=== PATIENT | female | born 1945 | race Caucasian/White ===

== ENCOUNTER 2019-01-09 15:59 | Inpatient (IN) ==
--- OUTSIDE RECORDS SUMMARY | 2019-01-09 16:03 | External Medical Summary | Continuity of Care Document ---
:1945 Author Name Lanny Coleman Address Unavailable Unavailable , Care Team Providers Name Role Phone Murrell DO Unavailable [email or web address] Joaquín RICHARDS Unavailable [email or web address] Kathrin TOMAS M.D. Unavailable Unavailable Unavailable Unavailable Unavailable Problems Acute osteomyelitis (730.00) (M86.10) Allergies and Adverse Reactions Ciprofloxacin HCl TABS (Allergy) Penicillins (Allergy) Medications Oxybutynin Chloride 5 MG Oral Tablet; bid Refills: 0 Lisinopril 20 MG Oral Tablet Refills: 0 Paxil CR 37.5 MG Oral Tablet Extended Release 24 Hour Refills: 0 glipiZIDE-metFORMIN HCl - 5-500 MG Oral Tablet; 2 tabs bid Refills: 0 Januvia 100 MG Oral Tablet Refills: 0 Pravastatin Sodium 40 MG Oral Tablet Refills: 0 Triamcinolone Acetonide 0.5 % External Cream Refills: 0 Sulfamethoxazole-Trimethoprim 800-160 MG Oral Tablet; TAKE ONE TABLET BY MOUTH ONCE DAILY DO Kim Murrell Quantity: 30 Refills: 0 Procedures Procedures not documented Immunizations Immunizations not documented Family History Mother No pertinent family history (V49.89) (Z78.9) Status: Active Plan of Treatment Planned Encounters Appointment; Alondra Yanes CRNP Start: 28-Feb-2019 13:30 Request Planned Observations Planned Goals not documented Results No Known Results Results not documented Encounters Appointment; Alondra Yanes CRNP 28-Feb-2019 13:30 Encounter Diagnosis: Problem not documented
[2019-01-09] MEDS ORDERED: SODIUM CHLORIDE 0.9% 1000ML 500 ML IV ONE (16:27)
--- NOTE | 2019-01-09 16:56 | CT Scan Report ---
HEAD CT NONCONTRAST CT DOSE: 537.48 mGy.cm HISTORY: Stroke symptoms. Stroke evaluation TECHNIQUE: Multiaxial CT images of the head were performed without the use of intravenous contrast. A utomated exposure control was utilized for this study. A dose lowering technique was utilized adheri ng to the principles of ALARA. Comparison: None. Findings: The paranasal sinuses and mastoid air cells are clear. The calvarium and skull base are int act. There is no mass, hematoma, midline shift, acute infarct. White matter hypodensity is nonspecifi c but suggestive of microvascular ischemic change. The ventricles and sulci demonstrate mild age-rela ashok involutional changes. Impression: No acute intracranial abnormality. Atrophy and microvascular ischemic changes. Electronically signed by: Chino Bryant M.D. 01/09/2019 4:55 PM
--- NOTE | 2019-01-09 17:09 | XRay Report ---
XR chest 1V portable HISTORY: weakness COMPARISON: None. FINDINGS: Mild elevation the left hemidiaphragm. The heart is top normal in size. No pleural effusion s. No pneumothorax. No focal lung consolidations to suggest pneumonia. No evidence for pulmonary jun a. IMPRESSION: Mild elevation of the left hemidiaphragm. Otherwise, no acute process within the chest. Electronically signed by: Chino Bryant M.D. 01/09/2019 5:08 PM
[2019-01-09 17:19] LABS: Eosinophils # (auto) 0.03 K/uL (0-0.5); Eosinophils % (auto) 0.5 %; Hematocrit (blood only) 45.6 % (37-47); Immature Granulocytes # (auto) 0.01 K/uL (0.00-0.02); Immature Granulocytes % (auto) 0.2 %; Lymphocytes # (auto) 2.82 K/uL (1.2-3.4); Lymphocytes % (auto) 44.3 %; Mean Corpuscular Hgb Conc 35.1 g/dL (32-36); Mean Corpuscular Volume 84.3 fL (80-100); Mean Platelet Volume 9.4 fL (7.4-10.4); Monocytes % (auto) 6.3 %; Neutrophils % (auto) 48.7 %; Platelet Count 186 K/uL (130-400); RDW Coefficient of Variation 13.6 % (11.5-14.5); RDW Standard Deviation 41.9 fL (36.4-46.3); Red Blood Count 5.41 M/uL (4.2-5.4); White Blood Count 6.36 K/uL (4.8-10.8)
[2019-01-09 17:29] LABS: Appearance Urine Clear (Clear); Bilirubin Urine Negative (Negative); Blood Urine Negative (Negative); Color Urine Yellow; Glucose Urine UA 1+ (Negative); Ketones Urine Trace (Negative); Leukocyte Esterase Urine Negative (Negative); Nitrite Urine Negative (Negative); Protein Urine Negative (Negative); Specific Gravity Urine 1.014 (1.000-1.030); Urobilinogen Urine Negative (Negative)
[2019-01-09 17:32] LABS: Albumin Level 3.2 gm/dl (3.4-5.0); BUN Creatinine Ratio 15.8 (10-20); Calcium 9.3 mg/dl (8.5-10.1); Creatinine Clr Calc Pharmacy 51.6 ml/min; Est GFR (African American) 63.8; Est GFR (Non-African American) 55.1; Magnesium 1.8 mg/dl (1.8-2.4); Potassium 3.7 mmol/L (3.5-5.1)
[2019-01-09 17:33] LABS: Globulin 3.2 gm/dl (2.5-4.0); Total Protein 6.4 gm/dl (6.4-8.2); Troponin I 0.021 ng/ml (0-0.045)
[2019-01-09 18:32] LABS: INR 1.1 (0.9-1.1); Partial Thromboplastin Time 27.7 Seconds (21.0-31.0); Prothrombin Time 11.2 Seconds (9.0-12.0)
--- NOTE | 2019-01-09 19:56 | History & Physical Report ---
Date of Service January 09, 2019 Assessment & Plan (1) Stroke-like symptoms: Patient with progressive functional decline with acute worsening over the last week and 2-3 days. History of HTN, poorly controlled DM, medication nonadherance. CT head suggestive of atrophy and microvascular change. Physical exam with weakness of RUE and LUE, gait instability -Admit to PCU -Telemetry monitoring -Neuro checks -Check CTA head and neck -Check MRI brain -Check 2D echocardiogram -Lipids and AIC with AM labs -Continue Pravastatin 40mg po daily -ASA 81mg po daily -Neurology consultation appreciated Present on Admission?: Yes (2) Diabetes: Poorly controlled. Medication nonadherance. Per report, AIC > 11 at last check per family -Lantus 10u BID -ISS -CC diet -Pharmacy glycemic management consult - patient may benefit from retraining and education after acute issues resolve Present on Admission?: Yes (3) Hypertension: Blood pressure well controlled at present -Continue HCTZ and Lisinopril -Continue to monitor Present on Admission?: Yes (4) Hyperlipidemia: Chronic -Lipid panel in AM -Continue Pravastatin 40mg po daily Present on Admission?: Yes (5) Abnormal LFTs: Patient with elevated AP and Tbili, obstructive pattern, no RUQ discomfort, no jaundice -Repeat LFTs in AM -Check RUQUS (6) Depression: Chronic. Stable -Continue Paxil F/E/N - Heplock. Monitor electrolytes and replete as needed, Heart healthy/CC diet as tolerated Ppx - SCDs Code - Full Dispo - PCU History of Present Illness Chief Complaint: functional decline, stroke-like symptoms Primary Care Provider: Daniela Neves DO Patient is a 73yo C female with history of poorly controlled DM, HTN, HLP presenting with stroke-like symptoms. Patient began to have poor memory and co nfusion a few months ago. These symptoms progressively worsened oer the last week with acute worsening over the last 2-3 days. Family reports poor appetite, increased somnolence, decreased alertness and verbal response as well as weakness in the left leg and left arm, inability to walk, frequent falls, difficulty chewing, slurred speech and word finding issues. Patient denies headache or visual loss but has had some blurry vision of late. +nausea occasionally. Otherwise denies chest pain, palpitations, SOB, abdominal pain, vomiting, diarrhea, constipation. Family reports that she is not checking her blood sugars or taking her medications. Last A1C > 11 ER Course: NSS Allergies Allergy/AdvReac Type Severity Reaction Status Date / Time ciprofloxacin [From Cipro] Allergy Unknown Verified 01/09/19 17:48 Penicillins Allergy Unknown Verified 01/09/19 17:48 SURGICAL TAPE Allergy Unknown Uncoded 01/09/19 17:48 Home Medications Home Medications Medication Instructions Recorded Confirmed Type esomeprazole magnesium [Nexium] 40 mg PO DAILY 01/09/19 01/09/19 History furosemide [Lasix] 20 mg PO DAILY PRN 01/09/19 01/09/19 History glipizide-metformin 2 tab PO BID 01/09/19 01/09/19 History hydrochlorothiazide 25 mg PO HS 01/09/19 01/09/19 History insulin detemir U-100 [Levemir 22 - 25 unit SUBCUT DAILY 01/09/19 01/09/19 History FlexTouch U-100 Insuln] lisinopril 20 mg PO DAILY 01/09/19 01/09/19 History oxybutynin chloride 5 mg PO BID 01/09/19 01/09/19 History paroxetine HCl [Paxil CR] 37.5 mg PO DAILY 01/09/19 01/09/19 History pravastatin [Pravachol] 40 mg PO DAILY 01/09/19 01/09/19 History Past Med/Surg History Medical History Diabetes (Chronic) Hypertension (Chronic) Dyslipidemia Surgical History S/P cataract surgery S/P hysterectomy Family History Other Cancer Coronary heart disease Social History Preferred Language: Macedonian Current Living Situation: Alone Feels Safe at Home: Yes Smoking Status: Former smoker Hx Alcohol Use: No Hx Substance Use: No Review of Systems Review of Systems: All systems reviewed & are unremarkable except as noted in HPI & below Physical Exam Physical Exam: General: patient resting comfortably, NAD, non-toxic in appearance, AA&O to self and location, slow to answer questions Skin: warm, dry, intact, no rashes or lesions HEENT: NC/AT, pupils irregular and unreactive bilaterally, EOMI, anicteric sclera, conjunctiva without injection, external ear normal to inspection and nontender, nares patent, moist mucus membranes, missing teeth, no oropharyngeal lesions, neck supple, trachea midline, no LAD, no thyromegaly, no JVD, no carotid bruits Heart: +S1/S2, regular, no m/r/g Lungs: equal air entry bilaterally, no rales/rhonchi/wheezes Abd: +BS, soft, NT/ND, no masses/organomegaly/ascites Ext: warm, 2+ pulses in UE/LE bilaterally, no clubbing/cyanosis or edema Neuro: AA&O x 2, slow verbal response, appropriate words, no facial droop, CN grossly intact, sensation to lilght touch intact in UE/LE bilaterally, diminished strength of RUE and RLE, 4/5, gait unsteady and shuffling Results & Data Vital Signs (Past 12 Hours) Vital Signs Temp Pulse Pulse Resp BP BP Pulse Ox 01/09/19 18:00 77 20 127/69 96 01/09/19 16:02 36.9 C 82 18 126/70 97 Laboratory Results Lab Results 01/09/19 01/09/19 01/09/19 Range/Units 16:53 16:53 16:53 WBC 6.36 (4.8-10.8) K/uL RBC 5.41 H (4.2-5.4) M/uL Hgb 16.0 (12.0-16.0) g/dL Hct 45.6 (37-47) % MCV 84.3 (80-100) fL MCH 29.6 (25-34) pg MCHC 35.1 (32-36) g/dL RDW Std Deviation 41.9 (36.4-46.3) fL RDW Coeff of Catherine 13.6 (11.5-14.5) % Plt Count 186 (130-400) K/uL MPV 9.4 (7.4-10.4) fL Immature Gran % (Auto) 0.2 % Neut % (Auto) 48.7 % Lymph % (Auto) 44.3 % [place]ade % (Auto) 6.3 % Eos % (Auto) 0.5 % Baso % (Auto) 0.0 % Immature Gran # (Auto) 0.01 (0.00-0.02) K/uL Neut # (Auto) 3.10 (1.4-6.5) K/uL Lymph # (Auto) 2.82 (1.2-3.4) K/uL Meade # (Auto) 0.40 (0.11-0.59) K/uL Eos # (Auto) 0.03 (0-0.5) K/uL Baso # (Auto) 0.00 (0-0.2) K/uL PT Cancelled INR Cancelled APTT Cancelled PTT Ratio Cancelled Sodium 135 L (136-145) mmol/L Potassium 3.7 (3.5-5.1) mmol/L Chloride 95 L (98-107) mmol/L Carbon Dioxide 31 (21-32) mmol/L Anion Gap 9.0 (3-11) BUN 16 (7-18) mg/dl Creatinine 1.00 (0.6-1.2) mg/dl Est Cr Clr Drug Dosing 51.6 ml/min Est GFR ( Amer) 63.8 Est GFR (Non-Af Amer) 55.1 BUN/Creatinine Ratio 15.8 (10-20) Glucose 232 H (70-99) mg/dl Calcium 9.3 (8.5-10.1) mg/dl Magnesium 1.8 (1.8-2.4) mg/dl Total Bilirubin 2.0 H (0.2-1) mg/dl AST 27 (15-37) U/L ALT 16 (12-78) U/L Alkaline Phosphatase 231 H (45-117) U/L Troponin I 0.021 (0-0.045) ng/ml Total Protein 6.4 (6.4-8.2) gm/dl Albumin 3.2 L (3.4-5.0) gm/dl Globulin 3.2 (2.5-4.0) gm/dl Albumin/Globulin Ratio 1.0 (0.9-2) Specimen Hemolysis Urine Color Urine Appearance (Clear) Urine pH (4.5-7.5) Ur Specific [place] (1.000-1.030) Urine Protein (Negative) Urine Glucose (UA) (Negative) Urine Ketones (Negative) Urine Blood (Negative) Urine Nitrite (Negative) Urine Bilirubin (Negative) Urine Urobilinogen (Negative) Ur Leukocyte Esterase (Negative) 01/09/19 Range/Units 17:15 WBC (4.8-10.8) K/uL RBC (4.2-5.4) M/uL Hgb (12.0-16.0) g/dL Hct (37-47) % MCV (80-100) fL MCH (25-34) pg MCHC (32-36) g/dL RDW Std Deviation (36.4-46.3) fL RDW Coeff of Catherine (11.5-14.5) % Plt Count (130-400) K/uL MPV (7.4-10.4) fL Immature Gran % (Auto) % Neut % (Auto) % Lymph % (Auto) % [place] % (Auto) % Eos % (Auto) % Baso % (Auto) % Immature Gran # (Auto) (0.00-0.02) K/uL Neut # (Auto) (1.4-6.5) K/uL Lymph # (Auto) (1.2-3.4) K/uL [place]ade # (Auto) (0.11-0.59) K/uL Eos # (Auto) (0-0.5) K/uL Baso # (Auto) (0-0.2) K/uL PT INR APTT PTT Ratio Sodium (136-145) mmol/L Potassium (3.5-5.1) mmol/L Chloride (98-107) mmol/L Carbon Dioxide (21-32) mmol/L Anion Gap (3-11) BUN (7-18) mg/dl Creatinine (0.6-1.2) mg/dl Est Cr Clr Drug Dosing ml/min Est GFR ( Amer) Est GFR (Non-Af Amer) BUN/Creatinine Ratio (10-20) Glucose (70-99) mg/dl Calcium (8.5-10.1) mg/dl Magnesium (1.8-2.4) mg/dl Total Bilirubin (0.2-1) mg/dl AST (15-37) U/L ALT (12-78) U/L Alkaline Phosphatase (45-117) U/L Troponin I (0-0.045) ng/ml Total Protein (6.4-8.2) gm/dl Albumin (3.4-5.0) gm/dl Globulin (2.5-4.0) gm/dl Albumin/Globulin Ratio (0.9-2) Specimen Hemolysis Urine Color Yellow Urine Appearance Clear (Clear) Urine pH 6.0 (4.5-7.5) Ur Specific [place] 1.014 (1.000-1.030) Urine Protein Negative (Negative) Urine Glucose (UA) 1+ H (Negative) Urine Ketones Trace H (Negative) Urine Blood Negative (Negative) Urine Nitrite Negative (Negative) Urine Bilirubin Negative (Negative) Urine Urobilinogen Negative (Negative) Ur Leukocyte Esterase Negative (Negative) Diagnostic Findings XR chest 1V portable HISTORY: weakness COMPARISON: None. FINDINGS: Mild elevation the left hemidiaphragm. The heart is top normal in size. No pleural effusions. No pneumothorax. No focal lung consolidations to suggest pneumonia. No evidence for pulmonary edema. IMPRESSION: Mild elevation of the left hemidiaphragm. Otherwise, no acute process within the chest. Electronically signed by: Chino Bryant M.D. 01/09/2019 5:08 PM Dictated: 01/09/191705 Transcribed: 01/09/[address]17[address] HEAD [address] NONCONTRAST CT DOSE: 537.48 mGy.cm HISTORY: Stroke symptoms. Stroke evaluation TECHNIQUE: Multiaxial CT images of the head were performed without the use of intravenous contrast. Automated exposure control was utilized for this study. A dose lowering technique was utilized adhering to the principles of ALARA. Comparison: None. Findings: The paranasal sinuses and mastoid air cells are clear. The calvarium and skull base are intact. There is no mass, hematoma, midline shift, acute infarct. White matter hypodensity is nonspecific but suggestive of microvascular ischemic change. The ventricles and sulci demonstrate mild age-related involutional changes. Impression: No acute intracranial abnormality. Atrophy and microvascular ischemic changes. Electronically signed by: Chino Bryant M.D. 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
[2019-01-09] MEDS ORDERED: GLUCAGON FOR INJ 1 MG VIAL SQ PRN (21:07)
[2019-01-09] MEDS ORDERED: INSULIN GLARGINE SOLOSTAR 100 UNITS/ML 3 ML PEN SC SCH (21:07)
[2019-01-09] MEDS ORDERED: DEXTROSE 50% 50 ML SYRINGE IV PRN (21:07)
[2019-01-09] MEDS ORDERED: CARBOHYDRATES FOR HYPOGLYCEMIA PO PRN (21:07)
[2019-01-09] MEDS ORDERED: GLUCOSE 10 TABS/TUBE PO PRN (21:07)
[2019-01-09] MEDS ORDERED: GLUCOSE 40% GEL 15 GM TUBE PO PRN (21:07)
[2019-01-09] MEDS ORDERED: ONDANSETRON INJ 2 MG/ML 2 ML VIAL IV PRN (21:07)
[2019-01-09] MEDS ORDERED: ACETAMINOPHEN 325 MG TAB PO PRN (21:07)
[2019-01-09] MEDS ORDERED: PHARMACIST DISCHARGE MED REC CONSULT PRN (21:07)
[2019-01-09] MEDS ORDERED: PHARMACY GLYCEMIC MGMT CONSULT PRN (21:51)
[2019-01-09] MEDS ORDERED: OPTIRAY 320 125ml IV PRN (22:21)
--- NOTE | 2019-01-09 22:46 | CT Scan Report ---
HEAD & NECK CTA HISTORY: stroke like symptoms TECHNIQUE: Multiaxial CT images of the head were performed following the intravenous administration o f contrast to evaluate the major cerebral vessels. Multiaxial CT images of the neck were also perform ed following the intravenous administration of contrast to evaluate the major cervical vessels. Maxim um intensity projection images were also obtained. A dose lowering technique was utilized adhering to the principles of ALARA. COMPARISON: None. FINDINGS: There is no mass, hematoma, midline shift, or acute infarct. Visualized intracranial internal carotid arteries, distal vertebral arteries, and basilar artery are widely patent. There is no significant s tenosis, occlusion, or aneurysm seen within the bilateral MCAs, sculpture instructor, or right NANCY. Focal high-grade stenosis versus occlusion at the left A2 segment best seen on image 356. However, there is immediate reconstitution of perfusion within the remaining left NANCY.. The major dural venous sinuses are patent . The aortic arch and proximal great vessels are widely patent. There is no significant stenosis, occ lusion, or dissection identified within the bilateral common carotid, internal carotid, or vertebral arteries. Tortuous bilateral internal carotid arteries. Slightly hypoplastic right vertebral artery. IMPRESSION: 1. Focal high-grade stenosis versus occlusion at the left A2 segment. However, there is immediate rec onstitution of perfusion within the remaining left distal NANCY. 2. No significant stenosis, occlusion, or dissection identified within the carotid or vertebral arter ies. Electronically signed by: Chino Bryant M.D. 01/09/2019 10:44 PM
[2019-01-09] MEDS: hydroCHLOROthiazide 25 MG TAB PO SCH (23:28)
[2019-01-09] MEDS: OXYBUTYNIN CHLORIDE 5 MG TAB PO SCH (23:28)
[2019-01-09] MEDS: INSULIN ASPART 100 UNITS/ML 3 ML PEN SC SCH (23:36)
--- NOTE | 2019-01-10 00:24 | Emergency Department Note ---
Entered by Codi Rangel acting as a scribe for Alfonso Pearson MD History of Present Illness General Chief complaint: TIA Symptoms Stated complaint: POSSIBLE RECENT STROKE, CONFUSED, WEAK, DR REFERED Time Seen by Provider: 01/09/19 16:17 Source: patient and family (family members) History of Present Illness Onset (ago): month(s) 1 Location: head Pain Consistency: + other (worsening) Maximum Pain Intensity: 0 Quality: + other (stroke symptoms) Associated symptoms: + confusion, + nausea/vomiting (-nausea, +vomiting) and + other (-numbness/weakness in legs, -abdominal pain, -urination problems, +vision loss, +vocalization issues, +weight loss); no chest pain and no headaches The patient is a 73 year old female who presents to the Emergency Room with complaints of worsening stroke symptoms. The family states that the patient has been experiencing confusion for the past month and a loss of weight, loss of appetite, dragging of her leg, less vocalization, slowed speech, swallowing problems within the past week. The patient states that she vomited the other day that was yellow in color. She denies any headache, chest pain, nausea, numbness or weakness in her legs, abdominal pain, or urination problems. The patient states that she experienced a head injury 2 weeks ago and she experienced a headache immediate after. The family states that she almost fell on her own the other day, but her granddaughter caught her. They state that the patient has a history of diabetes mellitus, high cholesterol, and hypertension. The patient denies any thyroid issues. The family state that the patient has not been taking any medication for her hypertension. They note that the patient also has not been taking her insulin regularly. The family states that the patient has no PCP at the moment. Home Medications Home Medications Medication Instructions Recorded Confirmed Type esomeprazole magnesium [Nexium] 40 mg PO DAILY 01/09/19 01/09/19 History furosemide [Lasix] 20 mg PO DAILY PRN 01/09/19 01/09/19 History glipizide-metformin 2 tab PO BID 01/09/19 01/09/19 History hydrochlorothiazide 25 mg PO HS 01/09/19 01/09/19 History insulin detemir U-100 [Levemir 22 - 25 unit SUBCUT DAILY 01/09/19 01/09/19 History FlexTouch U-100 Insuln] lisinopril 20 mg PO DAILY 01/09/19 01/09/19 History oxybutynin chloride 5 mg PO BID 01/09/19 01/09/19 History paroxetine HCl [Paxil CR] 37.5 mg PO DAILY 01/09/19 01/09/19 History pravastatin [Pravachol] 40 mg PO DAILY 01/09/19 01/09/19 History Allergies Allergy/AdvReac Type Severity Reaction Status Date / Time ciprofloxacin [From Cipro] Allergy Unknown Verified 01/09/19 17:48 Penicillins Allergy Unknown Verified 01/09/19 17:48 SURGICAL TAPE Allergy Unknown Uncoded 01/09/19 17:48 Past Med/Surg History Medical History Diabetes (Chronic) Hypertension (Chronic) Dyslipidemia Surgical History S/P cataract surgery S/P hysterectomy Family History Other Cancer Coronary heart disease Social History Preferred Language: Greenlandic Communication Ability: Effective Glass Edger Required: No Beliefs That Will Affect Care: None Current Living Situation: Alone Other Information That Helps Us Care for You: No Feels Safe at Home: Yes Safety Concerns: Feels Safe At This Time Smoking Status: Former smoker Hx Alcohol Use: No Hx Substance Use: No Review of Systems See HPI for pertinent positives & negatives. and A total of 10 systems reviewed and were otherwise negative Physical Exam Vital Signs Vital Signs - 24 hr 01/09/19 16:02 01/09/19 18:00 Temperature 36.9 C Temperature Source Oral Sepsis Recent Fever Within 48 Hours No Sepsis New/Unexplained Change in Mental Status No Sepsis Action Taken by Nursing No Action Required Pulse Rate 82 Pulse Rate [Right Finger] 77 Respiratory Rate 18 20 Respiratory Effort / Characteristics Non-Labored Non-Labored Spontaneous Respiratory Depth Normal Normal Respiratory Pattern Regular Regular Blood Pressure 126/70 Blood Pressure [Right Arm] 127/69 Blood Pressure Mean 88 Blood Pressure Mean [Right Arm] 88 Blood Pressure Position Sitting Blood Pressure Position [Right Arm] Lying Pulse Oximetry 97 96 Oxygen Delivery Method Room Air Room Air General: Non-ill appearing older female in no acute distress. HEENT: Normal cephalic atraumatic. Pupils are equal round and reactive to light. Extraocular movements are intact. Oropharynx is pink with moist mucous membranes. No swelling of the mouth lips or tongue. Neck: Supple with a midline trachea. No meningeal signs or stiffness, no JVD or bruits. No Stridor. Chest: Clear to auscultation bilaterally. No wheezes or rhonchi. No increased work of breathing. Heart: regular rate and rhythm. Abdomen: Soft nontender, nondistended without rebound guarding or rigidity. Extremities: No cyanosis clubbing or edema. No calf tenderness or asymmetry. Previous surgery to middle finger. Spine/Back. Non tender to palpation. No CVA tenderness Skin: Good turgor without rashes. Neurologic exam: Cranial nerves two through 12 are intact. Motor and sensation are intact and symmetrical throughout. Course 1617: The patient was evaluated in room C9, and a complete history and physical examination were performed 1711: I reevaluated the patient and the nursing staff is currently drawing blood and running her urine sample. 1742: I reevaluated the patient and discussed her test results, she is currently resting comfortably. 1751: I reevaluated the patient and discussed her test results, she is currently resting comfortably. I discussed with the patient and her family the possibility of being evaluated by the hospitalist staff. The patient and her family will discuss her options. 1805: I reevaluated the patient and her and her family agreed to be further evaluated by a hospital staff. 1816: I discussed the case with Dr. Alix Paredes [facility] Hospitalist, she will further evaluate the patient. Reevaluation(s) Reevaluation #1: I discussed the case with Dr. Alix Paredes [facility] Hospitalist, she will further evaluate the patient. Time: 18:16 Administered Medications Hydrochlorothiazide (Hctz) 25 mg PO HS GREGORY Stop: 02/08/19 21:06 Last Admin: 01/09/19 23:28 Dose: 25 mg Documented by: [id number] Insulin Aspart (Novolog Flexpen) 0 units SC ACHS GREGORY Stop: 02/08/19 21:06 Last Admin: 01/09/19 23:36 Dose: 4 units Documented by: [id number] Cosigned by: [id number] Insulin Glargine (Lantus Solostar Pen) 10 units SC BID GREGORY Stop: 02/08/19 21:06 Last Admin: 01/09/19 23:37 Dose: 10 units Documented by: [id number] Cosigned by: [id number] Ioversol (Optiray 320 125ml) 115 ml IV ONCE PRN PRN Reason: Interaction Checking Stop: 01/13/19 22:20 Last Admin: 01/09/19 22:21 Dose: 115 ml Documented by: [id number] Oxybutynin Chloride (Ditropan) 5 mg PO BID GREGORY Stop: 02/08/19 21:06 Last Admin: 01/09/19 23:28 Dose: 5 mg Documented by: [id number] Discontinued Medications Sodium Chloride (Nss 1000ml) 500 mls @ 999 mls/hr IV .Q31M ONE Stop: 01/09/19 16:57 Last Infusion: 01/09/19 17:54 Dose: 0 mls/hr Documented by: [id number] Admin: 01/09/19 17:15 Dose: 999 mls/hr Documented by: [id number] Medical Decision Making Differential Diagnosis Differentials include TIA, CVA, intracranial process, electrolyte abnormality, metabolic derangement, diabetic complication, and cardiac infection. Medical Records Attestation: I reviewed the patient's medical records. Home Medications Current Medication List: was personally reviewed by me Laboratory Data Attestation: I reviewed the patient's lab results. Result diagrams: 01/09/19 16:53 01/09/19 16:53 Lab Results 01/09/19 01/09/19 01/09/19 Range/Units 16:53 16:53 16:53 WBC 6.36 (4.8-10.8) K/uL RBC 5.41 H (4.2-5.4) M/uL Hgb 16.0 (12.0-16.0) g/dL Hct 45.6 (37-47) % MCV 84.3 (80-100) fL MCH 29.6 (25-34) pg MCHC 35.1 (32-36) g/dL RDW Std Deviation 41.9 (36.4-46.3) fL RDW Coeff of Catherine 13.6 (11.5-14.5) % Plt Count 186 (130-400) K/uL MPV 9.4 (7.4-10.4) fL Immature Gran % (Auto) 0.2 % Neut % (Auto) 48.7 % Lymph % (Auto) 44.3 % Valencia % (Auto) 6.3 % Eos % (Auto) 0.5 % Baso % (Auto) 0.0 % Immature Gran # (Auto) 0.01 (0.00-0.02) K/uL Neut # (Auto) 3.10 (1.4-6.5) K/uL Lymph # (Auto) 2.82 (1.2-3.4) K/uL Valencia # (Auto) 0.40 (0.11-0.59) K/uL Eos # (Auto) 0.03 (0-0.5) K/uL Baso # (Auto) 0.00 (0-0.2) K/uL PT Cancelled INR Cancelled APTT Cancelled PTT Ratio Cancelled Sodium 135 L (136-145) mmol/L Potassium 3.7 (3.5-5.1) mmol/L Chloride 95 L (98-107) mmol/L Carbon Dioxide 31 (21-32) mmol/L Anion Gap 9.0 (3-11) BUN 16 (7-18) mg/dl Creatinine 1.00 (0.6-1.2) mg/dl Est Cr Clr Drug Dosing 51.6 ml/min Est GFR ( Amer) 63.8 Est GFR (Non-Af Amer) 55.1 BUN/Creatinine Ratio 15.8 (10-20) Glucose 232 H (70-99) mg/dl POC Glucose (70-99) Calcium 9.3 (8.5-10.1) mg/dl Magnesium 1.8 (1.8-2.4) mg/dl Total Bilirubin 2.0 H (0.2-1) mg/dl AST 27 (15-37) U/L ALT 16 (12-78) U/L Alkaline Phosphatase 231 H (45-117) U/L Troponin I 0.021 (0-0.045) ng/ml Total Protein 6.4 (6.4-8.2) gm/dl Albumin 3.2 L (3.4-5.0) gm/dl Globulin 3.2 (2.5-4.0) gm/dl Albumin/Globulin Ratio 1.0 (0.9-2) Specimen Hemolysis Urine Color Urine Appearance (Clear) Urine pH (4.5-7.5) Ur Specific Esopus (1.000-1.030) Urine Protein (Negative) Urine Glucose (UA) (Negative) Urine Ketones (Negative) Urine Blood (Negative) Urine Nitrite (Negative) Urine Bilirubin (Negative) Urine Urobilinogen (Negative) Ur Leukocyte Esterase (Negative) 01/09/19 01/09/19 01/09/19 Range/Units 17:03 17:15 18:09 WBC (4.8-10.8) K/uL RBC (4.2-5.4) M/uL Hgb (12.0-16.0) g/dL Hct (37-47) % MCV (80-100) fL MCH (25-34) pg MCHC (32-36) g/dL RDW Std Deviation (36.4-46.3) fL RDW Coeff of Catherine (11.5-14.5) % Plt Count (130-400) K/uL MPV (7.4-10.4) fL Immature Gran % (Auto) % Neut % (Auto) % Lymph % (Auto) % Valencia % (Auto) % Eos % (Auto) % Baso % (Auto) % Immature Gran # (Auto) (0.00-0.02) K/uL Neut # (Auto) (1.4-6.5) K/uL Lymph # (Auto) (1.2-3.4) K/uL Valencia # (Auto) (0.11-0.59) K/uL Eos # (Auto) (0-0.5) K/uL Baso # (Auto) (0-0.2) K/uL PT 11.2 INR 1.1 APTT 27.7 PTT Ratio 1.0 Sodium (136-145) mmol/L Potassium (3.5-5.1) mmol/L Chloride (98-107) mmol/L Carbon Dioxide (21-32) mmol/L Anion Gap (3-11) BUN (7-18) mg/dl Creatinine (0.6-1.2) mg/dl Est Cr Clr Drug Dosing ml/min Est GFR ( Amer) Est GFR (Non-Af Amer) BUN/Creatinine Ratio (10-20) Glucose (70-99) mg/dl POC Glucose 231 H (70-99) Calcium (8.5-10.1) mg/dl Magnesium (1.8-2.4) mg/dl Total Bilirubin (0.2-1) mg/dl AST (15-37) U/L ALT (12-78) U/L Alkaline Phosphatase (45-117) U/L Troponin I (0-0.045) ng/ml Total Protein (6.4-8.2) gm/dl Albumin (3.4-5.0) gm/dl Globulin (2.5-4.0) gm/dl Albumin/Globulin Ratio (0.9-2) Specimen Hemolysis Urine Color Yellow Urine Appearance Clear (Clear) Urine pH 6.0 (4.5-7.5) Ur Specific Esopus 1.014 (1.000-1.030) Urine Protein Negative (Negative) Urine Glucose (UA) 1+ H (Negative) Urine Ketones Trace H (Negative) Urine Blood Negative (Negative) Urine Nitrite Negative (Negative) Urine Bilirubin Negative (Negative) Urine Urobilinogen Negative (Negative) Ur Leukocyte Esterase Negative (Negative) Imaging Data Radiologist's Impression: Radiology results as stated below per my review and the radiologist's interpretation: HEAD CT NONCONTRAST CT DOSE: 537.48 mGy.cm HISTORY: Stroke symptoms. Stroke evaluation TECHNIQUE: Multiaxial CT images of the head were performed without the use of intravenous contrast. Automated exposure control was utilized for this study. A dose lowering technique was utilized adhering to the principles of ALARA. Comparison: None. Findings: The paranasal sinuses and mastoid air cells are clear. The calvarium and skull base are intact. There is no mass, hematoma, midline shift, acute infarct. White matter hypodensity is nonspecific but suggestive of microvascular ischemic change. The ventricles and sulci demonstrate mild age-related involuti onal changes. Impression: No acute intracranial abnormality. Atrophy and microvascular ischemic changes. Electronically signed by: Chino Bryant M.D. 01/09/2019 4:55 PM XR chest 1V portable HISTORY: weakness COMPARISON: None. FINDINGS: Mild elevation the left hemidiaphragm. The heart is top normal in size. No pleural effusions. No pneumothorax. No focal lung consolidations to suggest pneumonia. No evidence for pulmonary edema. IMPRESSION: Mild elevation of the left hemidiaphragm. Otherwise, no acute process within the chest. Electronically signed by: Chino Bryant M.D. 01/09/2019 5:08 PM ECG Data Attestation: I personally reviewed and interpreted this ECG as follows: Indication: other (poor baseline) Rate (beats per minute): 79 Rhythm: normal sinus Findings: + other (prolonged T wave) and + T-wave inversion (anterior, inferior, and lateral ) Blood Pressure Blood Pressure Findings: Normal blood pressure MDM Narrative This patient comes in as described above. She was placed in room C9. She is brought in by her family after having increasing weakness. She has had intermittent confusion. she has had slurred speech at times, she was dragging her right foot the other day. They are concerned that she may be having strokes. She also has fallen several times. She does live alone. On exam, she has a nonfocal neurologic and has been afebrile. She has no external signs of trauma. IV access established and multiple blood testing was obtained she had extensive work-up. CAT scan of her head was unremarkable. Chest x-ray was unremarkable. EKG does not suggest acute coronary syndrome or significant arrhythmia. She has no acute electrolyte or metabolic abnormalities. Her blood sugar was mildly elevated but no evidence to suggest DKA. She has nothing to suggest UTI. I do think she needs to be admitted/observed for further inpatient treatment and relation. I am concerned that she is falling a lot and may be h aving TIAs and needs to have a further neurologic work-up. I have consulted Dr. Rossi to see her in the ER for these measures. Impression & Plan Weakness, TIA (transient ischemic attack), Diabetes, Frequent falls Discharge Plan Visit Data *Final* Discharge Date/Time: 01/09/19 19:53 Chief Complaint: TIA Symptoms Stated Complaint: POSSIBLE RECENT STROKE, CONFUSED, WEAK, DR REFERED ED Provider: Alfonso Pearson Discharge Problem: Weakness, TIA (transient ischemic attack), Diabetes, Frequent falls Patient Disposition: Admitted As Inpatient Discharge Instructions Interventions: ED Discharge Assessment Last Done: 01/09/19 19:53 The scribe's documentation has been prepared under my direction and personally reviewed by me in its entirety. I confirm that the note above accurately reflects all work, treatment, procedures, and medical decision making performed by me.
[2019-01-10] MEDS ORDERED: INSULIN ASPART 100 UNITS/ML 3 ML PEN SC SCH (02:00)
[2019-01-10 06:01] LABS: Estimated Average Glucose 358 mg/dl; Hemoglobin A1C 14.1 % (4.5-5.6)
[2019-01-10 06:05] LABS: Hematocrit (blood only) 45.1 % (37-47); Hemoglobin 15.6 g/dL (12.0-16.0); Mean Corpuscular Hgb Conc 34.6 g/dL (32-36); Mean Corpuscular Volume 84.9 fL (80-100); Mean Platelet Volume 9.2 fL (7.4-10.4); Platelet Count 181 K/uL (130-400); RDW Coefficient of Variation 13.6 % (11.5-14.5); RDW Standard Deviation 41.8 fL (36.4-46.3); Red Blood Count 5.31 M/uL (4.2-5.4); White Blood Count 6.42 K/uL (4.8-10.8)
--- NOTE | 2019-01-10 06:46 | Magnetic Resonance Report ---
MRI OF THE BRAIN WITHOUT CONTRAST CLINICAL HISTORY: Stroke-like symptoms. COMPARISON STUDY: Head CT and CTA of the head performed earlier today. TECHNIQUE: Utilizing a 1.5 Maeve magnet and dedicated coil, multiplanar, multiecho imaging of the bra in was performed without IV contrast. FINDINGS: Note is made of multiple foci of restricted diffusion within the medial left frontal lobe w hich measure up to 1.2 cm. These reflect acute infarcts. There is no mass effect or hemorrhage. There is an old infarct within the posterior left periventricular frontal lobe. Mild atrophy is noted. The basilar cisterns are patent. There are no extra-axial collections. Flow-voids for the major intracra nial vessels are present. Calvarial signal is maintained. White matter T2 hyperintense foci reflect s mall vessel disease. 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 No mass effect or hemorrhage. Electronically signed by: Zachery Waite M.D. 01/10/2019 6:45 AM
[2019-01-10 06:51] LABS: BUN Creatinine Ratio 13.6 (10-20); Bilirubin Direct 0.3 mg/dl (0-0.2); Bilirubin,Total 1.7 mg/dl (0.2-1); Calcium 8.8 mg/dl (8.5-10.1); Creatinine Clr Calc Pharmacy 53.2 ml/min; Est GFR (African American) 66.2; Est GFR (Non-African American) 57.1; Potassium 2.9 mmol/L (3.5-5.1); Total Protein 5.8 gm/dl (6.4-8.2)
[2019-01-10 06:57] LABS: Estimated Average Glucose 358 mg/dl; Hemoglobin A1C 14.1 % (4.5-5.6)
[2019-01-10 07:04] LABS: Basophils # (auto) 0.01 K/uL (0-0.2); Basophils % (auto) 0.2 %; Eosinophils # (auto) 0.09 K/uL (0-0.5); Eosinophils % (auto) 1.4 %; Immature Granulocytes # (auto) 0.01 K/uL (0.00-0.02); Immature Granulocytes % (auto) 0.2 %; Lymphocytes # (auto) 3.71 K/uL (1.2-3.4); Lymphocytes % (auto) 57.8 %; Monocytes % (auto) 6.2 %; Neutrophils % (auto) 34.2 %
--- NOTE | 2019-01-10 08:31 | Ultrasound Report ---
ULTRASOUND RIGHT UPPER QUADRANT ABDOMEN CLINICAL HISTORY: Abnormal liver function studies. COMPARISON STUDY: No priors. TECHNIQUE: Real-time, grayscale, and color flow sonography of the right upper quadrant of the abdomen was performed. Images are reviewed in the transverse and longitudinal planes. FINDINGS: Liver: The liver is normal in size and echotexture. There is no intrahepatic biliary ductal dilatatio n. The main portal vein is patent. Gallbladder: The gallbladder is distended measure up to 12 cm, and the gallbladder is filled with sha dowing gallstones and sludge. The gallbladder wall is mildly thickened measuring up to 5 mm. There is no pericholecystic fluid. A sonographic Saucedo's sign is reportedly absent. The common bile duct dari sures up to 0.6 cm in diameter. Pancreas: Visualized portions of the pancreatic head and body are normal in appearance. The splenic v ein is patent. Right kidney: Survey images of the right kidney demonstrate cortical atrophy. There is no hydronephro sis. A subcentimeter cyst is noted in the interpolar region. Ascites: None. IMPRESSION: 1. The gallbladder is distended, thick-walled, and filled with shadowing gallstones and sludge. A son ographic Saucedo's sign is reportedly absent, and findings are equivocal for acute versus chronic chol ecystitis which is not excluded. Clinical correlation will be required. Consider nuclear hepatobiliar y scan for further assessment and to assess for cystic duct obstruction. 2. There is no intra or extrahepatic biliary ductal dilatation. Electronically signed by: Tyshwan Little M.D. 01/10/2019 8:29 AM
[2019-01-10] MEDS ORDERED: INSULIN GLARGINE SOLOSTAR 100 UNITS/ML 3 ML PEN SC ONE ×2 (09:00→12:00)
[2019-01-10] MEDS: PRAVASTATIN SOD 40 MG TAB PO SCH (09:27)
[2019-01-10] MEDS: PARoxetine HCl CONTROLLED REL 12.5 MG TABCR PO SCH (09:27)
[2019-01-10] MEDS: PANTOprazole 40 MG TAB PO SCH (09:27)
[2019-01-10] MEDS: LISINOPRIL 20 MG TAB PO SCH (09:27)
[2019-01-10] MEDS: OXYBUTYNIN CHLORIDE 5 MG TAB PO SCH ×2 (09:27→20:58)
[2019-01-10] MEDS: ASPIRIN 81 MG ECTAB PO SCH ×2 (09:27→12:59)
[2019-01-10] MEDS: INSULIN ASPART 100 UNITS/ML 3 ML PEN SC SCH ×4 (09:32→20:57)
--- NOTE | 2019-01-10 10:11 | Neurology Consultation ---
Date of Consultation January 10, 2019 Assessment & Plan (1) Acute left NANCY ischemic stroke: Acute ischemic stroke within the left anterior cerebral artery distribution producing mild right lower extremity weakness and perhaps a subtle alteration in speech spontaneity, but without sherry aphasia. Poorly controlled insulin-dependent diabetes mellitus is a significant stroke risk factor for this patient in addition to her history of hyperlipidemia and hypertension. Agree with starting aspirin 81 mg/day. Continue with statin. Patient will need to continue to work with her physicians for improved control of her diabetes mellitus. Consultations with PT/OT/speech therapy. Follow-up with results of echocardiogram. History of Present Illness Reason for Consultation: Stroke Requesting Physician: Penelope Rossi DO Attending Physician: Penelope Rossi DO History of Present Illness The patient is a 73-year-old female with a chief complaint of weakness and heaviness affecting the right leg which is been present for the past few days, exact onset not entirely clear, however. She also has been observed to be much less talkative than usual with some slowed speech and some associated difficulty with swallowing. The symptoms have been persistent and occur in the context of several other systemic symptoms including nausea, vomiting, and weight loss. Past medical history notable for poorly controlled insulin-dependent diabetes mellitus and noncompliance with treatment. The patient is a poor historian. Past medical history also notable for hypertension, hyperlipidemia, and depression. She has been diagnosed with multiple small acute infarcts within th e left frontal lobe, within the left anterior cerebral artery distribution. Results of her imaging are described below. She was not taking antiplatelet therapy as an outpatient. An abdominal ultrasound has revealed a distended gallbladder. The findings are potentially chronic. A GI/surgical work-up is ongoing. Allergies Allergy/AdvReac Type Severity Reaction Status Date / Time ciprofloxacin [From Cipro] Allergy Unknown Verified 01/09/19 17:48 Penicillins Allergy Unknown Verified 01/09/19 17:48 SURGICAL TAPE Allergy Unknown Uncoded 01/09/19 17:48 Home Medications Home Medications Medication Instructions Recorded Confirmed Type esomeprazole magnesium [Nexium] 40 mg PO DAILY 01/09/19 01/09/19 History furosemide [Lasix] 20 mg PO DAILY PRN 01/09/19 01/09/19 History glipizide-metformin 2 tab PO BID 01/09/19 01/09/19 History hydrochlorothiazide 25 mg PO HS 01/09/19 01/09/19 History insulin detemir U-100 [Levemir 22 - 25 unit SUBCUT DAILY 01/09/19 01/09/19 History FlexTouch U-100 Insuln] lisinopril 20 mg PO DAILY 01/09/19 01/09/19 History oxybutynin chloride 5 mg PO BID 01/09/19 01/09/19 History paroxetine HCl [Paxil CR] 37.5 mg PO DAILY 01/09/19 01/09/19 History pravastatin [Pravachol] 40 mg PO DAILY 01/09/19 01/09/19 History Patient History Medical History Diabetes (Chronic) Hypertension (Chronic) Dyslipidemia Surgical History S/P cataract surgery S/P hysterectomy Family History Other Cancer Coronary heart disease Social History Preferred Language: British Communication Ability: Effective Compressor Technician Required: No Beliefs That Will Affect Care: None Current Living Situation: Alone Other Information That Helps Us Care for You: No Feels Safe at Home: Yes Safety Concerns: Feels Safe At This Time Smoking Status: Former smoker Hx Alcohol Use: No Hx Substance Use: No Review of Systems Constitutional: no fever and no chills Eyes: no blind spots and no diplopia Ear, Nose, Mouth, Throat: no hearing loss Respiratory: no cough and no dyspnea Cardiovascular: no chest pain and no palpitations Gastrointestinal: as per Subjective / HPI, + nausea and + vomiting Genitourinary: no dysuria Musculoskeletal: no myalgia Integumentary: no rash and no lesions Neurologic: as per Subjective / HPI Psychiatric: no depression and no anxiety Hematologic / Lymphatic: no easy bleeding and no easy bruising Physical Exam Physical Exam: The patient is a well-developed, well-nourished elderly female. She is lying comfortably in bed in no acute distress. She is alert and fully oriented. Recent and remote memory intact. Attention and concentration normal. Patient is able to name objects and repeat phrases. She provides a limited degree of spontaneous speech, however. Patient exhibits an age-appropriate fund of knowledge and normal comprehension of vocabulary. Visual romero full to confrontation. Visual acuity normal. Pupils equal round react to light and accommodation. Eye movements normal. Facial sensation intact. There is no facial droop or weakness. Hearing intact. Palate elevates to midline. Shoulder shrug intact. Tongue protrudes to midline. There is a length dependent deficit to all sensory modalities in all 4 limbs. Deep tendon reflexes are diffusely diminished. The right plantar response is equivocal, left plantar response downgoing. There is no dysdiadochokinesia or dysmetria with [id number] or [id number] bilaterally. Movement initiation for the right lower extremity is slightly prolonged compared to the left. Ophthalmoscopic examination reveals normal-appearing optic disks and posterior segments. No papilledema or hemorrhages. Carotid pulses normal bilaterally, no bruits to auscultation. Gait and station not tested due to safety concerns. Patient exhibits normal muscle strength and tone for all 4 limbs proximally and distally. There is no atrophy. No abnormal movements observed. Results & Data Vital Signs (Past 12 Hours) Vital Signs Temp Pulse Pulse Resp BP BP Pulse Ox 01/10/19 07:49 36.5 C 67 16 113/75 93 01/10/19 07:16 72 01/10/19 04:00 36.4 C L 67 20 117/70 95 01/10/19 00:00 94 H 01/09/19 23:25 36.8 C 77 18 125/86 94 01/09/19 21:45 36.9 C 89 18 127/76 94 Laboratory Results Recently completed labs reviewed. WBC 6.42, hemoglobin 15.6, hematocrit 45.1, platelet count 181, sodium 139, potassium 2.9, BUN 13, creatinine 0.97, glucose 129, hemoglobin A1c 14.1, triglycerides 168, cholesterol 127, LDL 52, VLDL 34, HDL [address] of the head completed yesterday was negative for hemorrhage or acute process. There is atrophy and chronic microvascular ischemic change. Images and report reviewed. A CT angiogram of the head and neck revealed a focal high-grade stenosis versus occlusion at the left A2 segment with immediate reconstitution of perfusion within the remaining left distal NANCY. Otherwise, no significant stenosis, occlusion, or dissection identified within the carotid or vertebral arteries. A brain MRI reveals multiple small acute infarcts within the left frontal lobe within the left anterior cerebral artery distribution. No mass-effect or hemorrhage. Images and report reviewed. Abdominal ultrasound reveals a distended gallbladder filled with gallstones and sludge. Findings potentially chronic.
--- NOTE | 2019-01-10 10:40 | Pharmacy Report ---
Glycemic Control Consultation - Date of Service January 10, 2019 - Scope Scope: Glycemic Pharmacist consulted for glycemic control and to write orders per [facility] inpatient glycemic control protocol - Objective Weight: 93.6 kg Accuchecks BSG (last 24hrs): 01/09/19 01/09/19 01/09/19 16:53 17:03 20:21 Glucose 232 H POC Glucose 231 H 190 H 01/09/19 01/10/19 01/10/19 23:33 01:52 05:29 Glucose 129 H POC Glucose 226 H 140 H 01/10/19 07:28 Glucose POC Glucose 146 H Laboratory Data (last 24hrs): 01/09/19 01/10/19 16:53 05:29 Potassium 3.7 2.9 L D Carbon Dioxide 31 34 H Anion Gap 9.0 7.0 Creatinine 1.00 0.97 Est Cr Clr Drug Dosing 51.6 53.2 HbA1c: 14.1 % (4.5-5.6) H 01/10/19 05:29 - Recent Pertinent Medications Outpatient Anti-diabetic Regimen: * Non-adherence to the following medications noted per medication reconciliation * Levemir 22-25 units SC daily * Glipizide/metformin 2 tab po BID * A1c = 14.1 % on 01/10/19 The patient is currently receiving: * Basal insulin: Lantus 10 units x1 01/09 PM * Correctional Insulin: Novolog Correction per scale ACHS Goal Range: Low 100 mg/dL - High 140 mg/dL Correction Factor: 25 mg/dL/unit * Prandial insulin: Per carb ratio of 1 unit per 8 grams CHO consumed * Oral Agents: On hold Risk Factors for Insulin Resistance: * Diet: NPO - Assessment & Plan Assessment & Plan: ASSESSMENT: * 73 yo F admitted with CVA on 01/09. Now also with concern for cholecystitis per US - NPO status for now, possible surgical intervention. * Poorly controlled T2DM as outpatient per significantly elevated HbA1c of 14.1% - non-adherence noted. Patient will likely benefit from further education while inpatient r/e impact of poorly controlled T2DM/non-adherence outpatient it relates to significant stroke risk factor * BSG's trended down significantly from 232 mg/dL yesterday to 146 mg/dL today after only 10 units of Lantus and 4 units of Novolog. Patient was NPO this AM therefore Lantus held, but is now eating lunch (cholecystitis likely chronic / no acute intervention required). BSG increased slightly from breakfast to lunch despite correctional insulin administered at breakfast. Will start Lantus as slightly higher dose now, then add a scale qPM based on weight-based estimates * Continue with weight-based moderate stress estimate Novolog PLAN FOR INPATIENT GLYCEMIC CONTROL: * Hold outpatient oral diabetes medications * Basal insulin: Lantus 15 units SQ x1 now, then qPM based on BSG * 0 units for BSG less than 140 mg/dL * 9 units for BSG 140-180 mg/dL * 16 units for BSG greater than 180 mg/dL * Bolus insulin * NovoLog per scale ACHS or Q6hrs while NPO * Goal Range: Low 100 mg/dL - High 140 mg/dL * Correction Factor: 25 mg/dL/unit * Nutritional / Prandial insulin per carb ratio of 1 unit per 8 grams CHO consumed * Please note that the plan above was derived based on current level of insulin resistance and hospital stress. These recommendations are appropriate for inpatient admission only. Plan of care upon discharge will need to be reassessed to avoid potential outpatient hypo/hyperglycemia. Thank you.
--- NOTE | 2019-01-10 11:17 | Family Medicine Progress Note ---
Date of Service January 10, 2019 Assessment & Plan (1) Acute left NANCY ischemic stroke: Eleanor is 73-year-old female with a past medical history of poorly controlled type 2 diabetes mellitus (A1c 14.1% on admit), hypertension, hyperlipidemia who presented with 2 to 3 days of poverty of speech, somnolence, and word finding difficulty. She has been admitted for stroke like symptom evaluation. Acute left NANCY ischemic stroke She presented with poverty of speech, mild dysarthria, and increased fatigue and somnolence. CTH did not show any acute findings, follow-up MRIB showed multiple small acute infarcts within the left frontal lobe within the left anterior cerebral artery distribution. No mass effect or hemorrhage. Given her slow onset of symptoms over 2 to 3 days she was not a candidate for thrombolytic therapy She does not have any history of fibrillation, DVT, or septal defects. Cardiac echo ordered on admission for further evaluation. Her stroke is focal to the left NANCY and is in the setting of poorly controlled diabetes with an A1c of 14.1%, hypertension and a history of hyperlipidemia. Improved management of her diabetes as below will be critical to her house in the future Neurology consulted, recommended starting aspirin 81 mg daily and continuing pravastatin. Appreciate recommendations. Right upper quadrant abdominal pain, hyperbilirubinemia, concern for cholecystitis She also had reports of nausea/vomiting with elevated T bili with a predominantly direct component concerning for cholecystitis USRUQ: Gallbladder distended to 12 cm, gallbladder is filled with shadowing gallstones and sludge. Wall is mildly thickened measuring up to 5 mm, common bile duct measures up to 0.6 cm in diameter, no cardoza's signs She has no leukocytosis On physical exam she has minimal right upper quadrant tenderness Suspect chronic cholelithiasis without acute cholecystitis. Given that she is afebrile, doing clinically well, and her changes on ultrasound likely reflect a chronic process in context of a very high surgical risk with new stroke and uncontrolled diabetes will follow clinically with medical management for now. If she develops a fever or leukocytosis have a low threshold to start empiric antibiotics and consult surgery for further evaluation. Low-fat, diabetic diet. CBC, CMP, bilirubin daily Type 2 diabetes mellitus, uncontrolled, admission A1c 14.1% Previously on insulin detemir 22-25 units daily plus glipizidemetformin twice daily to admission Noncompliant with medications Pharmacy insulin consult placed Will require extensive diabetes education and identification of optimal insulin regimen based on her in hospital needs. Continue to evaluate requirements over the next 24 hours. Hypertension Continue PUTTY MAKER hydrochlorothiazide 25 mg nightly Continue PUTTY MAKER lisinopril 20 mg daily Not currently on a beta-raya Hyperlipidemia Depression Chronic, stable, continue PUTTY MAKER Paxil Diet: Low-fat, diabetic diet DVT prophylaxis: SCDs. Add heparin subcu CODE STATUS: Full code Disposition: Ongoing (2) Abnormal LFTs: (3) Diabetes: Supervising Physician Co-Signing Physician Notes I personally examined the patient and verified all romero points of history and exam, discussed case, and agree with decision making with Dr Tomas. No meaningful HPI review of systems obtained from patient. She is eating and feeling okay at the time of eating, with no complaints of abdominal pain or nausea.Her family notes that her mental status is actually been this bad since about July or August.They may be endorse a little bit of noticeable forgetfulness prior to that, but seemed to not really of noticed much, although it sounds like there are other family members to watch her more closely at home. They did note that she was not taking care of her diabetes at all. Vitals noted, in general she is sitting up in bed no distress. She is not very talkative, she shows no facial droop. Breathing is unlabored no accessory muscle use good effort. Skin shows no rashes no pallor or icterus. CVAanterior cerebral artery distribution, likely intra-arterial thrombosis related predominantly to massively uncontrolled diabetes. Aspirin, secondary risk reduction.Statin. Markedly uncontrolled type 2 [id number] of greater than 14, this is a significant contributor if not the main cause for her vascular disease leading to her stroke. We will work on better glycemic control here, my concern would be that her chronically altered mental status is likely precluding her from being aware of taking care of herself rather than "regular noncompliance"Continu e current care and follow sugars closely. Cholecystitisshe has a little bit of symptoms that may suggest on and off biliary symptoms. Her ultrasound is noted, she does not have a white count, does not have a fever, bilirubin is only mildly elevated. I suspect she has chronic cholecystitis rather than acute. More than likely the something that needs to be dealt with, but it will likely be better for her if we are only able to recover her from the stroke and control her sugars better first. Certainly should she spike a fever or have any other worsening biliary symptoms, then we would definitely need to act sooner. Otherwise we will work on low-fat diet observation serial exams, and then surgical evaluation expedited as she recovers from the stroke. Altered mental statusthe family brought her in for altered mental status that they were attributing to the stroke, but the stroke seems to be far more acute than an altered mental status pattern is been going on for about the last 6 m [facility]. I would like to be on to talk with family that seems to know her chronic situation better, my concern being that she may have had slowly progressive dementia, and what we are seeing now is progressing to where she is no longer able to hide/compensate for it. Will check TSH and B12 to look for more reversible situations, and will ask neurology for input in this regard as well. At this point though the unfortunate working diagnosis would be that while her acute changes related to the stroke or chronic changes are more than likely related to an overlying picture of dementia. Certainly need to follow her mental status further investigate further and discuss with family further however. Tiburcio Webster is a poor historian. She reports she is hungry this morning. She has a little bit of right upper quadrant pain, but feels okay at rest. She seems bedside with her two daughters. They report that she is normally "a chatterbox "but that lately she has not been very talkative that her speech seems a little bit slurred. She denies pain. She feels tired, is not sure if she is focally weak. She has not had any nausea, or vomiting today. She reports she is hungry and would like something to eat and drink. Review of Systems Review of Systems: Pt is a poor historian Constitutional: Denies fever. Endorses weigh loss. Eyes: Endorses blurry vision ENT: Denies ear pain, sore throat, sinus pain Cardiovascular: Denies chest pain, chest pressure, palpitations, extremity swelling Respiratory: Denies shortness of breath, cough, sputum production, difficulty breathing Gastrointestinal: Endorses mild RUQ pain, N/V on admission but none today. -D/C Genitourinary: Denies pain with urination, urinary urgency, urinary frequency Musculoskeletal: Denies weakness, muscle aches/pain, joint aches/pain Integumentary:Denies new rash, lesions, bruising Neurological: Denies headache. Endorses weakness on admit, she is not sure how weak she is today. Physical Exam Physical Exam: General: A&Ox3. NAD. Cooperative. HEENT: Atraumatic, normocephalic. Pulm: CTAB A&P. -wheezes, -rales, -rhonchi. Symmetrical chest rise. No increase work of breathing. No respiratory distress. Cardiac: RRR, -mrg. Radial pulses intact and symmetrical. Abdominal: Mild tenderness to RUQ without murphys, rebound, or guarding. Nondistended, soft. BS present. Extremity: No distal extremity swelling, warmth, or asymmetry. Neurologic: A&Ox3. Poverty of speech with mild dysarthia. She answers questions appropriately and can follow a two step command. EoM intact without nystagmus. no visual field cuts. PERLAA Facial sensation intact in all distributions No facial asymmetry. Facial strength intact and symmetrical in all distributions. Tongue protrudes midlines. Sensation intact to soft touch, sharp touch, and temperature in the distal extremities bilaterally without deficit. Minimal spontaneous extremity movement at rest. Elbow flexion/extension, wrist flexion/extension, finger flexion/extension, intraosseal strength, hip flexion, knee flexion/extension, ankle dorsiflexion/plantarflexion symmetrical with intact strength against resistance. Slight R Leg delay in initiation on exam by neurology observed at time at visit. Bicepts, Patellar DTRs diminished symmetrically. Results & Data Vital Signs (Past 12 Hours) Vital Signs Temp Pulse Pulse Resp BP BP Pulse Ox 01/10/19 07:49 36.5 C 67 16 113/75 93 01/10/19 07:16 72 01/10/19 04:00 36.4 C L 67 20 117/70 95 01/10/19 00:00 94 H 01/09/19 23:25 36.8 C 77 18 125/86 94 Resident Activity Tracking Resident Involvement: Resident Care Provided Care Provided: Adult Hospital Medicine (1) Diabetes Diabetes mellitus complication status: with unspecified complications Diabetes mellitus intermediate card tender insulin use: unspecified long-term insulin use status Diabetes mellitus type: type 2 Qualified Code(s): E11.8 - Type 2 diabetes mellitus with unspecified complications
[2019-01-10] MEDS ORDERED: MICONAZOLE NITRATE POWDER 43 GM EXT PRN (15:14)
[2019-01-10] MEDS: HEPARIN SOD 5,000 UNIT/0.5 ML VIAL SQ SCH (20:57)
[2019-01-10] MEDS: INSULIN GLARGINE SOLOSTAR 100 UNITS/ML 3 ML PEN SC SCH (20:57)
[2019-01-10] MEDS: hydroCHLOROthiazide 25 MG TAB PO SCH (20:58)
[2019-01-11 05:55] LABS: Hematocrit (blood only) 46.5 % (37-47); Hemoglobin 16.2 g/dL (12.0-16.0); Mean Corpuscular Hgb Conc 34.8 g/dL (32-36); Mean Platelet Volume 9.6 fL (7.4-10.4); Platelet Count 176 K/uL (130-400); RDW Coefficient of Variation 13.7 % (11.5-14.5); Red Blood Count 5.41 M/uL (4.2-5.4); White Blood Count 6.42 K/uL (4.8-10.8)
[2019-01-11 06:23] LABS: Albumin Level 2.8 gm/dl (3.4-5.0); BUN Creatinine Ratio 13.5 (10-20); Bilirubin Direct 0.3 mg/dl (0-0.2); Calcium 8.7 mg/dl (8.5-10.1); Creatinine Clr Calc Pharmacy 51.3 ml/min; Est GFR (African American) 63.1; Est GFR (Non-African American) 54.4; Potassium 2.9 mmol/L (3.5-5.1)
[2019-01-11 06:34] LABS: Albumin Globulin Ratio 0.9 (0.9-2); Bilirubin,Total 1.4 mg/dl (0.2-1); Total Protein 5.8 gm/dl (6.4-8.2)
[2019-01-11 06:41] LABS: Basophils # (auto) 0.01 K/uL (0-0.2); Basophils % (auto) 0.2 %; Eosinophils # (auto) 0.08 K/uL (0-0.5); Eosinophils % (auto) 1.2 %; Lymphocytes # (auto) 3.65 K/uL (1.2-3.4); Lymphocytes % (auto) 56.9 %; Monocytes # (auto) 0.29 K/uL (0.11-0.59); Monocytes % (auto) 4.5 %; Neutrophils # (auto) 2.39 K/uL (1.4-6.5); Neutrophils % (auto) 37.2 %; RBC Morphology Unremarkable
[2019-01-11] MEDS ORDERED: MAGNESIUM OXIDE 400 MG TAB PO ONE (07:45)
[2019-01-11] MEDS: PANTOprazole 40 MG TAB PO SCH (07:46)
[2019-01-11] MEDS: ASPIRIN 81 MG ECTAB PO SCH (07:46)
[2019-01-11] MEDS: OXYBUTYNIN CHLORIDE 5 MG TAB PO SCH ×2 (07:46→20:57)
[2019-01-11] MEDS: PARoxetine HCl CONTROLLED REL 12.5 MG TABCR PO SCH (07:46)
[2019-01-11] MEDS: LISINOPRIL 20 MG TAB PO SCH (07:46)
[2019-01-11] MEDS: POTASSIUM CHLORIDE / WTR 10 MEQ/100 ML PLCT IV SCH ×4 (07:46→10:36)
[2019-01-11] MEDS: PRAVASTATIN SOD 40 MG TAB PO SCH (07:47)
[2019-01-11] MEDS: INSULIN ASPART 100 UNITS/ML 3 ML PEN SC SCH ×4 (08:06→20:55)
[2019-01-11] MEDS: HEPARIN SOD 5,000 UNIT/0.5 ML VIAL SQ SCH ×2 (08:07→20:58)
[2019-01-11] MEDS ORDERED: INSULIN GLARGINE SOLOSTAR 100 UNITS/ML 3 ML PEN SC ONE (09:00)
--- NOTE | 2019-01-11 09:28 | Family Medicine Progress Note ---
Date of Service January 11, 2019 Assessment & Plan (1) Acute left NANCY ischemic stroke: Eleanor is 73-year-old female with a past medical history of poorly controlled type 2 diabetes mellitus (A1c 14.1% on admit), hypertension, hyperlipidemia who presented with 2 to 3 days of poverty of speech, somnolence, and word finding difficulty. She was been admitted for stroke like symptom evaluation. Acute left NANCY ischemic stroke She presented with poverty of speech, mild dysarthria, and increased fatigue and somnolence. CTH did not show any acute findings, follow-up MRIB showed multiple small acute infarcts within the left frontal lobe within the left anterior cerebral artery distribution. No mass effect or hemorrhage. Given her slow onset of symptoms over 2 to 3 days she was not a candidate for thrombolytic therapy She does not have any history of fibrillation, DVT, or septal defects. Cardiac echo ordered on admission for further evaluation. Her stroke is focal to the left NANCY and is in the setting of poorly controlled diabetes with an A1c of 14.1%, hypertension and a history of hyperlipidemia. Improved management of her diabetes as below will be critical to her house in the future Neurology consulted, recommended starting aspirin 81 mg daily - Converting from pravastatin 40mg to atorvastatin 20mg. While ideally she would have an atorvastatin 40-80mg dose from a stroke prevention standpoint her lipids are already low and in context of a recent stroke, age, and dementia have concerns about her cerebral bleeding risk. The atorvastatin 20mg represents an mild increase in lipid lowering potency compared to her pravastatin dose, and has some data to support a classification as moderate potency dose from a stroke prevention standpoint. Right upper quadrant abdominal pain, hyperbilirubinemia, concern for cholecystitis Tbili downtrending, RUQ pain improved today. No pain with meals/breakfast. USRUQ: Gallbladder distended to 12 cm, gallbladder is filled with shadowing gallstones and sludge. Wall is mildly thickened measuring up to 5 mm, common bile duct measures up to 0.6 cm in diameter, no cardoza's signs She has no leukocytosis Suspect chronic cholelithiasis without acute cholecystitis. Given that she is afebrile, doing clinically well, and her changes on ultrasound likely reflect a chronic process in context of a very high surgical risk with new stroke and uncontrolled diabetes will follow clinically with medical management for now. If she develops a fever or leukocytosis have a low threshold to start empiric antibiotics and consult surgery for further evaluation. Low-fat, diabetic diet. CBC, CMP, bilirubin daily - +Docusate for constipation Type 2 diabetes mellitus, uncontrolled, admission A1c 14.1% Previously on insulin detemir 22-25 units daily plus glipizidemetformin twice daily to admission Her ability to self care and manage medications is limited by mental status. Her family has reached out to office of aging for nurse assistance during the day and to help with medications, and her daughter will be staying with her in the evenings until she goes to sleep on discharge. She was previously managing her medications by herself.Do not feel based on her mental status that she is safe to be home alone even overnight. Pharmacy insulin consult placed - Required 17u aspart/24hr + 10&15 units of glargine with good glycemic control while admitted In context of her relatively low insulin resistance and insulin requirements while in the hospital diet suspect her increased A1c is in great deal dietary lifestyle compounded by not taking medications at home due to limitations of her cognitive status. On discussion it is likely that she was not using her insulin at home. Have concerns as well that given her dementia and difficulty with the regimen she is an extremely high risk for hypoglycemic episodes and insulin overdose. If she transfers to a subacute rehab or SNF she may be able to do well with oral therapy alone based on her low insulin resistance and good glycemic control observed in the hospital. 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 hep 5,000u subq Q12H CODE STATUS: Full code Disposition: Pending PT/OT eval today. Will likely require rehab. As noted above her daughter plans to stay with her in the evenings and get nursing assistance through office of aging for medications and daytime care; however, ongoing discussion whether near but not complete 24 hour assistance is appropriate. (2) Hyperbilirubinemia: Supervising Physician Co-Signing Physician Notes I personally examined the patient and verified all romero points of history and exam, discussed case, and agree with decision making with Dr Tomas. seems to be feeling better. did have lightheadedness with standing. seems more willing to go to rehab. Vitals noted, in general she is sitting up in bed no distress. She is not very talkative, she shows no facial droop. Breathing is unlabored no accessory muscle use good effort. Skin shows no rashes no pallor or icterus. CVAanterior cerebral artery distribution, likely intra-arterial thrombosis related predominantly to massively uncontrolled diabetes. Aspirin, secondary risk reduction. Statin. would benefit from rehab. Markedly uncontrolled type 2 [id number] of greater than 14, this is a significant contributor if not the main cause for her vascular disease leading to her stroke. easy to control sugars here. suspect total noncompliance + likely poor eating. may do OK w oral regimen w compliance and less carbs. continue current management here. Cholecystitismore than likely chronic cholecystitis. no acute sx. has had a little nausea off and on previously. should be followed Altered mental statusthe family brought her in for altered mental status that they were attributing to the stroke, but the stroke seems to be far more acute than an altered mental status pattern is been going on for about the last 6 months. B12 is quite low - replace and follow. may be elements of both low B12 and chronic dementia, ?hopefully replacing B12 will help w mental status dispo - for rehab once available. Subjective Eleanor sitting up in bed eating breakfast at time of visit. She is pleasant, but minimally conversive. Denies pain, shortness of breath, nausea, vomiting. She has not had a bowel movement in several days. She is tolerating breakfast well without right upper quadrant pain. Feels she is able to use her right arm and leg, does not notice any weakness or numbness today. Review of Systems Review of Systems: Pt is a poor historian Constitutional: Denies fever. Endorses weigh loss. Eyes: Endorses blurry vision ENT: Denies ear pain, sore throat, sinus pain Cardiovascular: Denies chest pain, chest pressure, palpitations, extremity swelling Respiratory: Denies shortness of breath, cough, sputum production, difficulty breathing Gastrointestinal: Denies abdominal pain today. Denies N/V/D. Endorses constipaiton. Genitourinary: Denies pain with urination, urinary urgency, urinary frequency Musculoskeletal: Denies weakness, muscle aches/pain, joint aches/pain Integumentary:Denies new rash, lesions, bruising Neurological: Denies headache. Endorses weakness on admit, denies weakness today. Physical Exam Physical Exam: General: A&O to name and place, not date. NAD. Cooperative. HEENT: Atraumatic, normocephalic. Pulm: CTAB A&P. -wheezes, -rales, -rhonchi. Symmetrical chest rise. No increase work of breathing. No respiratory distress. Cardiac: RRR, -mrg. Radial pulses intact and symmetrical. Abdominal: NT without murphys, rebound, or guarding. Nondistended, soft. BS present. Extremity: No distal extremity swelling, warmth, or asymmetry. Neurologic: A&Ox3. Poverty of speech with mild dysarthia. She answers questions appropriately. PERLAA No facial asymmetry. Eating breakfast using both arms equally. Elbow flexion/extension, wrist flexion/extension, finger flexion/extension, ankle dorsiflexion/plantarflexion symmetrical with intact strength against resistance. Results & Data Vital Signs (Past 12 Hours) Vital Signs Temp Pulse Resp BP Pulse Ox 01/11/19 07:22 36.6 C 63 19 112/68 95 01/11/19 03:50 36.3 C L 82 17 120/60 95 01/10/19 23:30 36.5 C 64 22 109/55 L 93 Resident Activity Tracking Resident Involvement: Resident Care Provided Care Provided: Adult Hospital Medicine
--- NOTE | 2019-01-11 11:16 | Pharmacy Report ---
Pharmacy Glycemic Short Note 2 - Date of Service January 11, 2019 - Glycemic Short BSG Results (Last 24 hours): 01/10/19 01/10/19 01/10/19 11:25 16:31 20:34 Glucose POC Glucose 150 H 133 H 132 H 01/11/19 01/11/19 05:16 07:50 Glucose 155 H POC Glucose 162 H Outpatient Anti-diabetic Regimen: * Non-adherence to the following medications noted per medication reconciliation * Levemir 22-25 units SC daily * Glipizide/metformin 2 tab po BID * A1c = 14.1 % on 01/10/19 The patient is currently receiving: * Basal insulin: Lantus 10 units x1 01/09 PM and 15 units x1 01/10 afternoon * Correctional Insulin: Novolog Correction per scale ACHS Goal Range: Low 100 mg/dL - High 140 mg/dL Correction Factor: 25 mg/dL/unit * Prandial insulin: Per carb ratio of 1 unit per 8 grams CHO consumed * Oral Agents: On hold Risk Factors for Insulin Resistance: * Diet: T2DM ASSESSMENT: * 73 yo F admitted with CVA on 01/09. Concern for cholecystitis per US - likely chronic with no surgical intervention required * Poorly controlled T2DM as outpatient per significantly elevated HbA1c of 14.1% - non-adherence noted. Patient will likely benefit from further education while inpatient r/e impact of poorly controlled T2DM/non-adherence outpatient it relates to significant stroke risk factor * BSG's ranged 129-150 mg/dL yesterday. However, increase to 162 mg/dL noted today with AM fasting BSG. Will increase Lantus. PLAN FOR INPATIENT GLYCEMIC CONTROL: * Hold outpatient oral diabetes medications * Basal insulin: Lantus 20 units SQ x1 now, then qPM based on BSG * 0 units for BSG less than 140 mg/dL * 5 units for BSG 140-180 mg/dL * 10 units for BSG greater than 180 mg/dL * Bolus insulin * NovoLog per scale ACHS or Q6hrs while NPO * Goal Range: Low 100 mg/dL - High 140 mg/dL * Correction Factor: 25 mg/dL/unit * Nutritional / Prandial insulin per carb ratio of 1 unit per 8 grams CHO consumed
[2019-01-11] MEDS: CYANOCOBALAMIN 1000 MCG/ML VIAL IM SCH (14:16)
[2019-01-11] MEDS: hydroCHLOROthiazide 25 MG TAB PO SCH (20:54)
[2019-01-11] MEDS: INSULIN GLARGINE SOLOSTAR 100 UNITS/ML 3 ML PEN SC SCH (20:54)
[2019-01-11] MEDS: DOCUSATE SODIUM 100 MG CAP PO SCH (20:58)
[2019-01-11] MEDS ORDERED: Nursing to Pharmacy Communication ONE (22:46)
[2019-01-12 08:05] LABS: Albumin Level 2.6 gm/dl (3.4-5.0); Bilirubin Direct 0.2 mg/dl (0-0.2); Calcium 8.6 mg/dl (8.5-10.1); Est GFR (African American) 78.8; Potassium 3.3 mmol/L (3.5-5.1)
[2019-01-12 08:08] LABS: Albumin Globulin Ratio 0.9 (0.9-2); Bilirubin,Total 1.1 mg/dl (0.2-1); Globulin 2.9 gm/dl (2.5-4.0); Total Protein 5.5 gm/dl (6.4-8.2)
[2019-01-12 08:10] LABS: Basophils # (auto) 0.01 K/uL (0-0.2); Basophils % (auto) 0.2 %; Eosinophils # (auto) 0.14 K/uL (0-0.5); Eosinophils % (auto) 2.5 %; Hemoglobin 15.4 g/dL (12.0-16.0); Immature Granulocytes # (auto) 0.02 K/uL (0.00-0.02); Immature Granulocytes % (auto) 0.4 %; Lymphocytes # (auto) 2.09 K/uL (1.2-3.4); Lymphocytes % (auto) 36.9 %; Mean Corpuscular Hgb Conc 34.2 g/dL (32-36); Mean Corpuscular Volume 84.9 fL (80-100); Mean Platelet Volume 10.1 fL (7.4-10.4); Monocytes # (auto) 0.25 K/uL (0.11-0.59); Monocytes % (auto) 4.4 %; Neutrophils # (auto) 3.16 K/uL (1.4-6.5); Neutrophils % (auto) 55.6 %; Platelet Count 154 K/uL (130-400); RDW Coefficient of Variation 13.8 % (11.5-14.5); RDW Standard Deviation 42.8 fL (36.4-46.3); White Blood Count 5.67 K/uL (4.8-10.8)
[2019-01-12] MEDS: OXYBUTYNIN CHLORIDE 5 MG TAB PO SCH ×2 (08:15→21:01)
[2019-01-12] MEDS: DOCUSATE SODIUM 100 MG CAP PO SCH ×2 (08:15→21:01)
[2019-01-12] MEDS: PANTOprazole 40 MG TAB PO SCH (08:16)
[2019-01-12] MEDS: PARoxetine HCl CONTROLLED REL 12.5 MG TABCR PO SCH (08:16)
[2019-01-12] MEDS: HEPARIN SOD 5,000 UNIT/0.5 ML VIAL SQ SCH ×2 (08:16→21:06)
[2019-01-12] MEDS: CYANOCOBALAMIN 1000 MCG/ML VIAL IM SCH (08:16)
[2019-01-12] MEDS: ATORVASTATIN 20 MG TAB PO SCH (08:16)
[2019-01-12] MEDS: ASPIRIN 81 MG ECTAB PO SCH (08:16)
[2019-01-12] MEDS: DOCUSATE SODIUM/SENNA 50/8.6MG TAB PO SCH (08:16)
[2019-01-12] MEDS: INSULIN ASPART 100 UNITS/ML 3 ML PEN SC SCH (08:16)
[2019-01-12] MEDS ORDERED: INSULIN GLARGINE SOLOSTAR 100 UNITS/ML 3 ML PEN SC SCH ×2 (09:00→21:00)
[2019-01-12] MEDS: POTASSIUM CHLORIDE 10 MEQ TABCR PO SCH ×2 (10:26→21:00)
[2019-01-12] MEDS: MAGNESIUM OXIDE 400 MG TAB PO SCH (10:26)
[2019-01-12] MEDS ORDERED: GLIPIZIDE METFORMIN PO SCH (10:30)
--- NOTE | 2019-01-12 10:45 | Pharmacy Report ---
Pharmacy Glycemic Sign Off Nt - Date of Service January 12, 2019 - Assessment & Plan ASSESSMENT: * Pharmacy was consulted by Dr Doshi on 01/09/19 for glycemic control and to write orders per [facility] inpatient glycemic control protocol. * Dr Tomas would like to take over on glycemic care. * Pharmacy is signing off of glycemic consult and will no longer be making adjustments to inpatient regimen. Please feel free to re-consult if needed. Thank you. DISCHARGE RECOMMENDATIONS: * A1c 14.1 % on 01/10/19 * Recommend patient trying XR formulation of metformin to help with nauseousness from metformin and discontinuing glipizide since patient is having hypoglycemia as outpatient. * Recommend starting Lantus 20 units SQ daily. * Recommending SMBG 4x/wk, especially when not feeling well.
--- NOTE | 2019-01-12 14:44 | Family Medicine Progress Note ---
Date of Service January 12, 2019 Assessment & Plan (1) Acute left NANCY ischemic stroke: Eleanor is 73-year-old female with a past medical history of poorly controlled type 2 diabetes mellitus (A1c 14.1% on admit), hypertension, hyperlipidemia who presented with 2 to 3 days of poverty of speech, somnolence, and word finding difficulty. She was been admitted for stroke like symptom evaluation. Acute left NANCY ischemic stroke She presented with poverty of speech, mild dysarthria, and increased fatigue and somnolence. CTH did not show any acute findings, follow-up MRIB showed multiple small acute infarcts within the left frontal lobe within the left anterior cerebral artery distribution. No mass effect or hemorrhage. Given her slow onset of symptoms over 2 to 3 days she was not a candidate for thrombolytic therapy She does not have any history of fibrillation, DVT, or septal defects. JORDAN showed normal LVS with hyperdnamic systolic function EF>70%, no wall motion abnormalities, severe concentric LVF. No increased RV pressure. Her stroke is focal to the left NANCY and is in the setting of poorly controlled diabetes with an A1c of 14.1%, hypertension and a history of hyperlipidemia. Improved management of her diabetes as below will be critical to her health in the future Neurology consulted, recommended starting aspirin 81 mg daily - Converted from pravastatin 40mg to atorvastatin 20mg. While ideally she would have an atorvastatin 40-80mg dose from a stroke prevention standpoint her lipids are already low and in context of a recent stroke, age, and dementia have concerns about her cerebral bleeding risk. The atorvastatin 20mg represents an mild increase in lipid lowering potency compared to her pravastatin dose, and has some data to support a classification as moderate potency dose from a stroke prevention standpoint. Right upper quadrant abdominal pain, hyperbilirubinemia, concern for cholecystitis Tbili continues to downtrend, RUQ improved. No pain with meals/breakfast. USRUQ: Gallbladder distended to 12 cm, gallbladder is filled with shadowing gallstones and sludge. Wall is mildly thickened measuring up to 5 mm, common bile duct measures up to 0.6 cm in diameter, no cardoza's signs She has no leukocytosis Suspect chronic cholelithiasis without acute cholecystitis. Given that she is afebrile, doing clinically well, and her changes on ultrasound likely reflect a chronic process in context of a very high surgical risk with new stroke and uncontrolled diabetes will follow clinically with medical management for now. If she develops a fever or leukocytosis have a low threshold to start empiric antibiotics and consult surgery for further evaluation. Low-fat, diabetic diet. CBC, CMP, bilirubin daily - +Docusate for constipation Type 2 diabetes mellitus, uncontrolled, admission A1c 14.1% Previously on insulin detemir 22-25 units daily plus glipizidemetformin twice daily to admission Her ability to self care and manage medications is limited by mental status. Her family has reached out to office of aging for nurse assistance during the day and to help with medications, and her daughter will be staying with her in the evenings until she goes to sleep on discharge. She was previously managing her medications by herself.Do not feel based on her mental status that she is safe to be home alone even overnight. Pharmacy insulin consult placed - Required 18u aspart/24hr + 20 units of glargine with good glycemic control while admitted In context of her relatively low insulin resistance and insulin requirements while in the hospital diet suspect her increased A1c is in great deal dietary lifestyle compounded by not taking medications at home due to limitations of her cognitive status. On discussion it is likely that she was not using her insulin at home and was eating mostly simple carbs and snack cakes. Have concerns as well that given her dementia and difficulty with the regimen she is an extremely high risk for hypoglycemic episodes and insulin overdose. Given her excellent glycemic control and low insulin resistance in hospital will trial how she does on oral therapy without insulin with a controlled diet as this would be ideal for her as an outpt if compliance could be maintained. LLE Pain - She had some transient LLE pain this morning. While her calf is not swollen, red, or tender have a low threshold for investigation given her stroke presentation and high risk. 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 hep 5,000u subq Q12H CODE STATUS: Full code (2) Diabetes: (3) Stroke-like symptoms: (4) Weakness: Supervising Physician Co-Signing Physician Notes I personally examined the patient and verified all romero points of history and exam, discussed case, and agree with decision making with Dr Tomas. More talkative. Ongoing left calf tenderness. Family present, extensive discussions and updated in the best my ability. They note that metformin gave her GI symptoms prior. Vitals noted, in general she is sitting up in bed no distress. She is not very talkative, she shows no facial droop. Breathing is unlabored no accessory muscle use good effort. Skin shows no rashes no pallor or icterus. Left calf tenderness however no erythema edema or cords CVAanterior cerebral artery distribution, likely intra-arterial thrombosis related predominantly to massively uncontrolled diabetes. Aspirin, secondary risk reduction. Statin. Is willing to go to rehab, awaiting approval. Discussed again that better diabetes control is the biggest issue for secondary risk reduction. Markedly uncontrolled type 2 [id number] of greater than 14, this is a significant contributor if not the main cause for her vascular disease leading to her stroke. Dr. Tomas unearthed that her medication compliance at home was near nothing, and that her diet at home was almost entirely simple/starchy/sugary carbs. This makes it quite realistic that she could do well on an oral regimen with significant diet changes, which the family seems to be willing to help her make. Cholecystitismore than likely chronic cholecystitis. no acute sx. close follow-up, outpatient follow-up, but no need for intervention at this time Altered mental statusthe family brought her in for altered mental status that they were attributing to the stroke, but the stroke seems to be far more acute than an altered mental status pattern is been going on for about the last 6 months. B12 is quite low - replace and follow. may be elements of both low B12 and chronic dementia, ?hopefully replacing B12 will help w mental status. Discussed this with family in depth today. dispo - for rehab once available. Tiburcio Webster is seen at bedside in the company of her family today. She is sitting up and eating breakfast without difficulty. She has had some aching in her left lower leg which resolved earlier this morning. Otherwise she feels unchanged from yesterday. She denies shortness of breath, confusion, increased weakness. Review of Systems Review of Systems: Pt is a poor historian Constitutional: Denies fever. Endorses weigh loss. Eyes: Endorses blurry vision ENT: Denies ear pain, sore throat, sinus pain Cardiovascular: Denies chest pain, chest pressure, palpitations, extremity swelling Respiratory: Denies shortness of breath, cough, sputum production, difficulty breathing Gastrointestinal: Denies abdominal pain today. Denies N/V/D. Endorses constipaiton. Genitourinary: Denies pain with urination, urinary urgency, urinary frequency Musculoskeletal: Denies weakness, joint aches/pain. Endorses L calf pain which has resolved. Integumentary:Denies new rash, lesions, bruising Neurological: Denies headache. Physical Exam Physical Exam: General: A&O to name and place, not date. NAD. Cooperative. HEENT: Atraumatic, normocephalic. Pulm: CTAB A&P. -wheezes, -rales, -rhonchi. Symmetrical chest rise. No increase work of breathing. No respiratory distress. Cardiac: RRR, -mrg. Radial pulses intact and symmetrical. Abdominal: NT without murphys, rebound, or guarding. Nondistended, soft. BS present. Extremity: No distal extremity swelling, warmth, or asymmetry. Neurologic: A&Ox3. Poverty of speech with mild dysarthia. She answers questions appropriately.PERLAA No facial asymmetry. Eating breakfast sitting up using both arms equally. Elbow flexion/extension, wrist flexion/extension, finger flexion/extension, ankle dorsiflexion/plantarflexion symmetrical with intact strength against resistance. Results & Data Vital Signs (Past 12 Hours) Vital Signs Temp Pulse Pulse Resp BP Pulse Ox 01/12/19 09:00 71 01/12/19 07:06 36.4 C L 65 20 118/72 90 01/12/19 03:46 36.6 C 64 20 131/64 94 Resident Activity Tracking Resident Involvement: Resident Care Provided Care Provided: Adult Hospital Medicine (1) Diabetes Diabetes mellitus complication status: with unspecified complications Diabetes mellitus detention insulin use: unspecified salvage determiner insulin use status Diabetes mellitus type: type 2 Qualified Code(s): E11.8 - Type 2 diabet es mellitus with unspecified complications
--- NOTE | 2019-01-12 16:24 | Ultrasound Report ---
US venous doppler LE LT CLINICAL HISTORY: Left leg pain COMPARISON STUDY: No previous studies for comparison. FINDINGS: Real-time and color flow Doppler imaging were performed. Flow was seen within the femoral, popliteal and calf veins with no intraluminal thrombus demonstrated. The saphenous vein is patent. IMPRESSION: No evidence of left lower extremity DVT. Electronically signed by: Ciro Kumar M.D. 01/12/2019 4:23 PM
[2019-01-12] MEDS ORDERED: METFORMIN HCL 500 MG TAB PO SCH (17:00)
[2019-01-12] MEDS: METFORMIN HCL 500 MG TAB PO SCH ×2 (17:18→17:28)
[2019-01-12] MEDS: glipiZIDE 5 MG TAB PO SCH (17:19)
--- NOTE | 2019-01-12 17:45 | Family Medicine Progress Note ---
Date of Service January 12, 2019 Subjective Please see separate documentation from the same date for actual clinical information. Today the EMR was changed to allow for in-EMR coding entry, and unfortunately residency documentation was on the older notes. This note was generated simply to allow entry of the proper codes, but the separate note/same date contains the actual clinical information. This should be a one-time issue, and I apologize for any confusion. Results & Data Vital Signs (Past 12 Hours) Vital Signs Temp Pulse Pulse Resp BP Pulse Ox 01/12/19 15:31 82 01/12/19 15:09 36.8 C 69 21 94/53 L 91 01/12/19 09:00 71 01/12/19 07:06 36.4 C L 65 20 118/72 90
[2019-01-12] MEDS: hydroCHLOROthiazide 25 MG TAB PO SCH (20:52)
[2019-01-13 07:00] LABS: Basophils # (auto) 0.01 K/uL (0-0.2); Basophils % (auto) 0.2 %; Hematocrit (blood only) 43.3 % (37-47); Hemoglobin 14.6 g/dL (12.0-16.0); Immature Granulocytes # (auto) 0.01 K/uL (0.00-0.02); Immature Granulocytes % (auto) 0.2 %; Lymphocytes # (auto) 2.16 K/uL (1.2-3.4); Lymphocytes % (auto) 43.8 %; Mean Corpuscular Hgb Conc 33.7 g/dL (32-36); Mean Corpuscular Volume 86.1 fL (80-100); Mean Platelet Volume 9.3 fL (7.4-10.4); Monocytes # (auto) 0.28 K/uL (0.11-0.59); Monocytes % (auto) 5.7 %; Neutrophils # (auto) 2.37 K/uL (1.4-6.5); Neutrophils % (auto) 48.1 %; Platelet Count 162 K/uL (130-400); RDW Coefficient of Variation 13.9 % (11.5-14.5); RDW Standard Deviation 43.5 fL (36.4-46.3); Red Blood Count 5.03 M/uL (4.2-5.4); White Blood Count 4.93 K/uL (4.8-10.8)
[2019-01-13 07:38] LABS: Albumin Level 2.6 gm/dl (3.4-5.0); BUN Creatinine Ratio 18.2 (10-20); Bilirubin Direct 0.2 mg/dl (0-0.2); Calcium 8.3 mg/dl (8.5-10.1); Creatinine Clr Calc Pharmacy 54.9 ml/min; Est GFR (African American) 75.5; Est GFR (Non-African American) 65.2; Potassium 3.3 mmol/L (3.5-5.1)
[2019-01-13 07:41] LABS: Albumin Globulin Ratio 0.9 (0.9-2); Bilirubin,Total 0.8 mg/dl (0.2-1); Total Protein 5.6 gm/dl (6.4-8.2)
[2019-01-13] MEDS: OXYBUTYNIN CHLORIDE 5 MG TAB PO SCH ×2 (08:54→21:30)
[2019-01-13] MEDS: ATORVASTATIN 20 MG TAB PO SCH (08:54)
[2019-01-13] MEDS: POTASSIUM CHLORIDE 10 MEQ TABCR PO SCH ×2 (08:54→21:29)
[2019-01-13] MEDS: DOCUSATE SODIUM 100 MG CAP PO SCH ×2 (08:54→21:30)
[2019-01-13] MEDS: ASPIRIN 81 MG ECTAB PO SCH (08:54)
[2019-01-13] MEDS: MAGNESIUM OXIDE 400 MG TAB PO SCH (08:54)
[2019-01-13] MEDS: glipiZIDE 5 MG TAB PO SCH ×2 (08:54→17:05)
[2019-01-13] MEDS: CYANOCOBALAMIN 1000 MCG/ML VIAL IM SCH (08:55)
[2019-01-13] MEDS: HEPARIN SOD 5,000 UNIT/0.5 ML VIAL SQ SCH ×2 (08:55→21:41)
[2019-01-13] MEDS: PANTOprazole 40 MG TAB PO SCH (08:55)
[2019-01-13] MEDS: LISINOPRIL 20 MG TAB PO SCH (08:55)
[2019-01-13] MEDS: DOCUSATE SODIUM/SENNA 50/8.6MG TAB PO SCH (08:55)
[2019-01-13] MEDS: PARoxetine HCl CONTROLLED REL 12.5 MG TABCR PO SCH (08:55)
--- NOTE | 2019-01-13 11:37 | Family Medicine Progress Note ---
Date of Service January 13, 2019 Assessment & Plan (1) Acute left NANCY ischemic stroke: Eleanor is 73-year-old female with a past medical history of poorly controlled type 2 diabetes mellitus (A1c 14.1% on admit), hypertension, hyperlipidemia who presented with 2 to 3 days of poverty of speech, somnolence, and word finding difficulty. She was been admitted for stroke like symptom evaluation. Acute left NANCY ischemic stroke She presented with poverty of speech, mild dysarthria, and increased fatigue and somnolence. CTH did not show any acute findings, follow-up MRIB showed multiple small acute infarcts within the left frontal lobe within the left anterior cerebral artery distribution. No mass effect or hemorrhage. Given her slow onset of symptoms over 2 to 3 days she was not a candidate for thrombolytic therapy She does not have any history of fibrillation, DVT, or septal defects. JORDAN showed normal LVS with hyperdnamic systolic function EF>70%, no wall motion abnormalities, severe concentric LVF. No increased RV pressure. Her stroke is focal to the left NANCY and is in the setting of poorly controlled diabetes with an A1c of 14.1%, hypertension and a history of hyperlipidemia. Improved management of her diabetes as below will be critical to her health in the future Neurology consulted, recommended starting aspirin 81 mg daily - Converted from pravastatin 40mg to atorvastatin 20mg. While ideally she would have an atorvastatin 40-80mg dose from a stroke prevention standpoint her lipids are already low and in context of a recent stroke, age, and dementia have concerns about her cerebral bleeding risk. The atorvastatin 20mg represents an mild increase in lipid lowering potency compared to her pravastatin dose, and has some data to support a classification as moderate potency dose from a stroke prevention standpoint. JACQUARD LOOM CARD CHANGER consult placed for concern for swallowing, may have some intrinsic muscle weakness related to her stroke Right upper quadrant abdominal pain, hyperbilirubinemia, concern for cholecystitis RUQ improved. No pain with meals/breakfast. USRUQ: Gallbladder distended to 12 cm, gallbladder is filled with shadowing gallstones and sludge. Wall is mildly thickened measuring up to 5 mm, common bile duct measures up to 0.6 cm in diameter, no cardoza's signs She has no leukocytosis Chronic cholelithiasis without acute cholecystitis. Given that she is afebrile, doing clinically well, and her changes on ultrasound likely reflect a chronic process in context of a very high surgical risk with new stroke and uncontrolled diabetes will follow clinically with medical management for now. If she develops a fever or leukocytosis have a low threshold to start empiric antibiotics and consult surgery for further evaluation. Low-fat, diabetic diet. AST/ALT/alk phos down trended, will discontinue CBC at this time, reassess if change in clinical condition. - +Docusate for constipation Type 2 diabetes mellitus, uncontrolled, admission A1c 14.1% Previously on insulin detemir 22-25 units daily plus glipizidemetformin twice daily to admission Her ability to self care and manage medications is limited by mental status. Her family has reached out to office of aging for nurse assistance during the day and to help with medications, and her daughter will be staying with her in the evenings until she goes to sleep on discharge. She was previously managing her medications by herself.Do not feel based on her mental status that she is safe to be home alone even overnight. Pharmacy insulin consult placed - Required 18u aspart/24hr + 20 units of glargine with good glycemic control while admitted In context of her relatively low insulin resistance and insulin requirements while in the hospital diet suspect her increased A1c is in great deal dietary lifestyle compounded by not taking medications at home due to limitations of her cognitive status. On discussion it is likely that she was not using her insulin at home and was eating mostly simple carbs and snack cakes. Have concerns as well that given her dementia and difficulty with the regimen she is an extremely high risk for hypoglycemic episodes and insulin overdose. Given her excellent gl ycemic control and low insulin resistance in hospital we trialed controlled diet with Januvia monotherapy (she does not tolerate metformin due to diarrhea). She had good glycemic control on monotherapy in the low 100s, and her morning fasting glucose was 99. This reinforces that she could be a monotherapy controlled diabetic, but lifestyle and dietary modifications are critical. LLE Pain - She had some transient LLE pain yesterday morning. - LLE venous doppler shows no DVT, pain improved today - Follow clinically DVT prophylaxis: Heparin 5000 subcu every 12 hours Disposition: Pending acceptance to rehab (2) Frequent falls: (3) Abnormal LFTs: Supervising Physician Co-Signing Physician Notes I personally examined the patient and verified all romero points of history and exam, discussed case, and agree with decision making with Dr Tomas. Main complaint today is that her throat hargrove from having taken pills. It seems that the potassium pills were what bothers her the most. Vitals noted, in general no distress. HEENT normocephalic atraumatic mucous members moist. Slightly more verbal than previous days but not quite as good as yesterday. No new focal neuro deficits. Breathing unlabored no accessory muscle use good effort. Skin shows no rashes no pallor or icterus. CVAanterior cerebral artery distribution, likely intra-arterial thrombosis related predominantly to massively uncontrolled diabetes. Aspirin, secondary risk reduction. Statin. Stable for rehab pending approval. Certainly her biggest risk factor for this was her uncontrolled diabetes. Markedly uncontrolled type 2 [id number] of greater than 14, this is a significant contributor if not the main cause for her vascular disease leading to her stroke. Seems to been almost entirely lifestyle and noncompliance related (likely made worse by her mental status)improved dramatically on hospi ginna diet, doing well on simply oral regimen alone. Once she is out of the hospital and more formulary choices are available, I would strongly consider a non-metformin insulin refrigerator repairman, given her intolerance to metformin, but her long-term risk of hypoglycemia once she is no longer in a supervised environment. Cholecystitismore than likely chronic cholecystitis. no acute sx. close follow-up, outpatient follow-up, but no need for intervention at this time. Altered mental statusthe family brought her in for altered mental status that they were attributing to the stroke, but the stroke seems to be far more acute than an altered mental status pattern is been going on for about the last 6 months. B12 is quite low - replace and follow. may be elements of both low B12 and chronic dementia, ?hopefully replacing B12 will help w mental status. Continue to aggressively replace B12. dispo - for rehab once available. Subjective Mother reports she feels okay this morning. She has had a little bit of aching in her legs, but overall feels it is not as bad as it was yesterday. She is not short of breath, has no chest pain, no chest pressure, and no difficulty breathing. She continues to be able to use both extremities relatively equally. She notes she was having a little bit of difficulty swallowing this morning, JACQUARD LOOM CARD CHANGER consult was discussed. Review of Systems Review of Systems: Pt is a poor historian Constitutional: Denies fever. Eyes: Endorses blurry vision ENT: Denies ear pain, sore throat, sinus pain Cardiovascular: Denies chest pain, chest pressure, palpitations, extremity swelling Respiratory: Denies shortness of breath, cough, sputum production, difficulty breathing Gastrointestinal: Denies abdominal pain today. Genitourinary: Denies pain with urination, urinary urgency, urinary frequency Musculoskeletal: Denies weakness, joint aches/pain. Denies calf pain. Integumentary:Denies new rash, lesions, bruising Neurological: Denies headache. Physical Exam Physical Exam: General: A&O to name and place, not date. NAD. Cooperative. HEENT: Atraumatic, normocephalic. Pulm: CTAB A&P. -wheezes, -rales, -rhonchi. Symmetrical chest rise. No increase work of breathing. No respiratory distress. Cardiac: RRR, -mrg. Radial pulses intact and symmetrical. Abdominal: NT Nondistended, soft. BS present. Extremity: No distal extremity swelling, warmth, or asymmetry. Neurologic: A&Ox3. Poverty of speech with mild dysarthia. She answers questions appropriately.PERLAA No facial asymmetry. Eating breakfast sitting up using both arms equally. Elbow flexion/extension, wrist flexion/extension, finger flexion/extension, ankle dorsiflexion/plantarflexion symmetrical with intact strength against resistance. Results & Data Vital Signs (Past 12 Hours) Vital Signs Temp Pulse Pulse Resp BP BP Pulse Ox 01/13/19 10:00 65 01/13/19 08:00 36.4 C L 64 18 124/75 96 01/13/19 05:04 36.3 C L 81 19 115/94 95 01/13/19 01:33 60 01/12/19 23:53 36.8 C 69 20 118/66 91 Resident Activity Tracking Resident Involvement: Resident Care Provided Care Provided: Adult [facility]
[2019-01-13] MEDS: hydroCHLOROthiazide 25 MG TAB PO SCH (21:29)
[2019-01-14 06:07] LABS: Hematocrit (blood only) 41.3 % (37-47); Hemoglobin 13.9 g/dL (12.0-16.0); Mean Corpuscular Hgb Conc 33.7 g/dL (32-36); Mean Corpuscular Volume 86.6 fL (80-100); Mean Platelet Volume 9.6 fL (7.4-10.4); Platelet Count 162 K/uL (130-400); RDW Coefficient of Variation 13.9 % (11.5-14.5); RDW Standard Deviation 43.7 fL (36.4-46.3); Red Blood Count 4.77 M/uL (4.2-5.4); White Blood Count 5.38 K/uL (4.8-10.8)
[2019-01-14 07:33] LABS: Basophils # (auto) 0.01 K/uL (0-0.2); Basophils % (auto) 0.2 %; Eosinophils # (auto) 0.08 K/uL (0-0.5); Eosinophils % (auto) 1.5 %; Immature Granulocytes # (auto) 0.01 K/uL (0.00-0.02); Immature Granulocytes % (auto) 0.2 %; Lymphocytes # (auto) 2.95 K/uL (1.2-3.4); Lymphocytes % (auto) 54.8 %; Monocytes # (auto) 0.28 K/uL (0.11-0.59); Monocytes % (auto) 5.2 %; Neutrophils # (auto) 2.05 K/uL (1.4-6.5); Neutrophils % (auto) 38.1 %
[2019-01-14] MEDS ORDERED: POTASSIUM CHLORIDE 10 MEQ TABCR PO STA (07:36)
[2019-01-14] MEDS: ASPIRIN 81 MG ECTAB PO SCH (08:44)
[2019-01-14] MEDS: MAGNESIUM OXIDE 400 MG TAB PO SCH (08:44)
[2019-01-14] MEDS: glipiZIDE 5 MG TAB PO SCH ×2 (08:44→17:17)
[2019-01-14] MEDS: OXYBUTYNIN CHLORIDE 5 MG TAB PO SCH (08:44)
[2019-01-14] MEDS: CYANOCOBALAMIN 1000 MCG/ML VIAL IM SCH (08:44)
[2019-01-14] MEDS: POTASSIUM CHLORIDE 10 MEQ TABCR PO SCH (08:44)
[2019-01-14] MEDS: PANTOprazole 40 MG TAB PO SCH (08:44)
[2019-01-14] MEDS: PARoxetine HCl CONTROLLED REL 12.5 MG TABCR PO SCH (08:44)
[2019-01-14] MEDS: ATORVASTATIN 20 MG TAB PO SCH (08:44)
[2019-01-14] MEDS: LISINOPRIL 20 MG TAB PO SCH (08:44)
[2019-01-14] MEDS: DOCUSATE SODIUM 100 MG CAP PO SCH (08:44)
[2019-01-14] MEDS: DOCUSATE SODIUM/SENNA 50/8.6MG TAB PO SCH (08:44)
[2019-01-14] MEDS: HEPARIN SOD 5,000 UNIT/0.5 ML VIAL SQ SCH (08:45)
[2019-01-14] MEDS ORDERED: POTASSIUM CHLORIDE 20 MEQ/15 ML UDC PO SCH (09:30)
--- NOTE | 2019-01-14 13:32 | Discharge Summary ---
Date of Service January 14, 2019 Admission HPI Per Admitting Provider Patient is a 73yo C female with history of poorly controlled DM, HTN, HLP presenting with stroke-like symptoms. Patient began to have poor memory and confusion a few months ago. These symptoms progressively worsened oer the last week with acute worsening over the last 2-3 days. Family reports poor appetite, increased somnolence, decreased alertness and verbal response as well as weakness in the left leg and left arm, inability to walk, frequent falls, difficulty chewing, slurred speech and word finding issues. Patient denies headache or visual loss but has had some blurry vision of late. +nausea occasionally. Otherwise denies chest pain, palpitations, SOB, abdominal pain, vomiting, diarrhea, constipation. Family reports that she is not checking her blood sugars or taking her medications. Last A1C > 11 ER Course: NSS Principal Diagnosis nancy stroke Discharge Exam Constitutional WD/WN, vitals as above Eyes PERRL, conjunctivae normal, anicteric sclerae ENMT external ear and nose normal, oropharynx normal Respiratory normal respiratory effort, lungs clear to auscultation Cardiovascular RRR, no murmur, no edema Gastrointestinal (Abdomen) normal bowel sounds, soft, nontender, no hepatosplenomegaly Skin no rashes, warm and dry Neurologic A&Ox3. Poverty of speech with mild dysarthia. She answers questions appropriately.PERLAA No facial asymmetry. Discharge Data Allergies Allergy/AdvReac Type Severity Reaction Status Date / Time ciprofloxacin [From Cipro] Allergy Unknown Verified 01/09/19 17:48 Penicillins Allergy Unknown Verified 01/09/19 17:48 SURGICAL TAPE Allergy Unknown Uncoded 01/09/19 17:48 Consultations 01/09/19 18:05 ED Decision to Admit Stat 01/09/19 21:07 Consult Case Management - Discharge Planning Routine Consult Neurology Routine Ordered Studies 01/09/19 16:27 CT head/brain wo con Stat 01/09/19 21:07 CT angio head w con Routine CT angio neck with con Routine MR brain wo con Routine 01/10/19 07:39 US liver Routine 01/12/19 11:36 US venous doppler LE LT Routine Hospital Course (1) Acute left NANCY ischemic stroke: Eleanor is 73-year-old female with a past medical history of poorly controlled type 2 diabetes mellitus (A1c 14.1% on admit), hypertension, hyperlipidemia who presented with 2 to 3 days of poverty of speech, somnolence, and word finding difficulty. She was admitted for stroke like symptom evaluation. The following is the medical management during her stay here: Acute left NANCY ischemic stroke Pt presented with poverty of speech, mild dysarthria, and increased fatigue and somnolence. CTHead did not show any acute findings, follow-up MRIB showed multiple small acute infarcts within the left frontal lobe within the left anterior cerebral artery distribution. No mass effect or hemorrhage. Given her slow onset of symptoms over 2 to 3 days she was not a candidate for thrombolytic therapy. Pt did not have any history of fibrillation, DVT, or septal defects. JORDAN showed normal LVS with hyperdynamic systolic function EF>70%, no wall motion abnormalities, severe concentric LVF. No increased RV pressure. Her stroke was focal to the left NANCY and is in the setting of poorly controlled diabetes with an A1c of 14.1%, hypertension and a history of hyperlipidemia. Improved management of her diabetes as below will be critical to her health in the future. During her stay here, Neurology was consulted and recommended starting aspirin 81 mg daily. Additionally, we converted from pravastatin 40mg to atorvastatin 20mg. While ideally she would have an atorvastatin 40-80mg dose from a stroke prevention standpoint her lipids are already low and in context of a recent stroke, age, and dementia have concerns about her cerebral bleeding risk. The atorvastatin 20mg represents a mild increase in lipid lowering potency compared to her pravastatin dose, and has some data to support a classification as moderate potency dose from a stroke prevention standpoint. We placed an CARROTER consult for concern for swallowing 2/2 maybe having some intrinsic muscle weakness related to her stroke. Her swallow eval went fine and CARROTER made recs for soft cut extra moist food, meds in a carrier, and continued CARROTER services f/u on d/c. Type 2 diabetes mellitus, uncontrolled, admission A1c 14.1% Pt was previously on insulin detemir 22-25 units daily plus glipizidemetformin twice daily. Pt's ability to self care and manage medications was limited by mental status. She was previously managing her medications by herself, which was not safe. Eleanor required 18u aspart/24hr + 20 units of glargine with good glyc emic control while admitted. In context of her relatively low insulin resistance and insulin requirements while in the hospital we suspected her increased A1c was in great deal dietary lifestyle compounded by not taking medications at home due to limitations of her cognitive status. On discussion it is likely that she was not using her insulin at home and was eating mostly simple carbs and snack cakes. Have concerns as well that given her dementia and difficulty with the regimen she is an extremely high risk for hypoglycemic episodes and insulin overdose. Given her excellent glycemic control and low insulin resistance in hospital we trialed controlled diet with Januvia monotherapy (she does not tolerate metformin due to diarrhea). She had good glycemic control on monotherapy in the low 100s. This reinforces that she could be a monotherapy controlled diabetic, but lifestyle and dietary modifications are critical. Monotherapy can be a consideration in the future. On d/c, pt is going home on metformin ER 1000 mg daily and will cont home Levemir as before. Right upper quadrant abdominal pain, hyperbilirubinemia, concern for cholecystitis PT had some complaints of this on presentation. USRUQ: Gallbladder distended to 12 cm, gallbladder is filled with shadowing gallstones and sludge. Wall is mildly thickened measuring up to 5 mm, common bile duct measures up to 0.6 cm in diameter, no cardoza's signs. Later in stay, pt's RUQ was improved and she had no pain with meals/breakfast. She had no leukocytosis. Given that she was afebrile, was doing clinically well, her changes on ultrasound likely reflect a chronic cholelithiasis without acute cholecystitis. In context of a very high surgical risk with new stroke and uncontrolled diabetes we followed clinically with medical management. Recommend continuing a low-fat, diabetic diet. Her AST/ALT were normal downtrending and normal at time of d/c. DVT prophylaxis was given with Heparin 5000 subcu q12h. Pt has been accepted to [facility] on d/c. Pt had no other acute concerns or complaints at time of d/c. Total Time Total Time Spent Total Time Spent (In Minutes): 35 min Discharge Plan Discharge Items Patient Disposition: Transfer Group Home Fac Reason For Visit: STROKE-LIKE SYMPTOMS Discharge Diagnosis: Acute L NANCY Ischemic Stroke Discharge Goals: Improve disease control Activity: Per 'Additional Instructions' section Non-emergency contact: Primary Care Provider Call non-emergency contact if: you have any medication questions and your symptoms worsen Follow-up/Referrals: Daniela Neves, [Primary Care Provider] - Diet: Carb Consistent or DM2 Addtl Provider Instructions: You were admitted and found to have a stroke in a part of your brain that was seen on MRI. Please follow the below instructions on discharge: -You will continue aspirin 81 mg daily along with Atorvastatin 20 mg daily. -You will continue home Levemir for diabetes control. You will also start Metformin ER daily as well. This extended release version is better tolerated. -Please see your PCP within one week of discharge from [facility] -Continue eating soft cut extra moist diet. This was speech therapy's recommendation Prescriptions: New metformin 1,000 mg tablet extended release 24hr 1,000 mg PO DAILY Qty: 30 RF: 0 atorvastatin 20 mg tablet 20 mg PO DAILY Qty: 30 RF: 0 aspirin [Aspir-81] 81 mg tablet,delayed release (DR/EC) 81 mg PO DAILY Qty: 30 RF: 0 Continued lisinopril 20 mg Tablet 20 mg PO DAILY RF: 0 esomeprazole magnesium [Nexium] 40 mg Capsule,Delayed Release(Dr/Ec) 40 mg PO DAILY RF: 0 hydrochlorothiazide 25 mg tablet 25 mg PO HS RF: 0 furosemide [Lasix] 20 mg Tablet 20 mg PO DAILY PRN (Reason: SWELLING) RF: 0 oxybutynin chloride 5 mg tablet 5 mg PO BID RF: 0 paroxetine HCl [Paxil CR] 37.5 mg tablet extended release 24 hr 37.5 mg PO DAILY RF: 0 Levemir FlexTouch U-100 Insuln 100 unit/mL (3 mL) insulin pen 22 - 25 unit subcut DAILY RF: 0 Discontinued pravastatin [Pravachol] 40 mg tablet 40 mg PO DAILY RF: 0 glipizide-metformin 5-500 mg Tablet 2 tab PO BID RF: 0 Stand-Alone Forms: [facility] Discharge Orders: Discharge Order (Routine); Ordered 01/14/19 Ordered By: Benji Montana Skilled Items Patient informed of condition?: Yes DNR: No Discharge Level of Care: Acute rehab Communicable Disease: No Discharge Prognosis: Stable Admission Data Admit Date/Time: 01/09/19 19:32 Attending Provider: Shantelle Welch Admit Provider: Penelope Rossi Primary Care Provider: Daniela Neves Other Providers: Penelope Rossi ; Alfonso Langford ; Vern Muniz III ; Anne Cast ; Radha Mercado ; Jc Castillo Service: Telemetry Medical Other Interventions: Discharge Summary Assessment (RN) Last Done: 01/14/19 17:18 DC Date/Time DO NOT enter until pt leaves facility: 01/14/19 18:15 Supervising Physician Co-Signing Physician Notes Resident Physician Supervision Note: I independently interviewed and examined the patient and verified the romero history and physical, reviewed labs and image studies, discussed the case with the resident Dr. Montana and agree with the findings and care plan. Time spent in discharge 35 min Resident Activity Tracking Resident Involvement: Resident Care Provided Care Provided: Adult Hospital Medicine
[2019-01-14] MEDS ORDERED: STROKE PATIENT DISCHARGE STA (14:40)
== END 2019-01-14 18:15 | DRG 65 ==
LOC: ED 15:59 → SUATTDRO 19:32 → 2N 19:32

== ENCOUNTER 2019-10-01 21:27 | Inpatient (IN) ==
[2019-10-02] MEDS ORDERED: DEXTROSE 50% 50 ML SYRINGE IV PRN (01:29)
[2019-10-02] MEDS ORDERED: GLUCAGON FOR INJ 1 MG VIAL SQ PRN (01:29)
[2019-10-02] MEDS ORDERED: CARBOHYDRATES FOR HYPOGLYCEMIA PO PRN (01:29)
[2019-10-02] MEDS ORDERED: ONDANSETRON INJ 2 MG/ML 2 ML VIAL IV PRN ×2 (01:29→15:45)
[2019-10-02] MEDS ORDERED: GLUCOSE 40% GEL 15 GM TUBE PO PRN (01:29)
[2019-10-02] MEDS ORDERED: GLUCOSE 10 TABS/TUBE PO PRN (01:29)
[2019-10-02] MEDS ORDERED: NALOXONE HCL 0.4 MG/1 ML VIAL/CARP IV PRN ×2 (01:35→18:30)
[2019-10-02] MEDS ORDERED: bisacodyL 10 MG SUPP PR PRN (01:35)
[2019-10-02] MEDS ORDERED: MAGNESIUM HYDROXIDE SUSP 30 ML UDC PO PRN (01:35)
[2019-10-02] MEDS ORDERED: Nursing to Pharmacy Communication ONE (01:50)
--- NOTE | 2019-10-02 01:51 | History & Physical Report ---
Date of Service October 02, 2019 Assessment & Plan (1) Closed subcapital fracture of left femur: Closed subcapital fracture of left femur- Status post mechanical fall. Geriatric hip fracture protocol N.p.o. status IV fluids Acetaminophen 650 mg p.o. every 6 hours PRN mild pain or temperature. Oxycodone 5 mg p.o. every 4 hours PRN moderate pain. Dilaudid 0.2 mg IV every 3 hours as needed severe pain Ordered routine laboratories: CBC with differential, chemistry profile, EKG and chest x-ray. Consult Dr. Bergman from orthopedic surgery. Present on Admission?: Yes (2) Urinary incontinence: Mcclure catheter has been placed Present on Admission?: Yes (3) Acute left NANCY ischemic stroke: No new findings Present on Admission?: Yes (4) Depression: Paroxetine extended release 37.5 mg daily Present on Admission?: Yes (5) Hyperlipidemia: Atorvastatin 20 mg p.o. daily Present on Admission?: Yes (6) Hypertension: Hold aspirin, lisinopril and furosemide. Present on Admission?: Yes (7) Diabetes: Hold Levemir 25 units subcu at bedtime tonight, as due to late admission, it is well past her usual time administration. Placed on Accu-Cheks before meals and at bedtime with NovoLog coverage per scale. Present on Admission?: Yes (8) Chronic venous insufficiency: Hold furosemide for now. Present on Admission?: Yes History of Present Illness Chief Complaint: The patient initially presented to the [facility] emergency department after sustaining severe left hip pain after a fall backwards as she was reaching for a handle. Primary Care Provider: Daniela Neves DO The patient is a 74-year-old female with a past medical history including chronic venous insufficiency, urinary incontinence, B12 deficiency, hyperbilirubinemia, acute left NANCY ischemic stroke, depression, hyperlipidemia, hypertension and diabetes. She reports that she was reaching for a handle, lost control and could not find things stabilize her cell phone, and fell backwards and landed on her left hip, developing immediate pain. Work-up at the emergency department at [facility] included x-rays which showed a left subcapital femoral fracture, and she was transferred to [facility] for further treatment. Allergies Allergy/AdvReac Type Severity Reaction Status Date / Time ciprofloxacin [From Cipro] Allergy Unknown Verified 06/24/19 16:33 Penicillins Allergy Unknown Verified 06/24/19 16:33 SURGICAL TAPE Allergy Unknown Uncoded 06/24/19 16:33 Home Medications Home Medications Medication Instructions Recorded Confirmed Type nystatin 100,000 unit/gram topical 1 appln TOP BID #60 gm 03/19/19 10/02/19 Rx powder furosemide 20 mg tablet See Rx Instructions .ROUTE 05/22/19 10/02/19 Rx .COMPLEX #30 tablet atorvastatin 20 mg tablet 20 mg PO DAILY #90 tab 07/23/19 10/02/19 Rx metformin 500 mg tablet 500 mg PO BID #180 tab 07/23/19 10/02/19 Rx aspirin 81 mg tablet,delayed 81 mg PO DAILY #90 tab 07/24/19 10/02/19 Rx release fexofenadine 180 mg tablet 180 mg PO DAILY #90 tab 07/24/19 10/02/19 Rx lisinopril 20 mg tablet 20 mg PO DAILY #90 tab 07/24/19 10/02/19 Rx oxybutynin chloride 5 mg tablet 5 mg PO BID #180 tab 07/24/19 10/02/19 Rx paroxetine HCl 37.5 mg 37.5 mg PO DAILY #90 tab 07/24/19 10/02/19 Rx tablet,extended release 24 hr insulin detemir U-100 [Levemir 25 units SUBCUT HS 10/02/19 10/02/19 History FlexTouch U-100 Insuln] mecobalamin (vitamin B12) 1,000 mcg PO DAILY 10/02/19 10/02/19 History Past Med/Surg History Social History Preferred Language: Bulgarian Communication Ability: Effective Visual Impairment: Partially Limited Hearing Ability: Normal Pond Supervisor Required: No Beliefs That Will Affect Care: Faith Faith Beliefs: Buddhism marital status: / Current Living Situation: Alone current occupational status: retired Feels Safe at Home: Yes Safety Concerns: Feels Safe At This Time Smoking Status: Never smoker Second Hand Exposure: Yes ; Hx Alcohol Use: No Hx Substance Use: No Dental Care, Regularly: No Physical Activity Frequency: Does not Exercise Seatbelt Use: always Review of Systems Review of Systems: The patient denies chest pain, palpitations, shortness of breath, dyspnea on exertion, cough, sore throat, fevers, chills, sweats, nausea, vomiting, diarrhea , constipation, abdominal pain, pelvic pain, blood in urine or stool, dysuria, urinary frequency or urgency, loss of consciousness, rash, abnormal bruising or bleeding, focal weakness, numbness or tingling in arms or legs, generalized arthralgias or myalgias, back or neck pain, or night sweats. The review of systems is otherwise negative other than for that already noted above, and at least 10 systems have been reviewed. Physical Exam Physical Exam: The patient is awake, alert and oriented 3, well developed and well nourished, normocephalic and atraumatic, lying in bed and in no acute distress. HEENT--PERRL, EOMI, mucous membranes and oropharynx dry. Neck--supple. No JVD. No bruits. Thyroid normal, trachea midline, no adenopathy. Heart--normal S1 and S2. No murmurs, rubs or gallops. Lungs--clear bilaterally, no respiratory distress, no accessory muscle use. Abdomen--normal bowel sounds and soft. Nontender. Nondistended. Obese. Extremities--no cyanosis or clubbing. No edema. Dermatologic--normal skin turgor, normal color, no abnormal lymph nodes, no rash. Neurologic--cranial nerves II through XII grossly intact. Rheumatologic--range of motion of left hip limited due to pain Psychiatric--normal affect. Results & Data Vital Signs (Past 12 Hours) Vital Signs Temp Pulse Resp BP Pulse Ox 10/01/19 23:55 97.9 F 77 18 161/84 H 97 Laboratory Results Laboratory Results POC Glucose 248 mg/dl (70-99) H 10/02/19 00:43 Blood Type O Negative 10/02/19 01:47 Antibody Screen NEGATIVE 10/02/19 01:47 Code Status & VTE Plan Code Status Full code VTE Prophylaxis Plan VTE Prophylaxis will be ordered: Yes PG Care Time/CCT Total # of Minutes Spent Total Time Spent with Patient: Total time spent is greater than 50% in coordination of care (as documented) at patient's floor/unit and/or counseling patient: Coding Level of Care Code 79039 Initial Inpt Care Lvl 3 Diagnoses Closed subcapital fracture of left femur S72.012A Urinary incontinence R32 Acute left NANCY ischemic stroke I63.522 Depression F32.9 Hyperlipidemia E78.5 Hyperlipidemia type: unspecified Hypertension I10 Hypertension type: essential hypertension Diabetes E11.8 Diabetes mellitus type: type 2 Diabetes mellitus usp insulin use: unspecified usp insulin use status Diabetes mellitus complication status: with unspecified complications Chronic venous insufficiency I87.2 (1) Hyperlipidemia Hyperlipidemia type: unspecified Qualified Code(s): E78.5 - Hyperlipidemia, unspecified (2) Hypertension Hypertension type: essential hypertension Qualified Code(s): I10 - Essential (primary) hypertension (3) Diabetes Diabetes mellitus type: type 2 Diabetes mellitus terminologist insulin use: unspecified terminologist insulin use status Diabetes mellitus complication status: with unspecified complications Qualified Code(s): E11.8 - Type 2 diabetes mellitus with unspecified complications
[2019-10-02] MEDS: NSS + 20MEQ KCL 20 MEQ/1,000 ML BAG IV SCH ×3 (02:12→19:56)
[2019-10-02] MEDS: HYDROmorphone INJ 0.5 MG/0.5 ML SYR IV PRN ×4 (02:12→14:25)
[2019-10-02] MEDS: INSULIN ASPART 100 UNITS/ML 3 ML PEN SC SCH ×7 (02:32→23:56)
[2019-10-02 06:42] LABS: Estimated Average Glucose 226 mg/dl; Hemoglobin A1C 9.5 % (4.5-5.6)
--- NOTE | 2019-10-02 07:34 | XRay Report ---
XR chest 1V portable HISTORY: pre-op COMPARISON: Chest 01/09/2019. FINDINGS: Rotated study. No pneumothorax. No pleural effusions. The heart is mildly enlarged. There i s mild central pulmonary vascular congestion without overt edema. No new focal lung consolidations to suggest pneumonia. Right hilar prominence may be due to the rotated study. IMPRESSION: 1. Rotated study. This may account for the right hilar prominence. 2. Mild cardiomegaly with mild central pulmonary vascular congestion. ACT 112: Negative or not required by law. Electronically signed by: Chino Bryant M.D. 10/02/2019 7:33 AM
[2019-10-02 07:49] LABS: Basophils # (auto) 0.02 K/uL (0-0.2); Basophils % (auto) 0.3 %; Eosinophils # (auto) 0.32 K/uL (0-0.5); Eosinophils % (auto) 4.7 %; Hematocrit (blood only) 37.4 % (37-47); Hemoglobin 12.4 g/dL (12.0-16.0); Immature Granulocytes # (auto) 0.01 K/uL (0.00-0.02); Immature Granulocytes % (auto) 0.1 %; Lymphocytes # (auto) 2.09 K/uL (1.2-3.4); Lymphocytes % (auto) 30.6 %; Mean Corpuscular Hemoglobin 27.3 pg (25-34); Mean Corpuscular Hgb Conc 33.2 g/dL (32-36); Mean Corpuscular Volume 82.2 fL (80-100); Mean Platelet Volume 8.9 fL (7.4-10.4); Monocytes # (auto) 0.36 K/uL (0.11-0.59); Monocytes % (auto) 5.3 %; Neutrophils # (auto) 4.04 K/uL (1.4-6.5); Platelet Count 171 K/uL (130-400); RDW Coefficient of Variation 14.4 % (11.5-14.5); RDW Standard Deviation 42.8 fL (36.4-46.3); Red Blood Count 4.55 M/uL (4.2-5.4); White Blood Count 6.84 K/uL (4.8-10.8)
[2019-10-02 08:17] LABS: BUN Creatinine Ratio 25.8 (10-20); Calcium 8.9 mg/dl (8.5-10.1); Creatinine Clr Calc Pharmacy 55.4 ml/min; Est GFR (Non-African American) 64.7; Phosphorus 3.6 mg/dl (2.5-4.9); Potassium 3.9 mmol/L (3.5-5.1)
[2019-10-02 08:57] LABS: Partial Thromboplastin Ratio 1.1; Partial Thromboplastin Time 29.6 Seconds (21.0-31.0); Prothrombin Time 10.6 Seconds (9.0-12.0)
--- NOTE | 2019-10-02 09:07 | Hospitalist Progress Note ---
Date of Service October 02, 2019 Assessment & Plan (1) Closed subcapital fracture of left femur: Closed subcapital fracture of left femur- Status post mechanical fall. Geriatric hip fracture protocol N.p.o. status IV fluids Acetaminophen 650 mg p.o. every 6 hours PRN mild pain or temperature. Oxycodone 5 mg p.o. every 4 hours PRN moderate pain. Dilaudid 0.2 mg IV every 3 hours as needed severe pain Consulted Dr. Bergman from orthopedic surgery. Patient does not have a cardiac history or heart failure. She has reasonable exercise tolerance and can get up two flights of stairs. Never has chest pain. No pulmonary history although she was a heavy smoker in the past but quit thirty years ago. She is an uncontrolled diabetic and has a history of CVA putting her RCRI at 10.1%. Her electrolytes are wnl. Her cxr showed mild cardiomegaly with mild central pulmonary vascular congestion. Will hold off on giving diuretics for now but will need to watch fluid balance perioperatively. EKG showed SR with occasional PVCs. Last Echo was in December showing EF 70% with normal left ventricular size, now WMA and moderate to severe left ventricular hypertrophy. Patient does have moderate/high risk to proceed with surgery however given that usually she is ambulatory and able to get around her house on her own the benefits of surgery likely outweigh the risks of not performing it. Risks and benefits of surgery vs not doing surgery discussed with patient and her daughter and they verbalized understanding and will proceed with surgery. Will send for stat dopplers to rule out DVT given her complaints of calf pain and swelling. Per her daughter is fairly sedentary at home (2) Urinary incontinence: Mcclure catheter has been placed (3) Acute left NANCY ischemic stroke: No new findings (4) Depression: Continue home Paroxetine extended release 37.5 mg daily (5) Hyperlipidemia: Atorvastatin 20 mg p.o. daily (6) Hypertension: Hold aspirin, lisinopril and furosemide. (7) Diabetes: BSGs ac & hs, ss, lantus A1c 9.5 Pharmacy glycemic consult (8) Chronic venous insufficiency: Hold furosemide for now. Admission and Anticipated Discharge Date Admission Date: October 02, 2019 Subjective Ms. Yoo is having some pain at her left hip and calf as well as edema. She is not sob or coughing, no chest pain. Her daughters are beside. ROS Constitutional: no chills, aches, sweats or fever Respiratory: no sob,cough, sputum, or wheezing Cardiac: no chest pain, palpitations, edema, orthopnea or lightheadedness GI: no abdominal pain, nausea, vomiting, diarrhea or constipation : no dysuria or hesitancy Extremities: no joint pain or weakness Skin: no rash All other systems reviewed and negative Physical Exam Physical Exam: General: no distress Eyes: normal inspection, PERLL Respiratory: chest non tender, clear to auscultation, normal breath sounds, no respiratory distress, no accessory muscle use Cardiac: regular rate and rhythm, no rub or gallop, no murmur, bilat lower extremity edema GI/: active bowel sounds, no abd pain or tenderness, soft, non distended Extremities: normal range of motion, normal strength, non tender Neuro/Psych: alert and oriented x 3, normal mood and affect Skin: normal color, dry Results & Data ([facility]) Vital Signs (Past 12 Hours) Vital Signs Temp Pulse Pulse Resp BP Pulse Ox 10/02/19 07:25 36.6 C 71 16 125/70 97 10/01/19 23:55 36.6 C 77 18 161/84 H 97 PG Care Time/CCT Total # of Minutes Spent Total Time Spent with Patient: Total time spent is greater than 50% in coordination of care (as documented) at patient's floor/unit and/or counseling patient: Coding Level of Care Code None Diagnoses Closed subcapital fracture of left femur S72.012A Urinary incontinence R32 Acute left NANCY ischemic stroke I63.522 Depression F32.9 Hyperlipidemia E78.5 Hyperlipidemia type: unspecified Hypertension I10 Hypertension type: essential hypertension Diabetes E11.8 Diabetes mellitus complication status: with unspecified complications Diabetes mellitus prison insulin use: unspecified prison insulin use status Diabetes mellitus type: type 2 Chronic venous insufficiency I87.2 (1) Diabetes Diabetes mellitus complication status: with unspecified complications Diabetes mellitus intermediate designer insulin use: unspecified intermediate designer insulin use status Diabetes mellitus type: type 2 Qualified Code(s): E11.8 - Type 2 diabetes mellitus with unspecified complications (2) Hyperlipidemia Hyperlipidemia type: unspecified Qualified Code(s): E78.5 - Hyperlipidemia, unspecified (3) Hypertension Hypertension type: essential hypertension Qualified Code(s): I10 - Essential (primary) hypertension
[2019-10-02] MEDS ORDERED: PHARMACY GLYCEMIC MGMT CONSULT PRN (09:21)
[2019-10-02] MEDS ORDERED: INSULIN DETEMIR FLEXPEN/FLEX TOUCH 100 UNITS/ML 3ML SC ONE ×2 (09:30→21:00)
--- NOTE | 2019-10-02 09:49 | Pharmacy Report ---
Glycemic Control Consultation - Date of Service October 02, 2019 - Scope Scope: Glycemic Pharmacist consulted for glycemic control and to write orders per [facility] inpatient glycemic control protocol - Objective Weight: 91.36 kg Accuchecks BSG (last 24hrs): 10/02/19 10/02/19 10/02/19 00:43 06:07 07:15 Glucose 181 H POC Glucose 248 H 197 H Laboratory Data (last 24hrs): 10/02/19 07:15 Potassium 3.9 Carbon Dioxide 28 Anion Gap 6.0 Creatinine 0.87 Est Cr Clr Drug Dosing 55.4 HbA1c: Hemoglobin A1c 9.5 % (4.5-5.6) H 10/02/19 01:47 - Recent Pertinent Medications Outpatient Anti-diabetic Regimen: * Levemir 25 units SC HS * Metformin * A1c = 9.5 % on 10/02/19 The patient is currently receiving: * Basal insulin: Held 2/18 PM per H&P * Correctional Insulin: Novolog Correction per scale ACHS Goal Range: Low 100 mg/dL - High 150 mg/dL Correction Factor: 25 mg/dL/unit * Prandial insulin: Per carb ratio of 1 unit per 10 grams CHO consumed * Oral Agents: On hold Risk Factors for Insulin Resistance: * Recent Surgery: plan for ORIF of femur fracture, pending medical clearance * Diet: NPO - Assessment & Plan Assessment & Plan: ASSESSMENT: * 74 yo F admitted with femur fracture s/p fall with plan for ORIF pending medical clearance. Patient is currently NPO * Hyperglycemia noted, likely 2nd held home Levemir last night. Will resume, but at ~1/2 home dose for NPO status * Will increase Novolog checks from q6h to q4h PLAN FOR INPATIENT GLYCEMIC CONTROL: * Holding outpatient oral diabetes medications * Basal insulin: Levemir 12 units SQ x1 now then additional tonight based on BSG as follows: * 0 units for BSG less than 140 mg/dL * 4 units for BSG 140-180 mg/dL * 8 units for BSG greater than 180 mg/dL * Bolus insulin * NovoLog per scale q4h * Goal Range: Low 100 mg/dL - High 150 mg/dL * Correction Factor: 25 mg/dL/unit * Nutritional / Prandial insulin per carb ratio of 1 unit per 9 grams CHO consumed * Please note that the plan above was derived based on current level of insulin resistance and hospital stress. These recommendations are appropriate for inpatient admission only. Plan of care upon discharge will need to be reassessed to avoid potential outpatient hypo/hyperglycemia. Thank you.
--- NOTE | 2019-10-02 12:11 | Orthopedic Consultation ---
Date of Consultation October 02, 2019 Assessment & Plan (1) Closed subcapital fracture of left femur: X-rays of been reviewed by [place] orth[facility]ics physicians. Plan for full-length femur film per request of Dr. Ribeiro. Plan for ORIF with 7.3 cannulated screws pending medical clearance. Supervising Physician Co-Signing Physician Notes I have personally seen and examined the patient and agree with above assessment and plan. LLE NVSI +EHL/FHL/TA/GS SILT grossly, +2 DP pulse, compartments soft NT, skin cdi A/P - I have indicated the patient for percutaneous left hip pinning with cannulated screws for valgus impacted left subcapital femoral neck fracture. Patient was medically stabilized on 10/02/2019. The risks, benefits, complications and alternatives to the procedure were explained to the patient and family who are present at bedside for the entirety of the encounter which include however not limited to infections, blood clots, acute blood loss, injury to surrounding nerves, bone, vessels, soft tissue, arthrofibrosis, chronic pain, malunion, nonunion, failure of the implants, displacement of the fracture, need for additional surgery, loss of limb and loss of life. The alternatives include no surgery which could result in worsening clinical prognosis and symptoms. The patient and family wish to proceed with surgical intervention and informed consent was obtained. History of Present Illness Reason for Consultation: Left subcapital hip fracture Attending Physician: Delon Irving MD History of Present Illness Patient is a 74-year white female who lives alone who states that she was ambulating normally in her home. She went to let her dog outside. Usually, her gait door is locked, however when she put her hand on the gait for balance and to open it, the gate swung open suddenly and she lost her balance. She ended up falling onto her left side and had immediate pain in her left hip and groin. She was unable to ambulate and was brought to the emergency room. She denies any loss of consciousness. Denies hitting her head. Denies any shortness of breath, chest pain, lightheadedness prior to or after the fall. X-rays showed that she had a left subcapital hip fracture and she was admitted by the [facility] physician group hospitalist service for further care. We have been asked to take care of her hip fracture. Allergies Allergy/AdvReac Type Severity Reaction Status Date / Time ciprofloxacin [From Cipro] Allergy Unknown Verified 06/24/19 16:33 Penicillins Allergy Unknown Verified 06/24/19 16:33 SURGICAL TAPE Allergy Unknown Uncoded 06/24/19 16:33 Home Medications Home Medications Medication Instructions Recorded Confirmed Type nystatin 100,000 unit/gram topical 1 appln TOP BID #60 gm 03/19/19 10/02/19 Rx powder furosemide 20 mg tablet See Rx Instructions .ROUTE 05/22/19 10/02/19 Rx .COMPLEX #30 tablet atorvastatin 20 mg tablet 20 mg PO DAILY #90 tab 07/23/19 10/02/19 Rx metformin 500 mg tablet 500 mg PO BID #180 tab 07/23/19 10/02/19 Rx aspirin 81 mg tablet,delayed 81 mg PO DAILY #90 tab 07/24/19 10/02/19 Rx release fexofenadine 180 mg tablet 180 mg PO DAILY #90 tab 07/24/19 10/02/19 Rx lisinopril 20 mg tablet 20 mg PO DAILY #90 tab 07/24/19 10/02/19 Rx oxybutynin chloride 5 mg tablet 5 mg PO BID #180 tab 07/24/19 10/02/19 Rx paroxetine HCl 37.5 mg 37.5 mg PO DAILY #90 tab 07/24/19 10/02/19 Rx tablet,extended release 24 hr insulin detemir U-100 [Levemir 25 units SUBCUT HS 10/02/19 10/02/19 History FlexTouch U-100 Insuln] mecobalamin (vitamin B12) 1,000 mcg PO DAILY 10/02/19 10/02/19 History Patient History Medical History Acute left NANCY ischemic stroke December 2018 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 Diabetes (Chronic) Dyslipidemia History of gastroesophageal reflux (GERD) History of pneumonia Hypertension (Chronic) Surgical History S/P cataract surgery S/P hysterectomy S/P tonsillectomy Family History Mother Mouth cancer Ovarian cancer Throat cancer Father Myocardial infarction Other Cancer Coronary heart disease Denies family history of Colon cancer Prostate cancer Breast cancer Social History Preferred Language: Citizen Of [place] Communication Ability: Effective Visual Impairment: Partially Limited Hearing Ability: Normal Respiratory Care Instructor Required: No Beliefs That Will Affect Care: Uatsdin Uatsdin Beliefs: Jewish marital status: / Current Living Situation: Alone current occupational status: retired Feels Safe at Home: Yes Safety Concerns: Feels Safe At This Time Smoking Status: Never smoker Second Hand Exposure: Yes ; Hx Alcohol Use: No Hx Substance Use: No Dental Care, Regularly: No Physical Activity Frequency: Does not Exercise Seatbelt Use: always Review of Systems Review of Systems: As per admitting history and physical. Denies any recent flu or cold-like symptoms, fevers, chills, unexplained weight loss, night sweats. Denies increased cough or sputum production, shortness of breath at rest, chest pain, chest pressure, irregular heartbeat. Denies abdominal pain, nausea, vomiting, diarrhea, melena. Denies urinary symptoms of hematuria, pyuria, dysuria Constitutional: as per Subjective / HPI Physical Exam 2 Physical Exam: Patient is a 74-year-old female who appears older than her stated age. She is awake and alert and answering questions appropriately. She states that she is comfortable at rest but has pain when she tries to move her left lower extremity. She is in no acute distress ,pleasant and cooperative. Focusing the exam on her left lower extremity, leg lengths appears somewhat equal but slightly shorter on the left than the right. He has minimal to no discomfort with internal and external rotation. With passive flexion, I can flex the hip to approximately 50 degrees before she starts having pain in the left hip and groin. This pain is increased whenever I take her back into passive extension. Abduction has mild to moderate pain at approximately 20 to 30 degrees. Adduction has mild to moderate discomfort as well at about 10 to 15 degrees. Her left knee is nontender on palpation and range of motion is within normal limits. Left ankle is nontender and has good range of motion as well. Right lower extremity is unaffected and is nontender at the hip knee and ankle and range of motion is within normal limits. Distal pulses are equal bilaterally of the upper and lower extremities. Upper extremities she is nontender at the shoulders right elbow and wrist. She has some mild left elbow pain from the fall which she had suffered an abrasion. Range of motion is within normal limits. She denies any neck thoracic or low back pain currently. She states that she did have some low back pain earlier in the night she may have been due to position of sleeping. Nothing currently. She has no gross motor or sensory loss seen at this time. Constitutional: WD/WN, vitals as above Results & Data ([facility]) Vital Signs (Past 12 Hours) Vital Signs Temp Pulse Resp BP Pulse Ox 10/02/19 07:25 36.6 C 71 16 125/70 97
--- NOTE | 2019-10-02 12:23 | Anesthesiology Consultation ---
Date of Service October 02, 2019 Assessment & Plan (1) Encounter for pre-operative examination: Chart Review Chart Review: Acceptable Risk for Surgery (patient has elevated risk but needs surgery) and Patient NOT seen in Pre Admission Testing Consults Requested none medicine is following History Height/Weight Height: 5 ft Weight: 91.36 kg Allergies Allergy/AdvReac Type Severity Reaction Status Date / Time ciprofloxacin [From Cipro] Allergy Unknown Verified 06/24/19 16:33 Penicillins Allergy Unknown Verified 06/24/19 16:33 SURGICAL TAPE Allergy Unknown Uncoded 06/24/19 16:33 Medications Home Medications Medication Instructions Recorded Confirmed Last Taken nystatin 100,000 unit/gram topical 1 appln TOP BID #60 gm 03/19/19 10/02/19 Unknown powder furosemide 20 mg tablet See Rx Instructions .ROUTE 05/22/19 10/02/19 Unknown .COMPLEX #30 tablet atorvastatin 20 mg tablet 20 mg PO DAILY #90 tab 07/23/19 10/02/19 Unknown metformin 500 mg tablet 500 mg PO BID #180 tab 07/23/19 10/02/19 Unknown aspirin 81 mg tablet,delayed 81 mg PO DAILY #90 tab 07/24/19 10/02/19 Unknown release fexofenadine 180 mg tablet 180 mg PO DAILY #90 tab 07/24/19 10/02/19 Unknown lisinopril 20 mg tablet 20 mg PO DAILY #90 tab 07/24/19 10/02/19 Unknown oxybutynin chloride 5 mg tablet 5 mg PO BID #180 tab 07/24/19 10/02/19 Unknown paroxetine HCl 37.5 mg 37.5 mg PO DAILY #90 tab 07/24/19 10/02/19 Unknown tablet,extended release 24 hr insulin detemir U-100 [Levemir 25 units SUBCUT HS 10/02/19 10/02/19 Unknown FlexTouch U-100 Insuln] mecobalamin (vitamin B12) 1,000 mcg PO DAILY 10/02/19 10/02/19 Unknown Active Medications Generic Name Dose Route Start Last Admin Trade Name Freq PRN Reason Stop Dose Admin Hydromorphone HCl 0.2 mg 10/02/19 01:27 10/02/19 10:56 Dilaudid IV 10/16/19 01:26 0.2 mg Q3H PRN Administration Severe Pain Potassium Chloride/Sodium Chloride 20 meq in 1,000 mls @ 80 mls/hr 10/02/19 0 1:30 10/02/19 02:12 Normal Saline W/20 Meq Kcl IV 11/01/19 01:29 80 mls/hr .[id number] GREGORY Administration NPO Date Last Intake of Fluids: 10/01/19 Time Last Intake of Fluids: 22:00 Date Last Intake of Solids: 10/01/19 Time Last Intake of Solids: 22:00 Past Medical History Medical History (Updated 10/02/19 @ 12:27 by Chino Morel MD) Acute left NANCY ischemic stroke December 2018 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 Diabetes (Chronic) Dyslipidemia History of gastroesophageal reflux (GERD) History of pneumonia Hypertension (Chronic) Past Family History Family History Mother Mouth cancer Ovarian cancer Throat cancer Father Myocardial infarction Other Cancer Coronary heart disease Denies family history of Colon cancer Prostate cancer Breast cancer Past Surgical History Surgical History S/P cataract surgery S/P hysterectomy S/P tonsillectomy Social History Smoking Status: Never smoker Hx Alcohol Use: No Hx Substance Use: No Physical Exam Vital Signs Last Vital Signs Temp 36.6 C 10/02/19 07:25 Pulse 71 10/02/19 07:25 Resp 16 10/02/19 07:25 BP 125/70 10/02/19 07:25 Pulse Ox 97 10/02/19 07:25 Testing Laboratory Results 10/02/19 07:15 10/02/19 07:15 PT 10.6 Seconds (9.0-12.0) 10/02/19 08:14 INR 1.0 (0.9-1.1) 10/02/19 08:14 APTT 29.6 Seconds (21.0-31.0) 10/02/19 08:14 Hemoglobin A1c 9.5 % (4.5-5.6) H 10/02/19 01:47 Blood Type O Negative 10/02/19 01:47 Antibody Screen NEGATIVE 10/02/19 01:47 10/02/19 10/02/19 10/02/19 12:08 06:07 00:43 POC Glucose 173 H 197 H 248 H Electrocardiogram Date: 10/02/19 SR with PVCs rate 74 Chest X-Ray Date: 10/02/19 [facility], [place] [phone] XRay Report Patient: A[facility] Date: 10/01/19 MR#: [id number]: [address] [place] [address] Acct ID:[id number]: Date: [address] [place] [address] Zip: [place] [address] Age: 74Location: 3N Sex: F Room/Bed: [facility] Att Phy: Delon Irving, MDDiagnosis: LEFT SUBCAPITAL FEMORAL FRACTURE Nakia Phy: Daniela Neves, DOService Date: 10/02/19 Fam Phy:Interpreting Phy: Chino Bryant MD Admit Phy: Gamaliel Doshi M.D. Ordering Phy: Gamaliel Doshi M.D. cc: ~ XR chest 1V portable HISTORY: pre-op COMPARISON: Chest 01/09/2019. FINDINGS: Rotated study. No pneumothorax. No pleural effusions. The heart is mildly enlarged. There is mild central pulmonary vascular congestion without overt edema. No new focal lung consolidations to suggest pneumonia. Right hilar prominence may be due to the rotated study. IMPRESSION: 1. Rotated study. This may account for the right hilar prominence. 2. Mild cardiomegaly with mild central pulmonary vascular congestion. ACT 112: Negative or not required by law. Electronically signed by: Chino Bryant M.D. 10/02/2019 7:33 AM Dictated: 10/02/19 0732 Echocardiogram Date: 01/10/19 EF: 70 Other Findings: + LVH (moderate to severe)
--- NOTE | 2019-10-02 14:16 | XRay Report ---
XR femur LT 2V routine CLINICAL HISTORY: for pre op plan, L hip fx COMPARISON: None. DISCUSSION: Subcapital fracture left hip. Slight impaction. Images were obtained for preoperative stacey luation purposes. . IMPRESSION: Preoperative left femur for measurements prior to operative intervention. ACT 112: Negative or not required by law. The above report was generated using voice recognition software. It may contain grammatical, syntax or spelling errors. Electronically signed by: Abhay Abbott M.D. 10/02/2019 2:15 PM
[2019-10-02] MEDS ORDERED: MIDAZOLAM HCL 1 MG/ML 2ML VIAL ONE (14:52)
[2019-10-02] MEDS ORDERED: KETOROLAC 30 MG/ML VIAL IV PRN (15:45)
[2019-10-02] MEDS ORDERED: ATROPINE SULFATE 0.1 MG/ML 10ML SYR IV PRN (15:45)
[2019-10-02] MEDS ORDERED: LABETALOL HCL IV 5 MG/ML 20ML IV PRN (15:45)
[2019-10-02] MEDS ORDERED: HYDROmorphone INJ 1 MG/ML SYRINGE IV PRN (15:45)
[2019-10-02] MEDS ORDERED: PROPOFOL IV EMULSION 10 MG/ML 20 ML VIAL IV ONE (15:50)
[2019-10-02] MEDS ORDERED: LIDOCAINE HCL 2% 2 ML VIAL/AMP(20MG/ML) INFIL ONE (15:50)
[2019-10-02] MEDS ORDERED: ROCURONIUM BROMIDE 10 MG/ML 5 ML VIAL ONE (15:50)
[2019-10-02] MEDS ORDERED: fentaNYL citrate 100 MCG/2 ML VIAL ONE ×2 (15:50→16:19)
[2019-10-02] MEDS ORDERED: CLINDAMYCIN 900 MG in DEXTROSE 5% 50 ML IV SCH (16:00)
--- NOTE | 2019-10-02 16:00 | History & Physical Bridge Note ---
Date of Service October 02, 2019 History & Physical Bridge Note I have examined the patient, reviewed the History & Physical and in the interval since the performance of the History & Physical I have noted the following changes of clinical significance: no changes noted
[2019-10-02] MEDS ORDERED: BUPIVACAINE/EPINEPHRINE 0.5% MPF 1:200,000 10 ML VIAL ONE (16:14)
[2019-10-02] MEDS ORDERED: ONDANSETRON INJ 2 MG/ML 2 ML VIAL ONE (16:18)
[2019-10-02] MEDS ORDERED: PHENYLEPHRINE 100MCG/ML 5ML SYR ONE (16:30)
[2019-10-02] MEDS ORDERED: DEXAMETHASONE SOD INJ 4 MG/ML VIAL ONE (17:02)
[2019-10-02] MEDS ORDERED: GLYCOPYRROLATE 0.2 MG/ML VIAL ONE (17:03)
[2019-10-02] MEDS ORDERED: NEOSTIGMINE METHYLSULFATE 5 MG/5 ML SYR ONE (17:03)
--- NOTE | 2019-10-02 17:28 | Fluoroscopy Report ---
INTRAOPERATIVE RADIOGRAPHS CLINICAL HISTORY: Open reduction and internal fixation of the left hip. Fluoroscopy time: 99 seconds. FINDINGS: 2 spot fluoroscopic views of the left hip are correlated with radiographs dated 10/02/2019. 3 intertrochanteric cortical lag screws are in place transfixing a subcapital fracture. Near-anatomic alignment is maintained. The orthopedic hardware appears intact. IMPRESSION: Intraoperative images from open reduction and internal fixation of a left proximal femur as above. Electronically signed by: Tyshawn Little M.D. 10/02/2019 5:27 PM
--- NOTE | 2019-10-02 17:29 | Post Operative Brief Note ---
Immediate Post Op Note v1 Date of Surgery October 02, 2019 Pre & Post Diagnosis Operation Date: 10/02/19 11:30 Pre-Op Diagnosis: LEFT SUBCAPITAL FEMORAL FRACTURE Post-Op Diagnosis: LEFT SUBCAPITAL FEMORAL FRACTURE I identified the patient and participated in the time-out.: Yes Procedure Operation Date: 10/02/19 11:30 Actual Procedures p Left hip percutaneous pinning with cannulated screws(Left) - Austen Ribeiro DO Surgeon Austen Ribeiro DO Mortgage Branch Manager none Estimated Blood Loss 85 Findings Consistent with Post-Op Diagnosis Fluids 800 cc LR Specimens none Anesthesia Type General Complications none Disposition Disposition: Recovery Room Overlapping Procedure I was present for: the critical portions of procedure. I was immediately available: during the entire case. Back up surgeon: was not required during procedure.
--- NOTE | 2019-10-02 17:31 | Operative Report ---
Post Operative Report Pre & Post Diagnosis Operation Date: 10/02/19 11:30 Pre-Op Diagnosis: LEFT SUBCAPITAL FEMORAL FRACTURE Post-Op Diagnosis: LEFT SUBCAPITAL FEMORAL FRACTURE I identified the patient and participated in the time-out.: Yes Procedure Operation Date: 10/02/19 11:30 Actual Procedures p Left hip percutaneous pinning with cannulated screws(Left) - Austen Ribeiro DO Surgeon Austen Ribeiro, Network Control Supervisor none Estimated Blood Loss 85 Findings Consistent with Post-Op Diagnosis Fluids 800 cc LR Specimens none Drains none Anesthesia Type General Complications none Disposition Disposition: Recovery Room Indications The patient is a 74-year white female who lives alone who states that she was ambulating normally in her home. She went to let her dog outside. Usually, her gait door is locked, however when she put her hand on the gait for balance and to open it, the gate swung open suddenly and she lost her balance. She ended up falling onto her left side and had immediate pain in her left hip and groin. She was unable to ambulate and was brought to the emergency room. She denies any loss of consciousness. Denies hitting her head. Denies any shortness of breath, chest pain, lightheadedness prior to or after the fall. X-rays showed that she had a left valgus impacted subcapital hip fracture and she was admitted by the [facility] physician group hospitalist service for further care. We have been asked to take care of her hip fracture. I have indicated the patient for percutaneous left hip pinning with cannulated screws for valgus impacted left subcapital femoral neck fracture. Patient was medically stabilized on 10/02/2019. The risks, benefits, complications and alternatives to the procedure were explained to the patient and family who are present at bedside for the entirety of the encounter which include however not limited to infections, blood clots, acute blood loss, injury to surrounding nerves, bone, vessels, soft tissue, arthrofibrosis, chronic pain, malunion, nonunion, failure of the implants, displacement of the fracture, need for additional surgery, loss of limb and loss of life. The alternatives include no surgery which could result in worsening clinical prognosis and symptoms. The patient and family wish to proceed with surgical intervention and informed consent was obtained. Description of Procedure The patient was identified, brought to the operating room, and placed in supine position on the table. After induction of general anesthesia, the patient was positioned on a fracture table. Imaging was obtained utilizing C-arm fluoroscopy of the left hip to assess hip position and version. No reduction w as needed. The left hip was then sterilely prepped and draped in the usual fashion for the surgery. A timeout was performed with site nury confirmation and preoperative antibiotics given. Once again under C-arm fluoroscopy a guide pin was inserted percutaneously and positioned in the inferior neck and femoral head while assessed in both the AP and lateral planes. When satisfactory position was confirmed a small direct lateral incision of the right hip around the guide pin was made. Dissection was carried down to the femur through the IT band and the vastus lateralis was elevated off the bone. Adequate hemostasis was achieved with electrocautery. Next under direct visualization with C-arm fluoroscopy we then used the pin guide to place two additional pins in the anterior superior and posterior superior positions. Position was confirmed both with C-arm fluroscopy in the AP and lateral postion. Each guide pin was measured for appropriate screw length and overdrilled using the cannulated drill bit while utilizing C-arm fluoroscopy to confirm no pin migration had occurred. Three 7.3 16 thread cannulated screws measure 80, 80 and 80 mm were then placed under C-arm fluoroscopy into the femoral head with excellent fixation. The guide pins were removed at this time and final images were obtained utilizing C- arm fluoroscopy. Once this was done and the fixation was solid, the wound was irrigated with copious amounts of sterile saline solution. We then closed in layers using 1 Vicryl, 2-0 Vicryl, and remington for the skin. Sterile xeroform, 4x4, ABD and foam tape dressing was applied. The patient was extubated in the OR , tolerated the procedure well and was taken to the PACU in stable condition. I attest to the content of the Intraoperative Record and any orders documented therein. Any exceptions are noted below.
--- NOTE | 2019-10-02 17:48 | Orthopedic Progress Note ---
Date of Service October 02, 2019 Assessment & Plan (1) Closed subcapital fracture of left femur: s/p percutaneous pinning left hip with cannulated screws -clinda x 24 -DVT ppx: SCDs, TEDs, Lovenox daily -Toe touch non weight bearing LLE -PT/OT when medically stable -PO XR demonstrates well aligned well fixed cannulated screws, anatomic alignment of fractures -am labs Admission and Anticipated Discharge Date Admission Date: October 02, 2019 Subjective Post Operative Progress Note Patient seen in PACU, comfortable, still slowly waking up for anesthesia, no acute issues. Review of Systems Review of Systems: All systems reviewed & are unremarkable except as noted in HPI & below Constitutional: as per Subjective / HPI Physical Exam Physical Exam: LLE NVSI +EHL/FHL SILT grossly, +2 DP pulse, compartments soft NT, dressing cdi. Constitutional: WD/WN, vitals as above Results & Data ([facility]) Vital Signs (Past 12 Hours) Vital Signs Temp Pulse Pulse Pulse Resp BP Pulse Ox 10/02/19 15:41 36.7 C 85 15 188/77 H 95 10/02/19 15:28 36.9 C 10/02/19 15:23 16 L 84 128/79 96 10/02/19 07:25 36.6 C 71 16 125/70 97
--- NOTE | 2019-10-02 18:37 | Anesthesiology Progress Note ---
Date of Service October 02, 2019 Anesthesia Post Procedure Vital Signs Vital Signs: Temp Pulse Pulse Pulse Resp BP Pulse Ox 10/02/19 18:10 36.6 C 81 19 112/58 L 95 10/02/19 18:00 36.6 C 79 17 110/50 L 93 10/02/19 17:50 85 18 111/51 L 94 10/02/19 17:40 89 19 114/65 96 10/02/19 17:34 36.5 C 89 18 159/80 H 97 10/02/19 15:41 36.7 C 85 15 188/77 H 95 10/02/19 15:28 36.9 C 10/02/19 15:23 16 L 84 128/79 96 10/02/19 07:25 36.6 C 71 16 125/70 97 10/01/19 23:55 36.6 C 77 18 161/84 H 97 Pain Intensity Left Hip: Pain Intensity: 5 Transfer of Care Handoff Completed per policy Notes Mental Status: alert / awake / arousable Patient Amnestic to Procedure: Yes Nausea / Vomiting: adequately controlled Pain: adequately controlled Airway Patency, RR, SpO2: stable & adequate BP & HR: stable & adequate Hydration State: stable & adequate Anesthetic Complications: no major complications apparent
--- NOTE | 2019-10-02 19:13 | XRay Report ---
LEFT HIP 2 VIEWS CLINICAL HISTORY: Postoperative examination. FINDINGS: AP and crosstable lateral views of the left hip are correlated with femoral radiographs mayelin ed 10/02/2019. The skeletal structures are osteopenic. 3 cortical lag screws transfix an impacted subc apital fracture of the left femur. Near-anatomic alignment is maintained. No new fracture is seen. Mi ld to moderate degenerative narrowing is seen at the left hip joint. The visualized left hemipelvis a ppears intact. Subcutaneous gas, soft tissue swelling, and skin clips are expected postoperative find ings. IMPRESSION: Expected postoperative findings status post open reduction and internal fixation of the l eft hip as above. Electronically signed by: Tsyhawn Little M.D. 10/02/2019 7:11 PM
[2019-10-02] MEDS: DOCUSATE SODIUM/SENNA 50/8.6MG TAB PO SCH (21:07)
[2019-10-02] MEDS: OXYBUTYNIN CHLORIDE 5 MG TAB PO SCH (21:07)
--- NOTE | 2019-10-02 21:58 | Ultrasound Report ---
ULTRASOUND BILATERAL LOWER EXTREMITY VENOUS CLINICAL HISTORY: Leg pain and swelling. COMPARISON STUDY: Left lower extremity venous ultrasound dated 01/12/2019. TECHNIQUE: Real-time, grayscale, and color Doppler sonography of the deep veins of the right and left lower extremity was performed from the inguinal crease to the calf. Compression and augmentation wer e utilized. The examination is degraded by lack of patient cooperation. FINDINGS: There is no sonographic evidence of deep venous thrombosis identified in the right or left lower extremity. The common femoral, superficial femoral, and popliteal veins are patent and normally compressible bilaterally. The greater saphenous vein and the profunda femoris vein at the junction w ith the common femoral vein are clear in both legs. The visualized calf veins are patent bilaterally. IMPRESSION: There is no sonographic evidence of deep venous thrombosis identified in the right or lef t lower extremity. ACT 112: Negative or not required by law. Electronically signed by: Tyshawn Little M.D. 10/02/2019 9:57 PM
[2019-10-02] MEDS: CLINDAMYCIN 900 MG in DEXTROSE 5% 50 ML IV SCH (23:51)
[2019-10-03] MEDS: INSULIN ASPART 100 UNITS/ML 3 ML PEN SC SCH ×5 (04:22→20:58)
[2019-10-03] MEDS ORDERED: CLINDAMYCIN PHOS 900 MG/6 ML VIAL IV SCH (06:00)
[2019-10-03 06:03] LABS: Eosinophils # (auto) 0.03 K/uL (0-0.5); Eosinophils % (auto) 0.4 %; Hematocrit (blood only) 35.2 % (37-47); Hemoglobin 11.4 g/dL (12.0-16.0); Immature Granulocytes # (auto) 0.01 K/uL (0.00-0.02); Immature Granulocytes % (auto) 0.1 %; Lymphocytes # (auto) 0.84 K/uL (1.2-3.4); Lymphocytes % (auto) 10.8 %; Mean Corpuscular Hgb Conc 32.4 g/dL (32-36); Mean Corpuscular Volume 83.4 fL (80-100); Mean Platelet Volume 9.3 fL (7.4-10.4); Monocytes # (auto) 0.37 K/uL (0.11-0.59); Monocytes % (auto) 4.7 %; Neutrophils # (auto) 6.56 K/uL (1.4-6.5); Platelet Count 162 K/uL (130-400); RDW Coefficient of Variation 14.4 % (11.5-14.5); RDW Standard Deviation 44.2 fL (36.4-46.3); Red Blood Count 4.22 M/uL (4.2-5.4); White Blood Count 7.81 K/uL (4.8-10.8)
--- NOTE | 2019-10-03 06:04 | Electrocardiogram Report ---
Test Reason : Blood Pressure : / mmHG Vent. Rate : 074 BPM Atrial Rate : 074 BPM P-R Int : 172 ms QRS Dur : 084 ms QT Int : 412 ms P-R-T Axes : 054 054 080 degrees QTc Int : 457 ms Sinus rhythm with occasional Premature ventricular complexes Otherwise normal ECG When compared with ECG of 09-JAN-2019 16:49, Premature ventricular complexes are now Present Premature supraventricular complexes are no longer Present T wave inversion no longer evident in Inferior leads T wave inversion no longer evident in Anterior leads QT has shortened Confirmed by Ravindra Ortiz ([id number]) on 10/03/2019 6:04:01 AM Referred By: Gamaliel Doshi Confirmed By:Ravindra Ortiz
[2019-10-03 06:15] LABS: Partial Thromboplastin Ratio 1.1; Partial Thromboplastin Time 30.3 Seconds (21.0-31.0); Prothrombin Time 10.5 Seconds (9.0-12.0)
[2019-10-03 06:37] LABS: Albumin Level 2.7 gm/dl (3.4-5.0); BUN Creatinine Ratio 21.6 (10-20); Calcium 8.3 mg/dl (8.5-10.1); Creatinine Clr Calc Pharmacy 58.8 ml/min; Est GFR (African American) 80.6; Est GFR (Non-African American) 69.5; Potassium 4.2 mmol/L (3.5-5.1)
[2019-10-03 06:46] LABS: Phosphorus 4.2 mg/dl (2.5-4.9)
[2019-10-03] MEDS: ATORVASTATIN 20 MG TAB PO SCH (07:55)
[2019-10-03] MEDS: PARoxetine HCl CONTROLLED REL 12.5 MG TABCR PO SCH (07:55)
[2019-10-03] MEDS: OXYBUTYNIN CHLORIDE 5 MG TAB PO SCH ×2 (07:55→21:12)
[2019-10-03] MEDS: ENOXAPARIN INJ 40 MG/0.4 ML SYR SQ SCH (07:56)
[2019-10-03] MEDS: lisinopriL 20 MG TAB PO SCH (07:56)
[2019-10-03] MEDS: CLINDAMYCIN 900 MG in DEXTROSE 5% 50 ML IV SCH ×3 (08:19→23:58)
[2019-10-03] MEDS ORDERED: FUROSEMIDE 20 MG TAB PO PRN (09:00)
[2019-10-03] MEDS ORDERED: INSULIN DETEMIR FLEXPEN/FLEX TOUCH 100 UNITS/ML 3ML SC ONE (09:00)
--- NOTE | 2019-10-03 10:24 | Anesthesiology Progress Note ---
Date of Service October 03, 2019 Anesthesia Post Procedure Vital Signs Vital Signs: Temp Pulse Pulse Pulse Resp BP Pulse Ox 10/03/19 07:37 36.8 C 87 18 178/95 H 100 10/03/19 04:07 36.6 C 75 17 148/78 H 95 10/02/19 23:45 36.9 C 86 16 149/77 H 97 10/02/19 19:35 36.5 C 86 16 128/62 95 10/02/19 19:00 36.3 C L 81 16 124/70 94 10/02/19 18:47 36.7 C 82 16 113/67 98 10/02/19 18:10 36.6 C 81 19 112/58 L 95 10/02/19 18:00 36.6 C 79 17 110/50 L 93 10/02/19 17:50 85 18 111/51 L 94 10/02/19 17:40 89 19 114/65 96 10/02/19 17:34 36.5 C 89 18 159/80 H 97 10/02/19 15:41 36.7 C 85 15 188/77 H 95 10/02/19 15:28 36.9 C 10/02/19 15:23 16 L 84 128/79 96 Pain Intensity Left Hip: Pain Intensity: 5 Notes Mental Status: alert / awake / arousable and participated in evaluation Patient Amnestic to Procedure: Yes Nausea / Vomiting: adequately controlled Pain: adequately controlled Airway Patency, RR, SpO2: stable & adequate BP & HR: stable & adequate Hydration State: stable & adequate Anesthetic Complications: no major complications apparent and Pt Satisfied with anesthetic care
[2019-10-03] MEDS: OXYCODONE HCL IR 5 MG TAB (IMMEDIATE RELEASE) PO PRN ×3 (11:13→21:11)
--- NOTE | 2019-10-03 11:23 | Hospitalist Progress Note ---
Date of Service October 03, 2019 Assessment & Plan (1) Closed subcapital fracture of left femur: Closed subcapital fracture of left femur secondary to mechanical fall S/p Left hip percutaneous pinning with cannulated screws Pain well controlled, continue prn meds Hgb with minimal decrease Consulted Dr. Bergman from orthopedic surgery. (2) Urinary incontinence: Will dc moy, can use purewick if incontinence is an issue (3) Acute left NANCY ischemic stroke: No new findings (4) Depression: Continue home Paroxetine extended release 37.5 mg daily (5) Hyperlipidemia: Atorvastatin 20 mg p.o. daily (6) Hypertension: Resume aspirin, continue lisinopril and furosemide. (7) Diabetes: BSGs ac & hs, ss, lantus A1c 9.5 Pharmacy glycemic consult Diabetic education (8) Chronic venous insufficiency: Hold furosemide for now. Venous doppler neg for DVT Admission and Anticipated Discharge Date Admission Date: October 02, 2019 Feb 20 or 21 Subjective Ms. Lang feels very well today. She was eating breakfast at the time of my assessment and tolerating well. Her pain is relieved ROS Constitutional: no chills, aches, sweats or fever Respiratory: no sob,cough, sputum, or wheezing Cardiac: no chest pain, palpitations, edema, orthopnea or lightheadedness GI: no abdominal pain, nausea, vomiting, diarrhea or constipation : no dysuria or hesitancy Extremities: no joint pain or weakness Skin: no rash All other systems reviewed and negative Physical Exam Physical Exam: General: no distress Eyes: normal inspection, PERLL Respiratory: chest non tender, clear to auscultation, normal breath sounds, no respiratory distress, no accessory muscle use Cardiac: regular rate and rhythm, no rub or gallop, no murmur, bilat lower extremity edema GI/: active bowel sounds, no abd pain or tenderness, soft, non distended Extremities: normal range of motion, normal strength, non tender Neuro/Psych: alert and oriented x 3, normal mood and affect Skin: normal color, dry Results & Data ([facility]) Vital Signs (Past 12 Hours) Vital Signs Temp Pulse Resp BP Pulse Ox 10/03/19 07:37 36.8 C 87 18 178/95 H 100 10/03/19 04:07 36.6 C 75 17 148/78 H 95 10/02/19 23:45 36.9 C 86 16 149/77 H 97 PG Care Time/CCT Total # of Minutes Spent Total Time Spent with Patient: Total time spent is greater than 50% in coordination of care (as documented) at patient's floor/unit and/or counseling patient: Coding Level of Care Code 13469 Subseq Hosp Care Lvl 3 Diagnoses Closed subcapital fracture of left femur S72.012A Urinary incontinence R32 Acute left NANCY ischemic stroke I63.522 Depression F32.9 Hyperlipidemia E78.5 Hyperlipidemia type: unspecified Hypertension I10 Hypertension type: essential hypertension Diabetes E11.8 Diabetes mellitus type: type 2 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: unspecified intermodal owner operator truck driver insulin use status Diabetes mellitus complication status: with unspecified complications Chronic venous insufficiency I87.2 (1) Hyperlipidemia Hyperlipidemia type: unspecified Qualified Code(s): E78.5 - Hyperlipidemia, unspecified (2) Hypertension Hypertension type: essential hypertension Qualified Code(s): I10 - Essential (primary) hypertension (3) Diabetes Diabetes mellitus type: type 2 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
--- NOTE | 2019-10-03 13:04 | Orthopedic Progress Note ---
Date of Service October 03, 2019 Assessment & Plan (1) Closed subcapital fracture of left femur: s/p percutaneous pinning left hip with cannulated screws POD#1 -clinda x 24 -DVT ppx: SCDs, TEDs, Lovenox daily -Toe touch non weight bearing LLE -PT/OT when medically stable -PO XR demonstrates well aligned well fixed cannulated screws, anatomic alignment of fractures -am labs - as above, hgb 11.4 Admission and Anticipated Discharge Date Admission Date: October 02, 2019 Subjective Post Operative Progress Note Patient seen sitting up in bed, comfortable, denies complaints, pain well controlled, no acute issues. Denies F/C/N/V/SOB/CP Review of Systems Review of Systems: All systems reviewed & are unremarkable except as noted in HPI & below Constitutional: as per Subjective / HPI Physical Exam Physical Exam: LLE NVSI +EHL/FHL/TA/GS SILT grossly, +2 DP pulse, compartments soft NT, dressing cdi. Constitutional: WD/WN, vitals as above Results & Data ([facility]) Vital Signs (Past 12 Hours) Vital Signs Temp Pulse Resp BP Pulse Ox 10/03/19 11:39 36.7 C 87 18 130/75 95 10/03/19 11:35 92 10/03/19 07:37 36.8 C 87 18 178/95 H 100 10/03/19 04:07 36.6 C 75 17 148/78 H 95 Laboratory Results 10/03/19 10/03/19 10/03/19 Range/Units 12:34 07:47 05:29 WBC (4.8-10.8) K/uL RBC (4.2-5.4) M/uL Hgb (12.0-16.0) g/dL Hct (37-47) % MCV (80-100) fL MCH (25-34) pg MCHC (32-36) g/dL RDW Std Deviation (36.4-46.3) fL RDW Coeff of Catherine (11.5-14.5) % Plt Count (130-400) K/uL MPV (7.4-10.4) fL Immature Gran % (Auto) % Neut % (Auto) % Lymph % (Auto) % [place] % (Auto) % Eos % (Auto) % Baso % (Auto) % Immature Gran # (Auto) (0.00-0.02) K/uL Neut # (Auto) (1.4-6.5) K/uL Lymph # (Auto) (1.2-3.4) K/uL [place] # (Auto) (0.11-0.59) K/uL Eos # (Auto) (0-0.5) K/uL Baso # (Auto) (0-0.2) K/uL PT (9.0-12.0) Seconds INR (0.9-1.1) APTT (21.0-31.0) Seconds PTT Ratio Sodium 137 (136-145) mmol/L Potassium 4.2 (3.5-5.1) mmol/L Chloride 107 (98-107) mmol/L Carbon Dioxide 26 (21-32) mmol/L Anion Gap 4.0 (3-11) BUN 18 (7-18) mg/dl Creatinine 0.82 (0.6-1.2) mg/dl Est Cr Clr Drug Dosing 58.8 ml/min Est GFR ( Amer) 80.6 Est GFR (Non-Af Amer) 69.5 BUN/Creatinine Ratio 21.6 H (10-20) Glucose 230 H (70-99) mg/dl POC Glucose 198 H 181 H (70-99) mg/dl Calcium 8.3 L (8.5-10.1) mg/dl Phosphorus 4.2 (2.5-4.9) mg/dl Albumin 2.7 L (3.4-5.0) gm/dl 10/03/19 10/03/19 10/03/19 Range/Units 05:29 05:29 04:15 WBC 7.81 (4.8-10.8) K/uL RBC 4.22 (4.2-5.4) M/uL Hgb 11.4 L (12.0-16.0) g/dL Hct 35.2 L (37-47) % MCV 83.4 (80-100) fL MCH 27.0 (25-34) pg MCHC 32.4 (32-36) g/dL RDW Std Deviation 44.2 (36.4-46.3) fL RDW Coeff of Catherine 14.4 (11.5-14.5) % Plt Count 162 (130-400) K/uL MPV 9.3 (7.4-10.4) fL Immature Gran % (Auto) 0.1 % Neut % (Auto) 84.0 % Lymph % (Auto) 10.8 % [place] % (Auto) 4.7 % Eos % (Auto) 0.4 % Baso % (Auto) 0.0 % Immature Gran # (Auto) 0.01 (0.00-0.02) K/uL Neut # (Auto) 6.56 H (1.4-6.5) K/uL Lymph # (Auto) 0.84 L (1.2-3.4) K/uL [place] # (Auto) 0.37 (0.11-0.59) K/uL Eos # (Auto) 0.03 (0-0.5) K/uL Baso # (Auto) 0.00 (0-0.2) K/uL PT 10.5 (9.0-12.0) Seconds INR 1.0 (0.9-1.1) APTT 30.3 (21.0-31.0) Seconds PTT Ratio 1.1 Sodium (136-145) mmol/L Potassium (3.5-5.1) mmol/L Chloride (98-107) mmol/L Carbon Dioxide (21-32) mmol/L Anion Gap (3-11) BUN (7-18) mg/dl Creatinine (0.6-1.2) mg/dl Est Cr Clr Drug Dosing ml/min Est GFR ( Amer) Est GFR (Non-Af Amer) BUN/Creatinine Ratio (10-20) Glucose (70-99) mg/dl POC Glucose 231 H (70-99) mg/dl Calcium (8.5-10.1) mg/dl Phosphorus (2.5-4.9) mg/dl Albumin (3.4-5.0) gm/dl 10/02/19 10/02/19 10/02/19 Range/Units 23:50 19:32 17:38 WBC (4.8-10.8) K/uL RBC (4.2-5.4) M/uL Hgb (12.0-16.0) g/dL Hct (37-47) % MCV (80-100) fL MCH (25-34) pg MCHC (32-36) g/dL RDW Std Deviation (36.4-46.3) fL RDW Coeff of Catherine (11.5-14.5) % Plt Count (130-400) K/uL MPV (7.4-10.4) fL Immature Gran % (Auto) % Neut % (Auto) % Lymph % (Auto) % [place] % (Auto) % Eos % (Auto) % Baso % (Auto) % Immature Gran # (Auto) (0.00-0.02) K/uL Neut # (Auto) (1.4-6.5) K/uL Lymph # (Auto) (1.2-3.4) K/uL [place] # (Auto) (0.11-0.59) K/uL Eos # (Auto) (0-0.5) K/uL Baso # (Auto) (0-0.2) K/uL PT (9.0-12.0) Seconds INR (0.9-1.1) APTT (21.0-31.0) Seconds PTT Ratio Sodium (136-145) mmol/L Potassium (3.5-5.1) mmol/L Chloride (98-107) mmol/L Carbon Dioxide (21-32) mmol/L Anion Gap (3-11) BUN (7-18) mg/dl Creatinine (0.6-1.2) mg/dl Est Cr Clr Drug Dosing ml/min Est GFR ( Amer) Est GFR (Non-Af Amer) BUN/Creatinine Ratio (10-20) Glucose (70-99) mg/dl POC Glucose 266 H 193 H 144 H (70-99) mg/dl Calcium (8.5-10.1) mg/dl Phosphorus (2.5-4.9) mg/dl Albumin (3.4-5.0) gm/dl 10/02/19 Range/Units 15:44 WBC (4.8-10.8) K/uL RBC (4.2-5.4) M/uL Hgb (12.0-16.0) g/dL Hct (37-47) % MCV (80-100) fL MCH (25-34) pg MCHC (32-36) g/dL RDW Std Deviation (36.4-46.3) fL RDW Coeff of Catherine (11.5-14.5) % Plt Count (130-400) K/uL MPV (7.4-10.4) fL Immature Gran % (Auto) % Neut % (Auto) % Lymph % (Auto) % [place] % (Auto) % Eos % (Auto) % Baso % (Auto) % Immature Gran # (Auto) (0.00-0.02) K/uL Neut # (Auto) (1.4-6.5) K/uL Lymph # (Auto) (1.2-3.4) K/uL [place] # (Auto) (0.11-0.59) K/uL Eos # (Auto) (0-0.5) K/uL Baso # (Auto) (0-0.2) K/uL PT (9.0-12.0) Seconds INR (0.9-1.1) APTT (21.0-31.0) Seconds PTT Ratio Sodium (136-145) mmol/L Potassium (3.5-5.1) mmol/L Chloride (98-107) mmol/L Carbon Dioxide (21-32) mmol/L Anion Gap (3-11) BUN (7-18) mg/dl Creatinine (0.6-1.2) mg/dl Est Cr Clr Drug Dosing ml/min Est GFR ( Amer) Est GFR (Non-Af Amer) BUN/Creatinine Ratio (10-20) Glucose (70-99) mg/dl POC Glucose 139 H (70-99) mg/dl Calcium (8.5-10.1) mg/dl Phosphorus (2.5-4.9) mg/dl Albumin (3.4-5.0) gm/dl
[2019-10-03] MEDS ORDERED: INSULIN DETEMIR FLEXPEN/FLEX TOUCH 100 UNITS/ML 3ML SC STA (13:28)
--- NOTE | 2019-10-03 13:32 | Pharmacy Report ---
Pharmacy Glycemic Short Note 2 - Date of Service October 03, 2019 - Glycemic Short BSG Results (Last 24 hours): 10/02/19 10/02/19 10/02/19 15:44 17:38 19:32 Glucose POC Glucose 139 H 144 H 193 H 10/02/19 10/03/19 10/03/19 23:50 04:15 05:29 Glucose 230 H POC Glucose 266 H 231 H 10/03/19 10/03/19 07:47 12:34 Glucose POC Glucose 181 H 198 H ASSESSMENT: * Postoperative BSGs elevated today. Likely steroid induced. She is tolerating her diet. PLAN FOR INPATIENT GLYCEMIC CONTROL: * Hold outpatient oral diabetes medications * Basal insulin * Levemir 20 u this AM + 10u this afternoon. Please try and work back to HS levemir for ease of transition at dc * Bolus insulin * NovoLog per scale ACHS or Q6hrs while NPO * Goal Range: Low 100 mg/dL - High 150 mg/dL * Correction Factor: 20 mg/dL/unit * Nutritional / Prandial insulin per carb ratio of 1 unit per 6 grams CHO consumed
[2019-10-03] MEDS: ACETAMINOPHEN 325 MG TAB PO PRN (15:59)
[2019-10-03] MEDS: DOCUSATE SODIUM/SENNA 50/8.6MG TAB PO SCH (21:12)
[2019-10-04 08:14] LABS: Basophils # (auto) 0.01 K/uL (0-0.2); Basophils % (auto) 0.1 %; Eosinophils # (auto) 0.48 K/uL (0-0.5); Eosinophils % (auto) 6.4 %; Hematocrit (blood only) 32.3 % (37-47); Hemoglobin 10.5 g/dL (12.0-16.0); Immature Granulocytes # (auto) 0.02 K/uL (0.00-0.02); Immature Granulocytes % (auto) 0.3 %; Lymphocytes # (auto) 2.57 K/uL (1.2-3.4); Lymphocytes % (auto) 34.1 %; Mean Corpuscular Hemoglobin 27.3 pg (25-34); Mean Corpuscular Hgb Conc 32.5 g/dL (32-36); Mean Corpuscular Volume 83.9 fL (80-100); Mean Platelet Volume 8.8 fL (7.4-10.4); Monocytes % (auto) 6.6 %; Neutrophils # (auto) 3.96 K/uL (1.4-6.5); Neutrophils % (auto) 52.5 %; Platelet Count 179 K/uL (130-400); RDW Coefficient of Variation 14.8 % (11.5-14.5); RDW Standard Deviation 45.3 fL (36.4-46.3); Red Blood Count 3.85 M/uL (4.2-5.4); White Blood Count 7.54 K/uL (4.8-10.8)
--- NOTE | 2019-10-04 08:19 | Orthopedic Progress Note ---
Date of Service October 04, 2019 Assessment & Plan (1) Closed subcapital fracture of left femur: s/p percutaneous pinning left hip with cannulated screws POD#2 -clinda x 24,then dc -DVT ppx: SCDs, TEDs, Lovenox daily -Toe touch non weight bearing LLE -PT/OT when medically stable -am labs - as above Patient seen by Dr. Ribeiro this AM. Orthopedics will sign off at this time. Discharge instructions placed in the EHR. Please call with any questions. Admission and Anticipated Discharge Date Admission Date: October 02, 2019 Supervising Physician Co-Signing Physician Notes Post Operative Progress Note Patient seen sitting up in bed, comfortable, denies complaints, pain well controlled, no acute issues. LLE NVSI +EHL/FHL/TA/GS SILT grossly, +2 DP pulse, compartments soft NT, dressing cdi. A/P - Patient seen and examined, agree with above assessment and plan, toe touch NWB LLE, continue with dvt ppx, lovenox daily, will need follow up 10-[address] Ribeiro, . Hgb 10.5. Subjective POD 2 s/p ORIF Left Subcap Hip Fx with 7.3 cannulated screws. Patient currently awake and alert. Sitting up in bed. Nursing staff present working with the patient. She states that her pain is controlled however she does have pain with movement. No other complaints at this time. Review of Systems Review of Systems: All systems reviewed & are unremarkable except as noted in HPI & below Constitutional: as per Subjective / HPI Physical Exam Physical Exam: Dressings are clean, dry, and intact. Thigh is soft and nontender. Calves are soft, nontender. Toes are mobile. Constitutional: WD/WN, vitals as above Results & Data ([facility]) Vital Signs (Past 12 Hours) Vital Signs Temp Pulse Pulse Resp BP Pulse Ox 10/04/19 07:35 36.8 C 76 14 147/78 H 96 10/03/19 23:38 37.3 C 82 18 133/69 94 Laboratory Results Laboratory Results WBC 7.54 K/uL (4.8-10.8) 10/04/19 07:54 RBC 3.85 M/uL (4.2-5.4) L 10/04/19 07:54 Hgb 10.5 g/dL (12.0-16.0) L 10/04/19 07:54 Hct 32.3 % (37-47) L 10/04/19 07:54 MCV 83.9 fL (80-100) 10/04/19 07:54 MCH 27.3 pg (25-34) 10/04/19 07:54 MCHC 32.5 g/dL (32-36) 10/04/19 07:54 RDW Std Deviation 45.3 fL (36.4-46.3) 10/04/19 07:54 RDW Coeff of Catherine 14.8 % (11.5-14.5) H 10/04/19 07:54 Plt Count 179 K/uL (130-400) 10/04/19 07:54 MPV 8.8 fL (7.4-10.4) 10/04/19 07:54 Immature Gran % (Auto) 0.3 % 10/04/19 07:54 Neut % (Auto) 52.5 % 10/04/19 07:54 Lymph % (Auto) 34.1 % 10/04/19 07:54 [place] % (Auto) 6.6 % 10/04/19 07:54 Eos % (Auto) 6.4 % 10/04/19 07:54 Baso % (Auto) 0.1 % 10/04/19 07:54 Immature Gran # (Auto) 0.02 K/uL (0.00-0.02) 10/04/19 07:54 Neut # (Auto) 3.96 K/uL (1.4-6.5) 10/04/19 07:54 Lymph # (Auto) 2.57 K/uL (1.2-3.4) 10/04/19 07:54 [place] # (Auto) 0.50 K/uL (0.11-0.59) 10/04/19 07:54 Eos # (Auto) 0.48 K/uL (0-0.5) 10/04/19 07:54 Baso # (Auto) 0.01 K/uL (0-0.2) 10/04/19 07:54 PT 10.5 Seconds (9.0-12.0) 10/03/19 05:29 INR 1.0 (0.9-1.1) 10/03/19 05:29 APTT 30.3 Seconds (21.0-31.0) 10/03/19 05:29 PTT Ratio 1.1 10/03/19 05:29 Sodium 137 mmol/L (136-145) 10/03/19 05:29 Potassium 4.2 mmol/L (3.5-5.1) 10/03/19 05:29 Chloride 107 mmol/L (98-107) 10/03/19 05:29 Carbon Dioxide 26 mmol/L (21-32) 10/03/19 05:29 Anion Gap 4.0 (3-11) 10/03/19 05:29 BUN 18 mg/dl (7-18) 10/03/19 05:29 Creatinine 0.82 mg/dl (0.6-1.2) 10/03/19 05:29 Est Cr Clr Drug Dosing 58.8 ml/min 10/03/19 05:29 Est GFR ( Amer) 80.6 10/03/19 05:29 Est GFR (Non-Af Amer) 69.5 10/03/19 05:29 BUN/Creatinine Ratio 21.6 (10-20) H 10/03/19 05:29 Glucose 230 mg/dl (70-99) H 10/03/19 05:29 POC Glucose 115 mg/dl (70-99) H 10/04/19 08:14 Estimat Average Glucose 226 mg/dl 10/02/19 01:47 Hemoglobin A1c 9.5 % (4.5-5.6) H 10/02/19 01:47 Calcium 8.3 mg/dl (8.5-10.1) L 10/03/19 05:29 Phosphorus 4.2 mg/dl (2.5-4.9) 10/03/19 05:29 Albumin 2.7 gm/dl (3.4-5.0) L 10/03/19 05:29 Blood Type O Negative 10/02/19 01:47 Antibody Screen NEGATIVE 10/02/19 01:47
[2019-10-04 08:22] LABS: Partial Thromboplastin Ratio 1.1; Partial Thromboplastin Time 28.5 Seconds (21.0-31.0); Prothrombin Time 10.3 Seconds (9.0-12.0)
[2019-10-04 08:46] LABS: Albumin Level 2.7 gm/dl (3.4-5.0); BUN Creatinine Ratio 22.9 (10-20); Calcium 8.8 mg/dl (8.5-10.1); Creatinine Clr Calc Pharmacy 52.4 ml/min; Est GFR (African American) 70.1; Est GFR (Non-African American) 60.5; Potassium 4.2 mmol/L (3.5-5.1)
[2019-10-04] MEDS: OXYCODONE HCL IR 5 MG TAB (IMMEDIATE RELEASE) PO PRN ×2 (08:47→13:53)
[2019-10-04 08:50] LABS: Phosphorus 3.3 mg/dl (2.5-4.9)
[2019-10-04] MEDS: ASPIRIN 81 MG ECTAB PO SCH (09:40)
[2019-10-04] MEDS: ATORVASTATIN 20 MG TAB PO SCH (09:40)
[2019-10-04] MEDS: OXYBUTYNIN CHLORIDE 5 MG TAB PO SCH ×2 (09:40→20:41)
[2019-10-04] MEDS: PARoxetine HCl CONTROLLED REL 12.5 MG TABCR PO SCH (09:40)
[2019-10-04] MEDS: lisinopriL 20 MG TAB PO SCH (09:42)
[2019-10-04] MEDS: ENOXAPARIN INJ 40 MG/0.4 ML SYR SQ SCH (09:44)
[2019-10-04] MEDS: INSULIN ASPART 100 UNITS/ML 3 ML PEN SC SCH ×4 (09:54→21:22)
--- NOTE | 2019-10-04 10:37 | Pharmacy Report ---
Pharmacy Glycemic Short Note 2 - Date of Service October 04, 2019 - Glycemic Short BSG Results (Last 24 hours): 10/03/19 10/03/19 10/03/19 12:34 17:08 20:46 Glucose POC Glucose 198 H 185 H 108 H 10/04/19 10/04/19 07:54 08:14 Glucose 122 H POC Glucose 115 H ASSESSMENT: 10/04: * Patient received total of 66 units of insulin yesterday, of which 30 were basal insulin * Fasting BSG w/in range today at 115 mg/dL - will hold basal until lunch time as trying to move dosing at HS (same as what patient takes at home) * Will dose levemir with lunch - resume home dose of 25 units * Continue same CF/CR for now PLAN FOR INPATIENT GLYCEMIC CONTROL: * Hold outpatient oral diabetes medications * Basal insulin * Levemir 25 with lunch- Please try and work back to HS levemir for ease of transition at al * Bolus insulin * NovoLog per scale ACHS or Q6hrs while NPO * Goal Range: Low 100 mg/dL - High 150 mg/dL * Correction Factor: 20 mg/dL/unit * Nutritional / Prandial insulin per carb ratio of 1 unit per 6 grams CHO consumed
[2019-10-04] MEDS ORDERED: INSULIN DETEMIR FLEXPEN/FLEX TOUCH 100 UNITS/ML 3ML SC ONE (12:30)
--- NOTE | 2019-10-04 15:01 | Hospitalist Progress Note ---
Date of Service October 04, 2019 Assessment & Plan (1) Closed subcapital fracture of left femur: Closed subcapital fracture of left femur secondary to mechanical fall S/p Left hip percutaneous pinning with cannulated screws 10/03 Pain well controlled, continue prn meds Hgb with minimal decrease Consulted Dr. Bergman from orthopedic surgery - have signed off (2) Urinary incontinence: continue purewick if needed, moy discontinued (3) Acute left NANCY ischemic stroke: No new findings (4) Depression: Continue home Paroxetine extended release 37.5 mg daily (5) Hyperlipidemia: Atorvastatin 20 mg p.o. daily (6) Hypertension: Continue aspirin, continue lisinopril and furosemide. (7) Diabetes: BSGs ac & hs, ss, lantus A1c 9.5 Pharmacy glycemic consult Diabetic education (8) Chronic venous insufficiency: Resume furosemide Venous doppler neg for DVT Admission and Anticipated Discharge Date Admission Date: October 02, 2019 Subjective Ms. Yoo is feeling well, pain in her hip is a bit worse today but otherwise she has no complaints. ROS Constitutional: no chills, aches, sweats or fever Respiratory: no sob,cough, sputum, or wheezing Cardiac: no chest pain, palpitations, edema, orthopnea or lightheadedness GI: no abdominal pain, nausea, vomiting, diarrhea or constipation : no dysuria or hesitancy Extremities: no joint pain or weakness Skin: no rash All other systems reviewed and negative Physical Exam Physical Exam: General: no distress Eyes: normal inspection, PERLL Respiratory: chest non tender, clear to auscultation, normal breath sounds, no respiratory distress, no accessory muscle use Cardiac: regular rate and rhythm, no rub or gallop, no murmur, no edema, no jvd GI/: active bowel sounds, no abd pain or tenderness, soft, non distended Extremities: normal range of motion, normal strength, non tender Neuro/Psych: alert and oriented x 3, normal mood and affect Skin: normal color, dry Results & Data ([facility]) Vital Signs (Past 12 Hours) Vital Signs Temp Pulse Resp BP Pulse Ox 10/04/19 13:50 92 10/04/19 09:42 153/74 H 10/04/19 07:35 36.8 C 76 14 147/78 H 96 PG Care Time/CCT Total # of Minutes Spent Total Time Spent with Patient: Total time spent is greater than 50% in coordination of care (as documented) at patient's floor/unit and/or counseling patient: Coding Level of Care Code 20664 Subseq Hosp Care Lvl 2 Diagnoses Closed subcapital fracture of left femur S72.012A Urinary incontinence R32 Acute left NANCY ischemic stroke I63.522 Depression F32.9 Hyperlipidemia E78.5 Hyperlipidemia type: unspecified Hypertension I10 Hypertension type: essential hypertension Diabetes E11.8 Diabetes mellitus type: type 2 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: unspecified fdc insulin use status Diabetes mellitus complication status: with unspecified complications Chronic venous insufficiency I87.2 (1) Hyperlipidemia Hyperlipidemia type: unspecified Qualified Code(s): E78.5 - Hyperlipidemia, unspecified (2) Hypertension Hypertension type: essential hypertension Qualified Code(s): I10 - Essential (primary) hypertension (3) Diabetes Diabetes mellitus type: type 2 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
[2019-10-04] MEDS: FUROSEMIDE 20 MG TAB PO SCH (16:58)
[2019-10-04] MEDS: DOCUSATE SODIUM/SENNA 50/8.6MG TAB PO SCH (20:41)
[2019-10-05] MEDS ORDERED: MICONAZOLE NITRATE POWDER 43 GM EXT PRN (00:22)
[2019-10-05 06:01] LABS: Basophils # (auto) 0.01 K/uL (0-0.2); Basophils % (auto) 0.1 %; Eosinophils # (auto) 0.37 K/uL (0-0.5); Eosinophils % (auto) 5.3 %; Hematocrit (blood only) 33.8 % (37-47); Immature Granulocytes # (auto) 0.02 K/uL (0.00-0.02); Immature Granulocytes % (auto) 0.3 %; Lymphocytes # (auto) 2.56 K/uL (1.2-3.4); Lymphocytes % (auto) 36.4 %; Mean Corpuscular Hemoglobin 27.2 pg (25-34); Mean Corpuscular Hgb Conc 32.5 g/dL (32-36); Mean Corpuscular Volume 83.7 fL (80-100); Mean Platelet Volume 8.7 fL (7.4-10.4); Monocytes # (auto) 0.43 K/uL (0.11-0.59); Monocytes % (auto) 6.1 %; Neutrophils # (auto) 3.64 K/uL (1.4-6.5); Neutrophils % (auto) 51.8 %; Platelet Count 196 K/uL (130-400); RDW Coefficient of Variation 14.6 % (11.5-14.5); RDW Standard Deviation 44.9 fL (36.4-46.3); Red Blood Count 4.04 M/uL (4.2-5.4); White Blood Count 7.03 K/uL (4.8-10.8)
[2019-10-05 06:33] LABS: BUN Creatinine Ratio 19.8 (10-20); Calcium 8.6 mg/dl (8.5-10.1); Creatinine Clr Calc Pharmacy 48.2 ml/min; Est GFR (African American) 63.4; Est GFR (Non-African American) 54.7
--- NOTE | 2019-10-05 09:54 | XRay Report ---
XR chest 2V PA/lateral HISTORY: hypoxia COMPARISON: Chest 10/02/2019. FINDINGS: Rotated study. The heart is mildly enlarged. Right greater than left interstitial and vascu lar thickening suggestive of developing asymmetric pulmonary edema. Suspect trace bilateral pleural e ffusions. No pneumothorax. IMPRESSION: 1. Rotated study. 2. Cardiomegaly, trace bilateral pleural effusions, and mild asymmetric pulmonary edema. ACT 112: Negative or not required by law. Electronically signed by: Chino Bryant M.D. 10/05/2019 9:52 AM
[2019-10-05] MEDS: INSULIN ASPART 100 UNITS/ML 3 ML PEN SC SCH ×4 (10:01→21:51)
[2019-10-05] MEDS: lisinopriL 20 MG TAB PO SCH (10:02)
--- NOTE | 2019-10-05 10:02 | Pharmacy Report ---
Glycemic Control Progress Note - Date of Service October 05, 2019 - Scope Glycemic Pharmacist consulted for glycemic control to write orders per [facility] inpatient glycemic control protocol. - Objective Accuchecks BSG(last 24 hours):: 10/04/19 10/04/19 10/04/19 12:19 13:05 17:12 Glucose POC Glucose 141 H 138 H 177 H 10/04/19 10/05/19 10/05/19 21:17 05:46 07:59 Glucose 193 H POC Glucose 185 H 182 H HbA1c:: Hemoglobin A1c 9.5 % (4.5-5.6) H 10/02/19 01:47 - Recent Pertinent Medications The patient is currently receiving: * Basal insulin: Levemir 25 units sq X 1 AROUND NOON 10/04/2019 * Correctional Insulin: Novolog Correction per scale ACHS Goal Range: Low 100 mg/dL - High 150 mg/dL Correction Factor: 20 mg/dL/unit * Prandial insulin: Per carb ratio of 1 unit per 6 grams CHO consumed * Oral Agents: - Outpatient Anti-Diabetic Meds Levemir 25 units qPM plus metformin - Assessment & Plan ASSESSMENT: * See progress note from 10/02/2019 for more background info, in short: * Pt receiving SQ basal bolus insulin regimen for hyperglycemia secondary to baseline DM (outpatient regimen on hold). * Patient is currently receiving an average of 54 units of insulin per day * 25 units of basal insulin * 29 units of prandial/correctional insulin * BSGs ranging 115 - 185 mg/dl over the past 24hrs * Changes needed to insulin regimen: * AM Fasting BSG = 182 mg/dl. This is above goal range for patient based on inpatient targets and co-morbidities. At this point, we are working back to HS dosing. Plan to give Levemir today at dinner since given at lunch yesterday. Will increase slightly to 28 units as patient's fasting was elevated today. * Post-prandial BSGs did trend upwards yesterday. No steroids since 10/02/2019. Will tighten both CF/CR at this point. This will also double to help with Levemir that will be pushed back. * Total daily dose = ~55-60 units. PLAN FOR INPATIENT GLYCEMIC CONTROL: * Oral Agents * Continue to hold outpatient oral diabetes medications. * Basal insulin * Lantus 28 units SQ at dinner tonight * Bolus insulin * NovoLog per scale ACHS or Q6hrs while NPO * Goal Range: Low 110 mg/dL - High 140 mg/dL * Correction Factor: 18 mg/dL/unit * Nutritional / Prandial insulin per carb ratio of 1 unit per 5 grams CHO consumed RECOMMENDATIONS FOR DISCHARGE: * tbd * Please note that the plan above was derived based on current level of insulin resistance and hospital stress. These recommendations are appropriate for inpatient admission only. Plan of care upon discharge will need to be reassessed to avoid potential outpatient hypo/hyperglycemia. Thank you.
[2019-10-05] MEDS: ASPIRIN 81 MG ECTAB PO SCH (10:03)
[2019-10-05] MEDS: ATORVASTATIN 20 MG TAB PO SCH (10:03)
[2019-10-05] MEDS: OXYBUTYNIN CHLORIDE 5 MG TAB PO SCH ×2 (10:04→20:19)
[2019-10-05] MEDS: PARoxetine HCl CONTROLLED REL 12.5 MG TABCR PO SCH (10:04)
[2019-10-05] MEDS: FUROSEMIDE 20 MG TAB PO SCH (10:05)
[2019-10-05] MEDS: ENOXAPARIN INJ 40 MG/0.4 ML SYR SQ SCH (10:05)
[2019-10-05] MEDS ORDERED: FUROSEMIDE 20 MG in SYRINGE 0 ML IV ONE (11:15)
--- NOTE | 2019-10-05 13:18 | Hospitalist Progress Note ---
Date of Service October 05, 2019 Assessment & Plan (1) Closed subcapital fracture of left femur: Closed subcapital fracture of left femur secondary to mechanical fall S/p Left hip percutaneous pinning with cannulated screws 10/03 Continue pain control Hgb with minimal decrease Consulted Dr. Bergman from orthopedic surgery - have signed off (2) Acute on chronic diastolic (congestive) heart failure: Mild Last echo was in December with EF of 70%, congestion on CXR on admission, now with small effusions and asymmetric pulmonary edema Will order 20 mg IV lasix Hopefully will be able to get patient of O2 with removal of some fluid. May have a component of COPD as she was a heavy smoker for many years. (3) Urinary incontinence: continue purewick if needed, moy discontinued (4) Acute left NANCY ischemic stroke: No new findings (5) Depression: Continue home Paroxetine extended release 37.5 mg daily (6) Hyperlipidemia: Atorvastatin 20 mg p.o. daily (7) Hypertension: Continue aspirin, continue lisinopril and furosemide. (8) Diabetes: BSGs ac & hs, ss, lantus A1c 9.5 Pharmacy glycemic consult Diabetic education (9) Chronic venous insufficiency: Resume furosemide Venous doppler neg for DVT Admission and Anticipated Discharge Date Admission Date: October 02, 2019 Anticipated discharge October 06 Subjective Ms. Yoo is feeling very tired today with pain in her hip. She continues to require 1L NC. No cough or cp ROS Constitutional: no chills, aches, sweats or fever Respiratory: no sob,cough, sputum, or wheezing Cardiac: no chest pain, palpitations, edema, orthopnea or lightheadedness GI: no abdominal pain, nausea, vomiting, diarrhea or constipation : no dysuria or hesitancy Extremities: no joint pain or weakness Skin: no rash All other systems reviewed and negative Physical Exam Physical Exam: General: no distress Eyes: normal inspection, PERLL Respiratory: chest non tender, clear to auscultation, normal breath sounds, no respiratory distress, no accessory muscle use Cardiac: regular rate and rhythm, no rub or gallop, no murmur, no edema, no jvd GI/: active bowel sounds, no abd pain or tenderness, soft, non distended Extremities: normal range of motion, normal strength, non tender Neuro/Psych: alert and oriented x 3, normal mood and affect Skin: normal color, dry Results & Data ([facility]) Vital Signs (Past 12 Hours) Vital Signs Temp Pulse Resp BP Pulse Ox 10/05/19 09:58 146/72 H 10/05/19 07:07 36.6 C 78 16 157/77 H 94 PG Care Time/CCT Total # of Minutes Spent Total Time Spent with Patient: Total time spent is greater than 50% in coordination of care (as documented) at patient's floor/unit and/or counseling patient: Coding Level of Care Code 94302 Subseq Hosp Care Lvl 3 Diagnoses Closed subcapital fracture of left femur S72.012A Acute on chronic diastolic (congestive) heart failure I50.33 Urinary incontinence R32 Acute left NANCY ischemic stroke I63.522 Depression F32.9 Hyperlipidemia E78.5 Hyperlipidemia type: unspecified Hypertension I10 Hypertension type: essential hypertension Diabetes E11.8 Diabetes mellitus complication status: with unspecified complications 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: unspecified buttermilk drier operator insulin use status Diabetes mellitus type: type 2 Chronic venous insufficiency I87.2 (1) Diabetes Diabetes mellitus complication status: with unspecified complications Diabetes mellitus penitentiary insulin use: unspecified buttermilk drier operator insulin use status Diabetes mellitus type: type 2 Qualified Code(s): E11.8 - Type 2 diabetes mellitus with unspecified complications (2) Hyperlipidemia Hyperlipidemia type: unspecified Qualified Code(s): E78.5 - Hyperlipidemia, unspecified (3) Hypertension Hypertension type: essential hypertension Qualified Code(s): I10 - Essential (primary) hypertension
[2019-10-05] MEDS: ACETAMINOPHEN 325 MG TAB PO PRN ×2 (15:57→21:49)
[2019-10-05] MEDS: OXYCODONE HCL IR 5 MG TAB (IMMEDIATE RELEASE) PO PRN ×2 (15:58→21:50)
[2019-10-05] MEDS ORDERED: INSULIN DETEMIR FLEXPEN/FLEX TOUCH 100 UNITS/ML 3ML SC SCH (17:00)
[2019-10-05] MEDS: DOCUSATE SODIUM/SENNA 50/8.6MG TAB PO SCH (20:18)
[2019-10-06 05:36] LABS: Basophils # (auto) 0.01 K/uL (0-0.2); Basophils % (auto) 0.1 %; Eosinophils # (auto) 0.31 K/uL (0-0.5); Eosinophils % (auto) 4.3 %; Hematocrit (blood only) 38.4 % (37-47); Hemoglobin 12.2 g/dL (12.0-16.0); Immature Granulocytes # (auto) 0.01 K/uL (0.00-0.02); Immature Granulocytes % (auto) 0.1 %; Lymphocytes # (auto) 3.12 K/uL (1.2-3.4); Lymphocytes % (auto) 43.8 %; Mean Corpuscular Hemoglobin 26.8 pg (25-34); Mean Corpuscular Hgb Conc 31.8 g/dL (32-36); Mean Corpuscular Volume 84.2 fL (80-100); Monocytes # (auto) 0.55 K/uL (0.11-0.59); Monocytes % (auto) 7.7 %; Neutrophils # (auto) 3.13 K/uL (1.4-6.5); Platelet Count 208 K/uL (130-400); RDW Coefficient of Variation 14.7 % (11.5-14.5); Red Blood Count 4.56 M/uL (4.2-5.4); White Blood Count 7.13 K/uL (4.8-10.8)
[2019-10-06 06:03] LABS: BUN Creatinine Ratio 26.3 (10-20); Calcium 8.9 mg/dl (8.5-10.1); Creatinine Clr Calc Pharmacy 47.3 ml/min; Est GFR (African American) 61.9; Est GFR (Non-African American) 53.4; Potassium 4.3 mmol/L (3.5-5.1)
[2019-10-06] MEDS ORDERED: FUROSEMIDE 20 MG in SYRINGE 0 ML IV ONE (08:04)
[2019-10-06] MEDS ORDERED: POLYETHYLENE (MIRALAX) 17 GM PACK PO ONE (08:06)
--- NOTE | 2019-10-06 09:27 | Discharge Summary ---
Date of Service October 06, 2019 Admission HPI Per Admitting Provider The patient is a 74-year-old female with a past medical history including chronic venous insufficiency, urinary incontinence, B12 deficiency, hyperbilirubinemia, acute left NANCY ischemic stroke, depression, hyperlipidemia, hypertension and diabetes. She reports that she was reaching for a handle, lost control and could not find things stabilize her cell phone, and fell backwards and landed on her left hip, developing immediate pain. Work-up at the emergency department at [facility] included x-rays which showed a left subcapital femoral fracture, and she was transferred to [facility] for fur ther treatment. Principal Diagnosis Hip fracture Discharge Exam Constitutional WD/WN, vitals as above Respiratory normal respiratory effort, lungs clear to auscultation Cardiovascular RRR, no murmur, no edema Gastrointestinal (Abdomen) Inspection/Auscultation: abdomen normal to inspection and normal bowel sounds; abdomen not distended Percussion/Palpation: abdomen soft; abdomen nontender Musculoskeletal no cyanosis or clubbing, extremities motor strength 5/5 Skin no rashes, warm and dry Neurologic moves all extremities and awake Psychiatric A+Ox3, euthymic affect Discharge Data Allergies Allergy/AdvReac Type Severity Reaction Status Date / Time ciprofloxacin [From Cipro] Allergy Unknown Verified 06/24/19 16:33 Penicillins Allergy Unknown Verified 06/24/19 16:33 SURGICAL TAPE Allergy Unknown Uncoded 06/24/19 16:33 Consultations 10/02/19 01:32 Consult Case Management - Discharge Planning Routine 10/02/19 01:35 Consult Case Management - Discharge Planning Routine Consult Orthopedic Surgery Routine 10/02/19 18:30 Consult Case Management - Discharge Planning Routine Procedures Performed Operation Date: 10/02/19 11:30 Actual Procedures p Left hip percutaneous pinning with cannulated screws(Left) - Austen Ribeiro DO Ordered Studies 10/02/19 FL fluoroscopy <1hr Routine FL hip LT 1V Routine 10/02/19 14:30 US venous doppler LE BI Stat Hospital Course (1) Closed subcapital fracture of left femur: Closed subcapital fracture of left femur secondary to mechanical fall S/p Left hip percutaneous pinning with cannulated screws 10/03 Continue pain control Hgb with minimal decrease Enoxaparin for DVT proph Consulted Dr. Bergman from orthopedic surgery - have signed off (2) Acute on chronic diastolic (congestive) heart failure: Mild Last echo was in December with EF of 70%, congestion on CXR on admission, now with small effusions and asymmetric pulmonary edema Lasix given x2 with improved CXR Hopefully will be able to get patient of O2 with removal of some fluid. May have a component of COPD as she was a heavy smoker for many years. Follow up pcp, may want to consider PFTs (3) Urinary incontinence: Mcclure discontinued (4) Acute left NANYC ischemic stroke: No new findings (5) Depression: Continue home Paroxetine extended release 37.5 mg daily (6) Hyperlipidemia: Atorvastatin 20 mg p.o. daily (7) Hypertension: Continue aspirin, continue lisinopril and furosemide. (8) Diabetes: BSGs ac & hs, ss, lantus A1c 9.5 Pharmacy glycemic consult Diabetic education Follow up with pcp for further recommendations for better bsg control (9) Chronic venous insufficiency: Resume furosemide po Venous doppler neg for DVT Total Time Total Time Spent Total Time Spent (In Minutes): greater than 30 minutes Discharge Plan Discharge Items Patient Disposition: Transfer [facility] Reason For Visit: LEFT SUBCAPITAL FEMORAL FRACTURE Discharge Diagnosis: Left Subcapital Femur Fracture Activity: Per Instructions section Weightbearing: Left toe touch Weightbearing Comment: Toe touch weight bearing on the left foot with use of walker. Non-emergency contact: Surgeon Call non-emergency contact if: your pain is not controlled, your temperature is above 101.5, your wound has increased redness and your wound has increased drainage Follow-up/Referrals: Daniela Neves DO [Primary Care Provider] - Diet: Carb Consistent or DM2 Addtl Attending Provider Instructions: (1) Closed subcapital fracture of left femur: Closed subcapital fracture of left femur secondary to mechanical fall Status post Left hip percutaneous pinning with cannulated screws 2/20 Enoxaparin for DVT prophylaxis Consulted Dr. Bergman from orthopedic surgery - follow up with his office (2) Acute on chronic diastolic (congestive) heart failure: Mild Last echo was in December with an ejection fraction of 70%, Congestion on CXR on admission, now with small effusions and asymmetric pulmonary edema on repeat Given 20 mg IV lasix x2 days - now net negative fluid balance with improved CXR, effusions have resolved Requiring 1 liter nasal cannula oxygen. Drops to about 89% on room air. May have a component of COPD due to heavy smoking for many years. May want to follow up with a lithographic proofer to have further workup for COPD such as pulmonary function testing (3) History of left NANCY ischemic stroke: No new findings (4) Depression: Continue home Paroxetine extended release 37.5 mg daily (5) Hyperlipidemia: Atorvastatin 20 mg p.o. daily (7) Hypertension: Continue aspirin, continue lisinopril and furosemide. (8) Diabetes: A1c was 9.5 Diabetic education provided Please follow up with your primary care provider to adjust your diabetic medications for better control of your bsgs (9) Chronic venous insufficiency: Resume furosemide as needed for leg edema Venous doppler neg for DVT Addtl Montessori Paraprofessional Provider Instructions: [facility] DISCHARGE INSTRUCTIONS: HIP FRACTURE SELF CARE INSTRUCTIONS: A. You are to ambulate with a walker or crutches for approximately 6 weeks. B. You are to be TOE TOUCH WEIGHT BEARING on your operative lower extremity for at least 6 weeks. C. Wear low heeled shoes with non-slip soles D. Be sure that your floors are free of things that could trip you throw rugs, electrical cords, and small objects. Avoid wet and waxed floors, especially with crutches/walker/cane. E. Try to walk several times a day with rest periods between. F. You may shower 48 hours after surgery and get the incision area wet, but DO NOT soak or submerge incision area in water. (No baths, swimming pools, hot tubs) G. You may have a large, band-aid like dressing over your incision (Aquacel). This will remain on your incision for 7 days, and then can be removed. You CAN shower with this on. If incision is leaking through the dressing, please call the office . H. Do NOT apply soap or any ointment/lotions directly over incision. I. You may use ice as needed to operative site. SPECIAL CARE INSTRUCTIONS: VERY IMPORTANT TO READ AND REVIEW A. You may be at risk for phlebitis or blood clots. a. Wear surgical stockings (CANDICE hose) for 2 weeks after surgery to improve circulation and reduce swelling. b. Take LOVENOX 40mg SQ daily for 4 weeks or as directed. This is your blood thinner. . B. There are a few signs you need to watch for after you are home. Call [facility] at [phone] if you experience any of the following: a. If you have a temperature of 101 degrees or higher. b. Sudden increase in pain in your hip not relieved by rest or pain medication. c. Any fluid or drainage from the incision; redness of the incision. d. Shortness of breath or chest pain. C. Call your physician if: a. Temperature is greater than 101 degrees (F). b. Pain is not relieved by prescribed pain medications. c. Increase drainage or redness from incision. d. Unanswered questions or concerns. D. Pain Medication: a. You will be prescribed pain medication upon discharge that should last till your first post-operative appointment. b. If you experience nausea and/or skin rash, discontinue this medication and contact our office for an alternative medication. c. Caution- narcotic pain medication can cause constipation. FOLLOW UP VISIT: Please call [facility] at [phone] to schedule a follow up appointment 10-[address] Ribeiro from the day of your surgery date. Pending Studies at Discharge: No Stand-Alone Forms: My [facility] [email or web address], Opioid Pain Management Skilled Items Patient informed of condition?: Yes DNR: No Discharge Level of Care: Skilled Communicable Disease: No Discharge Prognosis: Stable Lines: None Urinary Catheter: No Medications and DC Order Prescriptions: New enoxaparin 40 mg/0.4 mL Syringe 40 mg subcut Q24H Qty: 30 RF: 0 acetaminophen [Mapap (acetaminophen)] 325 mg Tablet 650 mg PO Q6H PRN (Reason: pain) Qty: 30 RF: 0 sennosides-docusate sodium [Senokot-S] 8.6-50 mg Tablet 2 tab PO HS Qty: 60 RF: 0 bisacodyl [Laxative (bisacodyl)] 10 mg Suppository 10 mg [place] DAILY PRN (Reason: constipation) Qty: 30 RF: 0 oxycodone 5 mg Tablet 5 mg PO Q4H PRN (Reason: pain) Qty: 20 RF: 0 Continued furosemide 20 mg tablet See Rx Instructions .ROUTE .COMPLEX Qty: 30 RF: 1 atorvastatin 20 mg tablet 20 mg PO DAILY Qty: 90 RF: 1 metformin 500 mg tablet 500 mg PO BID Qty: 180 RF: 1 aspirin [Aspir-81] 81 mg tablet,delayed release (DR/EC) 81 mg PO DAILY Qty: 90 RF: 1 fexofenadine [Nina Allergy] 180 mg tablet 180 mg PO DAILY Qty: 90 RF: 1 lisinopril 20 mg tablet 20 mg PO DAILY Qty: 90 RF: 1 oxybutynin chloride 5 mg tablet 5 mg PO BID Qty: 180 RF: 1 paroxetine HCl [Paxil CR] 37.5 mg tablet extended release 24 hr 37.5 mg PO DAILY Qty: 90 RF: 1 nystatin 100,000 unit/gram powder 1 appln TOP BID Qty: 60 RF: 5 mecobalamin (vitamin B12) 1,000 mcg tablet,disintegrating 1,000 mcg PO DAILY RF: 0 Levemir FlexTouch U-100 Insuln 100 unit/mL (3 mL) insulin pen 25 units subcut HS RF: 0 Discharge Orders: Discharge Order (Routine); Ordered 10/06/19 Ordered By: Maryjane Snider/Other Patient Handouts: Surgery Prevent DVT After Admission Data Admit Date/Time: 10/02/19 01:29 Attending Provider: Delon Irving Admit Provider: Gamaliel Doshi Primary Care Provider: Daniela Neves Other Providers: Austen Ribeiro Other Interventions: Discharge Summary Assessment (RN) Last Done: 10/06/19 14:58 DC Date/Time DO NOT enter until pt leaves facility: 10/06/19 15:51 Supervising Physician Co-Signing Physician Notes I supervised Maryjane Fuentes NP on this patient's care. I examined the patient today independently of her. I discussed the plan of care with her with the plan being as written in her note except for any following changes/exceptions: None. Doing well today. No major concerns. CXR has improved from prior and she is not short of breath. Coding Level of Care Code D/C Day Management >30 mins Diagnoses Closed subcapital fracture of left femur S72.012A Acute on chronic diastolic (congestive) heart failure I50.33 Urinary incontinence R32 Acute left NANCY ischemic stroke I63.522 Depression F32.9 Hyperlipidemia E78.5 Hyperlipidemia type: unspecified Hypertension I10 Hypertension type: essential hypertension Diabetes E11.8 Diabetes mellitus complication status: with unspecified complications Diabetes mellitus terminal supervisor insulin use: unspecified penitentiary insulin use status Diabetes mellitus type: type 2 Chronic venous insufficiency I87.2
[2019-10-06] MEDS: ATORVASTATIN 20 MG TAB PO SCH (09:30)
[2019-10-06] MEDS: OXYBUTYNIN CHLORIDE 5 MG TAB PO SCH (09:30)
[2019-10-06] MEDS: ASPIRIN 81 MG ECTAB PO SCH (09:31)
[2019-10-06] MEDS: PARoxetine HCl CONTROLLED REL 12.5 MG TABCR PO SCH (09:31)
[2019-10-06] MEDS: ENOXAPARIN INJ 40 MG/0.4 ML SYR SQ SCH (09:32)
[2019-10-06] MEDS: lisinopriL 20 MG TAB PO SCH (09:34)
[2019-10-06] MEDS: INSULIN ASPART 100 UNITS/ML 3 ML PEN SC SCH ×2 (09:39→13:27)
--- NOTE | 2019-10-06 10:27 | XRay Report ---
XR chest 2V PA/lateral CLINICAL HISTORY: chf dyspnea COMPARISON STUDY: 10/05/2019 FINDINGS: Improving components of congestive heart failure. Pulmonary vasculature is diminished. Diap hragms are smooth. IMPRESSION: Improving congestive heart failure ACT 112: Negative or not required by law. The above report was generated using voice recognition software. It may contain grammatical, syntax or spelling errors. Electronically signed by: Abhay Abbott M.D. 10/06/2019 10:25 AM
[2019-10-06] MEDS: OXYCODONE HCL IR 5 MG TAB (IMMEDIATE RELEASE) PO PRN (15:07)
== END 2019-10-06 15:51 | DRG 480 ==
LOC: SUATTDRO 23:51 → 3N 23:51

== ENCOUNTER 2022-08-04 18:23 | Inpatient (IN) ==
--- NOTE | 2022-08-04 18:48 | Emergency Department Note ---
History of Present Illness General Chief complaint: Referred by Doctor Stated complaint: REF BY DOC, LOW OXYGEN LEVEL, FLUID IN LUNGS Time Seen by Provider: 08/04/22 18:32 History of Present Illness 77-year-old female presents to the ED with a chief complaint of decreased oxygen saturations and some " fluid in the lungs". The patient denies any specific complaints at this time. She denies any shortness of breath, fevers or pains. The daughter reports that a home health nurse checked her vital signs today and she was hypoxic at home. They reported oxygen saturations in the 70s. Patient symptoms are worse with exertion Home Medications Medication Instructions Recorded Confirmed Type blood-glucose meter (OneTouch #1 ea 07/19/21 07/15/22 Rx Ultra2 Meter kit) blood sugar diagnostic (OneTouch #100 ea 09/23/21 07/15/22 Rx Ultra Test strips) lancets 33 gauge (OneTouch Delica #100 ea 09/23/21 07/15/22 Rx Lancets) mecobalamin (vitamin B12) 1,000 1,000 mcg PO QAM 11/29/21 08/04/22 History mcg disintegrating tablet,sublingual famotidine 20 mg tablet 20 mg PO DAILY #90 tabs 12/08/21 08/04/22 Rx incontinence pad, liner, disp #400 ea 01/05/22 07/15/22 Rx (Affirm Pads) atorvastatin 20 mg tablet 20 mg PO QPM #90 tabs 02/08/22 08/04/22 Rx furosemide 20 mg tablet 20 mg PO QAM #90 tabs 02/08/22 08/04/22 Rx Wheelchair (Manual) #1 ea 02/23/22 07/15/22 Rx cetirizine 10 mg tablet 10 mg PO DAILY #90 tabs 03/24/22 08/04/22 Rx omeprazole 40 mg capsule,delayed 40 mg PO DAILY #90 caps 04/21/22 08/04/22 Rx release carvedilol 6.25 mg tablet (Coreg) 6.25 mg PO BID #180 tabs 05/04/22 08/04/22 Rx apixaban 5 mg tablet (Eliquis) 5 mg PO BID #180 tabs 05/05/22 08/04/22 Rx lisinopril 20 mg tablet 20 mg PO QAM #90 tabs 05/23/22 08/04/22 Rx mirabegron 50 mg tablet,extended 50 mg PO QAM #90 tabs 05/23/22 08/04/22 Rx release 24 hr (Myrbetriq) pen needle, diabetic 31 gauge x #100 ea 05/23/22 07/15/22 Rx 3/16" (BD Ultra-Fine Mini Pen Needle) potassium chloride 10 mEq 10 meq PO QAM #90 tabs 06/06/22 08/04/22 Rx tablet,extended release Mattress (Air or other) #1 ea 06/29/22 07/15/22 Rx diaper,brief,adult,disposable #60 ea 06/29/22 07/15/22 Rx (Comfort Shield Adult Diaper) ondansetron HCl 4 mg tablet 4 mg PO Q6H PRN Nausea #10 tabs 07/20/22 08/04/22 Rx Paxil CR 25 mg tablet,extended 50 mg PO QAM 90 days #180 tabs 07/25/22 08/04/22 Rx release (paroxetine HCl) insulin detemir U-100 100 unit/mL 14 unit (0.14 mL) subcut BID #15 mL 07/25/22 08/04/22 Rx (3 mL) subcutaneous pen (Levemir FlexTouch U-100 Insulin) [id number]-pjascpki-niydfu tablet 1 tab PO DAILY 08/04/22 08/04/22 History Allergies Allergy/AdvReac Type Severity Reaction Status Date / Time pineapple Allergy Intermediate Swelling Verified 05/05/22 14:29 ciprofloxacin [From Cipro] Allergy Unknown Unknown Verified 05/05/22 14:29 Penicillins Allergy Unknown Unknown Verified 05/05/22 14:29 SURGICAL TAPE Allergy Unknown SKIN Uncoded 05/05/22 14:29 IRRITATION Past Med/Surg History Medical History Atrial fibrillation [facility] 10/16/2021-PLACED ON ELIQUIS F/U DR CHAUDHARY Avascular necrosis of bone of left hip 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-REMOVED WITH HYSTERECTOMY Cholecystitis DRAIN TUBE IN PLACE FROM GALL BLADDER Chronic venous insufficiency COVID-19 [facility] 08/18/2021-PNEUMONIA Dementia Depression Diabetes IDDM Diastolic CHF GERD (gastroesophageal reflux disease) GERD without esophagitis History of CVA (cerebrovascular accident) L NANCY ischemic stroke 12/2018 History of gastroesophageal reflux (GERD) Hyperlipidemia Hypertension Osteoporosis Urinary incontinence Surgical History History of surgical removal of skin lesion from buttock Hx laparoscopic cholecystectomy (12/01/21) Robotic Laparoscopic Cholecystectomy, robotic laparoscopic lysis of adhesions applicable) - Jc Smith DO, FACS S/P cataract surgery S/P hysterectomy S/P ORIF (open reduction internal fixation) fracture (09/2019) L hip S/P tonsillectomy Status post surgery tumor excision Status post surgery (07/2016) L finger tip removal d/t osteomyelitis Family History Mother Throat cancer Ovarian cancer Breast cancer Mouth cancer Father Heart disease Myocardial infarction Cancer Daughter Diabetes Breast cancer Family history of reaction to anesthesia PONV Other Coronary heart disease Denies family history of Colon cancer Prostate cancer Social History Smoking Status: Current every day smoker Second Hand Exposure: No; Hx Alcohol Use: No Hx Substance Use: No Preferred Language: Slovenian Communication Ability: Effective Visual Impairment: Partially Limited Hearing Ability: Normal Optimization Manager Required: No Beliefs That Will Affect Care: None marital status: / Current Living Situation: Family current occupational status: retired How many Children do You have: 5 Feels Safe at Home: Yes Safety Concerns Comment: DIFFICULTY WALKING DUE LOOSE LEFT HIP PROSTHESIS/DEMENTIA Diet Comment: regular caffeine: No during the past year weight has: decreased > 10 lbs Dental Care, Regularly: No Physical Activity Frequency: Does not Exercise Seatbelt Use: always Sunscreen Use: No Assistive Devices: Glasses, Walker and Wheelchair Review of Systems A total of 10 systems reviewed and were otherwise negative Physical Exam Vital Signs Vital Signs - 24 hr 08/04/22 18:25 08/04/22 18:44 08/04/22 18:55 Temperature 36.4 C L Temperature Source Temporal Artery Scan Pulse Rate 81 78 Pulse Rate [Right Finger] 80 Pulse Rate from SpO2 Sensor Pulse Rhythm Regular Regular Pulse Rhythm [Right Finger] Regular Pulse Strength [Right Finger] Normal Respiratory Rate Respiratory Effort / Characteristics Non-Labored Spontaneous Non-Labored Spontaneous Respiratory Depth Normal Normal Respiratory Pattern Regular Blood Pressure 170/139 H Blood Pressure [Right Arm] 106/52 L Blood Pressure Mean 149 Blood Pressure Mean [Right Arm] 70 Blood Pressure Position [Right Arm] Lying Pulse Oximetry 90 88 L 97 Oxygen Delivery Method Room Air Room Air Nasal Cannula Oxygen Flow Rate 3 Sepsis Recent Fever Within 48 Hours No Sepsis New/Unexplained Change in Mental Status No Sepsis Action Taken by Nursing No Action Required 08/04/22 19:06 08/04/22 19:15 08/04/22 18:49 Temperature Temperature Source Pulse Rate 77 Pulse Rate [Right Finger] 79 78 Pulse Rate from SpO2 Sensor 77 Pulse Rhythm Pulse Rhythm [Right Finger] Pulse Strength [Right Finger] Respiratory Rate 21 16 20 Respiratory Effort / Characteristics Respiratory Depth Respiratory Pattern Blood Pressure Blood Pressure [Right Arm] 106/52 L 129/79 Blood Pressure Mean Blood Pressure Mean [Right Arm] 70 95 Blood Pressure Position [Right Arm] Pulse Oximetry 97 95 97 Oxygen Delivery Method Nasal Cannula Nasal Cannula Oxygen Flow Rate 2 2 Sepsis Recent Fever Within 48 Hours Sepsis New/Unexplained Change in Mental Status Sepsis Action Taken by Nursing 08/04/22 18:50 08/04/22 19:00 08/04/22 19:10 Temperature Temperature Source Pulse Rate 79 79 77 Pulse Rate [Right Finger] Pulse Rate from SpO2 Sensor 79 79 77 Pulse Rhythm Pulse Rhythm [Right Finger] Pulse Strength [Right Finger] Respiratory Rate 24 23 21 Respiratory Effort / Characteristics Respiratory Depth Respiratory Pattern Blood Pressure Blood Pressure [Right Arm] Blood Pressure Mean Blood Pressure Mean [Right Arm] Blood Pressure Position [Right Arm] Pulse Oximetry 97 97 97 Oxygen Delivery Method Oxygen Flow Rate Sepsis Recent Fever Within 48 Hours Sepsis New/Unexplained Change in Mental Status Sepsis Action Taken by Nursing 08/04/22 19:20 08/04/22 19:20 08/04/22 19:30 Temperature Temperature Source Pulse Rate 76 80 Pulse Rate [Right Finger] Pulse Rate from SpO2 Sensor 80 81 Pulse Rhythm Pulse Rhythm [Right Finger] Pulse Strength [Right Finger] Respiratory Rate 14 24 Respiratory Effort / Characteristics Respiratory Depth Respiratory Pattern Blood Pressure 129/79 Blood Pressure [Right Arm] Blood Pressure Mean 95 Blood Pressure Mean [Right Arm] Blood Pressure Position [Right Arm] Pulse Oximetry 96 96 Oxygen Delivery Method Oxygen Flow Rate Sepsis Recent Fever Within 48 Hours Sepsis New/Unexplained Change in Mental Status Sepsis Action Taken by Nursing 08/04/22 19:40 08/04/22 19:50 08/04/22 20:00 Temperature Temperature Source Pulse Rate 79 80 94 H Pulse Rate [Right Finger] Pulse Rate from SpO2 Sensor 81 80 79 Pulse Rhythm Pulse Rhythm [Right Finger] Pulse Strength [Right Finger] Respiratory Rate 20 21 17 Respiratory Effort / Characteristics Respiratory Depth Respiratory Pattern Blood Pressure Blood Pressure [Right Arm] Blood Pressure Mean Blood Pressure Mean [Right Arm] Blood Pressure Position [Right Arm] Pulse Oximetry 96 96 97 Oxygen Delivery Method Oxygen Flow Rate Sepsis Recent Fever Within 48 Hours Sepsis New/Unexplained Change in Mental Status Sepsis Action Taken by Nursing 08/04/22 20:10 08/04/22 20:20 08/04/22 20:30 Temperature Temperature Source Pulse Rate 83 79 87 Pulse Rate [Right Finger] Pulse Rate from SpO2 Sensor 78 79 84 Pulse Rhythm Pulse Rhythm [Right Finger] Pulse Strength [Right Finger] Respiratory Rate 15 23 18 Respiratory Effort / Characteristics Respiratory Depth Respiratory Pattern Blood Pressure Blood Pressure [Right Arm] Blood Pressure Mean Blood Pressure Mean [Right Arm] Blood Pressure Position [Right Arm] Pulse Oximetry 95 93 88 L Oxygen Delivery Method Oxygen Flow Rate Sepsis Recent Fever Within 48 Hours Sepsis New/Unexplained Change in Mental Status Sepsis Action Taken by Nursing 08/04/22 20:40 08/04/22 20:50 08/04/22 21:00 Temperature Temperature Source Pulse Rate 81 79 95 H Pulse Rate [Right Finger] Pulse Rate from SpO2 Sensor 81 79 82 Pulse Rhythm Pulse Rhythm [Right Finger] Pulse Strength [Right Finger] Respiratory Rate 19 21 17 Respiratory Effort / Characteristics Respiratory Depth Respiratory Pattern Blood Pressure Blood Pressure [Right Arm] Blood Pressure Mean Blood Pressure Mean [Right Arm] Blood Pressure Position [Right Arm] Pulse Oximetry 90 98 99 Oxygen Delivery Method Oxygen Flow Rate Sepsis Recent Fever Within 48 Hours Sepsis New/Unexplained Change in Mental Status Sepsis Action Taken by Nursing 08/04/22 21:42 08/04/22 21:49 08/04/22 21:49 Temperature Temperature Source Pulse Rate Pulse Rate [Right Finger] Pulse Rate from SpO2 Sensor 39 L 92 H Pulse Rhythm Pulse Rhythm [Right Finger] Pulse Strength [Right Finger] Respiratory Rate 23 Respiratory Effort / Characteristics Respiratory Depth Respiratory Pattern Blood Pressure 107/67 Blood Pressure [Right Arm] Blood Pressure Mean 80 Blood Pressure Mean [Right Arm] Blood Pressure Position [Right Arm] Pulse Oximetry 92 92 Oxygen Delivery Method Oxygen Flow Rate Sepsis Recent Fever Within 48 Hours Sepsis New/Unexplained Change in Mental Status Sepsis Action Taken by Nursing CONSTITUTIONAL/VITAL SIGNS: Reviewed / noted above. GENERAL: Non-toxic in appearance. INTEGUMENTARY: Warm, dry, and [place]. HEAD: Normocephalic. EYES: without scleral icterus or trauma. ENT/OROPHARYNX: clear and moist. LYMPHADENOPATHY/NECK: Is supple without lymphadenopathy or meningismus. RESPIRATORY: diminished with crackles to auscultation bilaterally. No increased work of breathing. CARDIOVASCULAR: Regular rate and rhythm. GI/ABDOMEN: Soft and nontender. No organomegaly or pulsatile mass. EXTREMITIES: Warm and well perfused. BACK: No CVA tenderness. NEUROLOGICAL: Intact without focal deficits. PSYCHIATRIC: normal affect. MUSCULOSKELETAL: Normally developed with good muscle tone. TRIAGE NURSING DOCUMENTATION REVIEWED. Course Administered Medications Discontinued Medications Cefepime HCl (Maxipime) 2,000 mg in 20 mls @ 5 mls/min IV NOW STA; Protocol Stop: 08/04/22 22:28 Last Admin: 08/04/22 22:33 Dose: 5 mls/min Documented By: COLEEN Ioversol (Optiray 320 500ml) 118 ml IV ONCE ONE Stop: 08/04/22 21:42 Last Admin: 08/04/22 21:41 Dose: 118 ml Documented By: YARI Lorazepam (Lorazepam 2 Mg/1 Ml Vial) 1 mg IV NOW STA Stop: 08/04/22 21:09 Last Admin: 08/04/22 21:18 Dose: 1 mg Documented By: COLEEN Medical Decision Making Differential Diagnosis The differential was considered includes acute myocardial infarction, acute coronary syndrome, myocarditis, pericarditis, pericardial effusions /tamponad, esophageal perforation, pulmonary embolism, pneumonia, pneumothorax, cardiomyopathy, congestive heart, anemia , COPD/asthma exacerbation. Medical Records Attestation: I reviewed the patient's medical records. Home Medications Current Medication List: was personally reviewed by me Laboratory Data Attestation: I reviewed the patient's lab results. Result diagrams: 08/04/22 19:00 08/04/22 19:00 Lab Results 08/04/22 08/04/22 08/04/22 Range/Units 18:43 19:00 19:00 WBC 8.68 (4.8-10.8) K/ul RBC 3.96 (3.93-5.22) M/uL Hgb 10.7 L (12.0-16.0) g/dl Hct 33.1 L (34.1-44.9) % MCV 83.6 (80.0-100.0) fL MCH 27.0 (25.0-34.0) pg MCHC 32.3 (32.0-36.0) g/dL RDW Std Deviation 38.6 (36.4-46.3) fL RDW Coeff of Catherine 12.6 (11.5-14.5) % Plt Count 226 (130-400) K/uL MPV 9.4 (9.4-12.3) fL Immature Gran % (Auto) 0.5 % Neut % (Auto) 67.2 % Lymph % (Auto) 23.5 % Gooding % (Auto) 5.5 % Eos % (Auto) 3.1 % Baso % (Auto) 0.2 % Neut # (Auto) 5.83 (1.4-6.5) K/uL Lymph # (Auto) 2.04 (1.2-3.4) K/uL Gooding # (Auto) 0.48 (0.24-0.82) K/uL Eos # (Auto) 0.27 (0-0.50) K/uL Baso # (Auto) 0.02 (0-0.2) K/uL Immature Gran # (Auto) 0.04 H (0.00-0.02) K/uL Sodium 137 (136-145) mmol/L Potassium 3.8 (3.5-5.1) mmol/L Chloride 102 (98-107) mmol/L Carbon Dioxide 27 (21-32) mmol/L Anion Gap 8 (3-11) BUN 30 H (6-23) mg/dl Creatinine 1.11 (0.6-1.2) mg/dl Est Cr Clr Drug Dosing 41.7 ml/min Est GFR ( Amer) 54.7 ml/min Est GFR (Non-Af Amer) 47.2 ml/min BUN/Creatinine Ratio 27.0 H (10-20) Glucose 217 H (70-99(Fasting)) mg/dl Lactate (0.4-2.0) mmol/L Calcium 9.0 (8.5-10.1) mg/dl Magnesium 1.5 L (1.7-2.4) mg/dl Total Bilirubin 0.8 (0.2-1.0) mg/dl Direct Bilirubin 0.2 (0-0.2) mg/dl AST 9 L (13-39) U/L ALT 5 L (7-52) U/L Alkaline Phosphatase 148 H (34-104) U/L Troponin I High Sens 14.0 (0-14) pg/ml Total Protein 6.6 (6.0-8.3) gm/dl Albumin 3.3 L (3.4-5.0) gm/dl Procalcitonin (0-0.5) ng/ml SARS-CoV-2 (PCR) NEGATIVE (Negative) Influenza Type A (PCR) Negative (Neg) Influenza Type B (PCR) Negative (Neg) RSV (RT-PCR) Negative (Neg) 08/04/22 08/04/22 Range/Units 19:00 19:00 WBC (4.8-10.8) K/ul RBC (3.93-5.22) M/uL Hgb (12.0-16.0) g/dl Hct (34.1-44.9) % MCV (80.0-100.0) fL MCH (25.0-34.0) pg MCHC (32.0-36.0) g/dL RDW Std Deviation (36.4-46.3) fL RDW Coeff of Catherine (11.5-14.5) % Plt Count (130-400) K/uL MPV (9.4-12.3) fL Immature Gran % (Auto) % Neut % (Auto) % Lymph % (Auto) % Gooding % (Auto) % Eos % (Auto) % Baso % (Auto) % Neut # (Auto) (1.4-6.5) K/uL Lymph # (Auto) (1.2-3.4) K/uL Gooding # (Auto) (0.24-0.82) K/uL Eos # (Auto) (0-0.50) K/uL Baso # (Auto) (0-0.2) K/uL Immature Gran # (Auto) (0.00-0.02) K/uL Sodium (136-145) mmol/L Potassium (3.5-5.1) mmol/L Chloride (98-107) mmol/L Carbon Dioxide (21-32) mmol/L Anion Gap (3-11) BUN (6-23) mg/dl Creatinine (0.6-1.2) mg/dl Est Cr Clr Drug Dosing ml/min Est GFR ( Amer) ml/min Est GFR (Non-Af Amer) ml/min BUN/Creatinine Ratio (10-20) Glucose (70-99(Fasting)) mg/dl Lactate 0.8 (0.4-2.0) mmol/L Calcium (8.5-10.1) mg/dl Magnesium (1.7-2.4) mg/dl Total Bilirubin (0.2-1.0) mg/dl Direct Bilirubin (0-0.2) mg/dl AST (13-39) U/L ALT (7-52) U/L Alkaline Phosphatase (34-104) U/L Troponin I High Sens (0-14) pg/ml Total Protein (6.0-8.3) gm/dl Albumin (3.4-5.0) gm/dl Procalcitonin 0.94 H (0-0.5) ng/ml SARS-CoV-2 (PCR) (Negative) Influenza Type A (PCR) (Neg) Influenza Type B (PCR) (Neg) RSV (RT-PCR) (Neg) Imaging Data My Impression: Chest x-ray: Per my review there is a right lower lobe infiltrate. Radiologist's Impression: Chest X-Ray 08/04/22 18:40 XR chest 1V portable CLINICAL HISTORY: Sepsis TECHNIQUE: Single frontal radiograph of the chest was obtained. Comparison: Comparison is made to chest radiograph 07/26/2022 FINDINGS: No lines and tubes are seen. Cardiomegaly is noted. The aortic arch is calcified. Prominence and cephalization of the vasculature is seen. No evidence of pleural effusion or pneumothorax. IMPRESSION: Cardiomegaly and mild pulmonary edema. ACT 112: Negative or not required by law. Electronically signed by: Higinio Barba M.D. 08/04/2022 7:42 PM ECG Data Attestation: I personally reviewed and interpreted this ECG as follows: Additional Comments: Twelve-lead EKG: Per my interpretation shows a normal sinus rhythm at a rate of 78. No ST elevation. No PVCs. Normal QTC MDM Narrative 77-year-old female presents with hypoxia at home. She does not have a specific complaints although she is hypoxic here with a saturation of 88% on room air. Lungs have crackles bilaterally. She does have a history of CHF. The daughter reports a cough and recent head cold. That started on Monday. Chest x-ray and CT scan suggested right lower lobe infiltrate. Procalcitonin level was elevated slightly. CBC and chemistry panel was unremarkable. Flu and COVID are negative. The patient was given some IV lorazepam for the CT scan as well as some IV cefepime. She will be seen by the hospitalist for further evaluation and care. Impression & Plan Right lower lobe pneumonia, Hypoxia Discharge Plan Visit Data Chief Complaint: Referred by Doctor Stated Complaint: REF BY DOC, LOW OXYGEN LEVEL, FLUID IN LUNGS ED Provider: Chetan Mcgregor Discharge Problem: Right lower lobe pneumonia, Hypoxia Patient Disposition: Being Evaluated by Hospitalist Forms Stand Alone Forms: [facility], [facility] Emergency Department, Important Visit Information Prescriptions Prescriptions: No Action (DME) blood-glucose meter [OneTouch Ultra2 Meter] Kit See Rx Instructions .Route Qty: 1 0RF Rx Instructions: check sugar bid famotidine 20 mg tablet 20 mg PO DAILY Qty: 90 1RF (DME) Affirm Pads Pad See Rx Instructions .ROUTE .MEDSUPPLY Qty: 400 5RF Rx Instructions: Patient uses 10-12 per day inside brief for incontinence atorvastatin 20 mg tablet 20 mg PO QPM Qty: 90 1RF furosemide 20 mg tablet 20 mg PO QAM Qty: 90 1RF (DME) Wheelchair (Manual) Device See Rx Instructions .Route Qty: 1 0RF Rx Instructions: WHEELCHAIR WITH LEG RESTS. cetirizine 10 mg tablet 10 mg PO DAILY Qty: 90 3RF carvedilol [Coreg] 6.25 mg tablet 6.25 mg PO BID Qty: 180 1RF Rx Instructions: must administer with a meal/food Eliquis 5 mg tablet 5 mg PO BID Qty: 180 1RF (DME) pen needle, diabetic [BD Ultra-Fine Mini Pen Needle] 31 gauge x 3/16" needle See Rx Instructions .ROUTE .MEDSUPPLY Qty: 100 2RF Rx Instructions: DX E11.9 injecting twice daily lisinopril 20 mg tablet 20 mg PO QAM Qty: 90 1RF Myrbetriq 50 mg tablet extended release 24 hr 50 mg PO QAM Qty: 90 1RF Rx Instructions: Start with 25 mg x 1 week then increase to 50 mg. 2 months of samples given. potassium chloride 10 mEq tablet extended release 10 meq PO QAM Qty: 90 1RF (DME) Comfort Shield Adult Diaper Misc See Rx Instructions .Route Qty: 60 12RF Rx Instructions: SIZE XL for Incontinence (DME) Mattress (Air or other) Misc See Rx Instructions .Route Qty: 1 0RF Rx Instructions: AIR MATTRESS ondansetron HCl 4 mg tablet 4 mg PO Q6H PRN (Reason: Nausea) Qty: 10 0RF Levemir FlexTouch U-100 Insuln 100 unit/mL (3 mL) insulin pen 14 unit subcut BID Qty: 15 1RF paroxetine HCl [Paxil CR] 25 mg tablet extended release 24 hr 50 mg PO QAM 90 Days Qty: 180 1RF (DME) OneTouch Ultra Test Strip See Rx Instructions .Route Qty: 100 5RF Rx Instructions: check sugar bid (DME) lancets [OneTouch Delica Lancets] 33 gauge misc See Rx Instructions .Route Qty: 100 3RF Rx Instructions: check sugar bid omeprazole 40 mg capsule,delayed release(DR/EC) 40 mg PO DAILY Qty: 90 2RF mecobalamin (vitamin B12) 1,000 mcg tablet,disintegrating 1,000 mcg PO QAM Centrum Silver Tablet 1 tab PO DAILY Referrals Referrals: Daniela Neves DO [Primary Care Provider] -
[2022-08-04 19:14] LABS: Basophils # (auto) 0.02 K/uL (0-0.2); Basophils % (auto) 0.2 %; Eosinophils # (auto) 0.27 K/uL (0-0.50); Eosinophils % (auto) 3.1 %; Hematocrit (blood only) 33.1 % (34.1-44.9); Hemoglobin 10.7 g/dl (12.0-16.0); Immature Granulocytes # (auto) 0.04 K/uL (0.00-0.02); Immature Granulocytes % (auto) 0.5 %; Lymphocytes # (auto) 2.04 K/uL (1.2-3.4); Lymphocytes % (auto) 23.5 %; Mean Corpuscular Hgb Conc 32.3 g/dL (32.0-36.0); Mean Corpuscular Volume 83.6 fL (80.0-100.0); Mean Platelet Volume 9.4 fL (9.4-12.3); Monocytes # (auto) 0.48 K/uL (0.24-0.82); Monocytes % (auto) 5.5 %; Neutrophils # (auto) 5.83 K/uL (1.4-6.5); Neutrophils % (auto) 67.2 %; Platelet Count 226 K/uL (130-400); RDW Coefficient of Variation 12.6 % (11.5-14.5); RDW Standard Deviation 38.6 fL (36.4-46.3); Red Blood Count 3.96 M/uL (3.93-5.22); White Blood Count 8.68 K/ul (4.8-10.8)
[2022-08-04 19:36] LABS: Influenza A virus by PCR Negative (Neg); Influenza B virus by PCR Negative (Neg); RSV by PCR Negative (Neg); SARS CoV2 RNA(COVID-19) Ceph NEGATIVE (Negative)
[2022-08-04 19:38] LABS: Albumin Level 3.3 gm/dl (3.4-5.0); Bilirubin Direct 0.2 mg/dl (0-0.2); Bilirubin,Total 0.8 mg/dl (0.2-1.0); Creatinine Clr Calc Pharmacy 41.7 ml/min; Est GFR (African American) 54.7 ml/min; Est GFR (Non-African American) 47.2 ml/min; Magnesium 1.5 mg/dl (1.7-2.4); Potassium 3.8 mmol/L (3.5-5.1); Total Protein 6.6 gm/dl (6.0-8.3)
--- NOTE | 2022-08-04 19:43 | XRay Report ---
XR chest 1V portable CLINICAL HISTORY: Sepsis TECHNIQUE: Single frontal radiograph of the chest was obtained. Comparison: Comparison is made to chest radiograph 07/26/2022 FINDINGS: No lines and tubes are seen. Cardiomegaly is noted. The aortic arch is calcified. Prominence and ceph alization of the vasculature is seen. No evidence of pleural effusion or pneumothorax. IMPRESSION: Cardiomegaly and mild pulmonary edema. ACT 112: Negative or not required by law. Electronically signed by: Higinio Barba M.D. 08/04/2022 7:42 PM
[2022-08-04] MEDS ORDERED: LORazepam 2 MG/1 ML VIAL IV STA (21:08)
--- NOTE | 2022-08-04 21:39 | History & Physical Report ---
Date of Service August 04, 2022 Assessment & Plan (1) Hypoxia: Plan: -CHF vs aspiration vs pneumonia -swallow study was ordered. -CXR read as cardiomegaly with mild pulmonary edema. Reviewing the CXR, there was some concerns in the right LL for pneumonia. A chest CTA was performed and stat read showed mild infiltrates/pneumonia in the right lung base. Will wait on official read. -Start DuoNeb Q4H prn -Patient's symptoms and physical exam as well as CXR and chest CTA is most consistent with pneumonia at this time. -Blood cultures pending, UA pending. -Will start on Cefepime at this time. -MRSA swab pending. (2) Hypomagnesemia: Plan: -Mg at 1.5 at time of admission -Given 2 bags of 1g Magnesium sulfate -No need to recheck mg at this time. (3) Hyperlipidemia: Plan: -Continue home atorvastatin 20mg QPM (4) Hypertension: Plan: -Continue home lisinopril 20mg QD (5) Diabetes: Plan: -Patient's home regimen held on admission -Continue BSG checks, sliding-scale insulin, hypoglycemic protocol (6) GERD without esophagitis: Plan: -Continue home omeprazole 40mg QD and famotidine 20mg QD. (7) Dementia: Plan: -baseline A&Ox1 with h/o falls -PT/OT ordered. (8) Diastolic CHF: Plan: -Continue home furosemide 20mg QD, carvedilol 6.25mg BID, and KCl 10meq QD (9) Paroxysmal A-fib: Plan: -Continue at home Eliquis 5mg BID. (10) Depression: Plan: Continue home Paxil CR 25mg QD. Plan Fluids: none Nutrition: NPO until swallow study Code status: full code DVT ppx: Eliquis PT/OT: on Dispo: med/surg Thank you for allowing me to participate in the care of your patient. -Dr. Tyshawn López PGY1 History of Present Illness Chief Complaint: CAP vs aspiration vs CHF Primary Care Provider: Daniela Neves DO Patient is a 77 y/o female with PMHx of CVA, Mixed Dementia (Vascular and Alzheimer's), Depression, Osteoarthritis, Osteoporosis, Chronic Venous Insufficiency, Hyperlipidemia, Hypertension, Type 2 Diabetes Mellitus, and Paroxysmal Atrial Fibrillation on Eliquis, Diastolic CHF on Lasix who presents to the hospital with c/o decreased oxygen saturations at home. She is A&O x1 at baseline due to underlying dementia. The patient denies any issues or concerns at this time. The patient's daughter is present for the exam and states that home health called her and told her that the patient's oxygen levels were in the 70's-90's. The patient's daughter states that the patient has been having some cold like symptoms for the past couple of days. In the ED: Patient was hypoxic at 88. Had to be put on 3L NC. Currently on 2L NC. normal CBC, elevated glucose at 217, mg at 1.5, CXR read as cardiomegaly with mild pulmonary edema. Reviewing the CXR, there was some concerns in the RLL for pneumonia so a chest CTA was performed and stat read showed mild infiltrates/pneumonia in the right lung base. Allergies Allergy/AdvReac Type Severity Reaction Status Date / Time pineapple Allergy Intermediate Swelling Verified 05/05/22 14:29 ciprofloxacin [From Cipro] Allergy Unknown Unknown Verified 05/05/22 14:29 Penicillins Allergy Unknown Unknown Verified 05/05/22 14:29 SURGICAL TAPE Allergy Unknown SKIN Uncoded 05/05/22 14:29 IRRITATION Home Medications Medication Instructions Recorded Confirmed Type blood-glucose meter (WhoteverTouch #1 ea 07/19/21 07/15/22 Rx Ultra2 Meter kit) blood sugar diagnostic (WhoteverTouch #100 ea 09/23/21 07/15/22 Rx Ultra Test strips) lancets 33 gauge (OneTouch Delica #100 ea 09/23/21 07/15/22 Rx Lancets) mecobalamin (vitamin B12) 1,000 1,000 mcg PO QAM 11/29/21 08/04/22 History mcg disintegrating tablet,sublingual famotidine 20 mg tablet 20 mg PO DAILY #90 tabs 12/08/21 08/04/22 Rx incontinence pad, liner, disp #400 ea 01/05/22 07/15/22 Rx (Affirm Pads) atorvastatin 20 mg tablet 20 mg PO QPM #90 tabs 02/08/22 08/04/22 Rx furosemide 20 mg tablet 20 mg PO QAM #90 tabs 02/08/22 08/04/22 Rx Wheelchair (Manual) #1 ea 02/23/22 07/15/22 Rx cetirizine 10 mg tablet 10 mg PO DAILY #90 tabs 03/24/22 08/04/22 Rx omeprazole 40 mg capsule,delayed 40 mg PO DAILY #90 caps 04/21/22 08/04/22 Rx release carvedilol 6.25 mg tablet (Coreg) 6.25 mg PO BID #180 tabs 05/04/22 08/04/22 Rx apixaban 5 mg tablet (Eliquis) 5 mg PO BID #180 tabs 05/05/22 08/04/22 Rx lisinopril 20 mg tablet 20 mg PO QAM #90 tabs 05/23/22 08/04/22 Rx mirabegron 50 mg tablet,extended 50 mg PO QAM #90 tabs 05/23/22 08/04/22 Rx release 24 hr (Myrbetriq) pen needle, diabetic 31 gauge x #100 ea 05/23/22 07/15/22 Rx 3/16" (BD Ultra-Fine Mini Pen Needle) potassium chloride 10 mEq 10 meq PO QAM #90 tabs 06/06/22 08/04/22 Rx tablet,extended release Mattress (Air or other) #1 ea 06/29/22 07/15/22 Rx diaper,brief,adult,disposable #60 ea 06/29/22 07/15/22 Rx (Comfort Shield Adult Diaper) ondansetron HCl 4 mg tablet 4 mg PO Q6H PRN Nausea #10 tabs 07/20/22 08/04/22 Rx Paxil CR 25 mg tablet,extended 50 mg PO QAM 90 days #180 tabs 07/25/22 08/04/22 Rx release (paroxetine HCl) insulin detemir U-100 100 unit/mL 14 unit (0.14 mL) subcut BID #15 mL 07/25/22 08/04/22 Rx (3 mL) subcutaneous pen (Levemir FlexTouch U-100 Insulin) hyzzyltgyhyi-fhocclqe-xiytuz tablet 1 tab PO DAILY 08/04/22 08/04/22 History Past Med/Surg History Medical History Atrial fibrillation [place] DX'D [facility] 10/16/2021-PLACED ON ELIQUIS F/U DR CHAUDHARY Avascular necrosis of bone of left hip 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-REMOVED WITH HYSTERECTOMY Cholecystitis DRAIN TUBE IN PLACE FROM GALL BLADDER Chronic venous insufficiency COVID-19 DX'D [facility] 08/18/2021-PNEUMONIA Dementia Depression Diabetes IDDM Diastolic CHF GERD (gastroesophageal reflux disease) GERD without esophagitis History of CVA (cerebrovascular accident) L NANCY ischemic stroke 12/2018 History of gastroesophageal reflux (GERD) Hyperlipidemia Hypertension Osteoporosis Urinary incontinence Surgical History History of surgical removal of skin lesion from buttock Hx laparoscopic cholecystectomy (12/01/21) Robotic Laparoscopic Cholecystectomy, robotic laparoscopic lysis of adhesions applicable) - Jc Smith DO, FACS S/P cataract surgery S/P hysterectomy S/P ORIF (open reduction internal fixation) fracture (09/2019) L hip S/P tonsillectomy Status post surgery tumor excision Status post surgery (07/2016) L finger tip removal d/t osteomyelitis Family History Mother Throat cancer Ovarian cancer Breast cancer Mouth cancer Father Heart disease Myocardial infarction Cancer Daughter Diabetes Breast cancer Family history of reaction to anesthesia PONV Other Coronary heart disease Denies family history of Colon cancer Prostate cancer Social History Smoking Status: Never smoker Second Hand Exposure: No; Hx Alcohol Use: No Hx Substance Use: No Preferred Language: Monegasque Communication Ability: Effective Visual Impairment: Partially Limited Hearing Ability: Normal 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: No Beliefs That Will Affect Care: None marital status: / Current Living Situation: Alone and Other Current Living Situation Comment: lives at home with 24 hour care current occupational status: retired How many Children do You have: 5 Other Information That Helps Us Care for You: No Feels Safe at Home: Yes Safety Concerns: Feels Safe At This Time Safety Concerns Comment: DIFFICULTY WALKING DUE LOOSE LEFT HIP PROSTHESIS/DEMENTIA Diet Comment: regular caffeine: No during the past year weight has: decreased > 10 lbs Dental Care, Regularly: No Physical Activity Frequency: Does not Exercise Seatbelt Use: always Sunscreen Use: No Assistive Devices: Walker and Wheelchair Review of Systems Review of Systems: Unobtainable due to mental health condition Physical Exam Constitutional: WD/WN, vitals as above Eyes: PERRL, conjunctivae normal, anicteric sclerae ENMT: external ear and nose normal, oropharynx normal Respiratory: normal respiratory effort Auscultation: + crackles (bilateral LL ) Cardiovascular: RRR, no murmur, no edema Vessels: no JVD Gastrointestinal (Abdomen): Inspection/Auscultation: normal bowel sounds Percussion/Palpation: abdomen soft; abdomen nontender Musculoskeletal: no cyanosis or clubbing, extremities motor strength 5/5 Skin: no rashes, warm and dry Psychiatric: Orientation: oriented to person; + not oriented to place and + not oriented to time Results & Data Results & Data ([facility]) Vital Signs (Past 12 Hours) Vital Signs Temp Pulse Pulse Resp BP BP Pulse Ox 08/04/22 19:15 78 16 129/79 95 08/04/22 19:06 79 21 106/52 L 97 08/04/22 18:55 80 22 106/52 L 97 08/04/22 18:44 78 22 88 L 08/04/22 18:25 36.4 C L 81 20 170/139 H 90 O2 Del Method O2 Flow Rate 08/04/22 19:15 Nasal Cannula 2 08/04/22 19:06 Nasal Cannula 2 08/04/22 18:55 Nasal Cannula 3 08/04/22 18:44 Room Air 08/04/22 18:25 Room Air Supervising Physician Co-Signing Physician Notes Attending addendum: I have physically seen this patient, have supervised the medical residents activities, and agree with the H&P unless as otherwise noted. Assessment and Plan: Acute respiratory failure with hypoxia- Concern regarding possible aspiration pneumonia Involving right lower lobe Duonebs every 4 hours while awake and every 2 hours when necessary. Cefepime 2 g IV every 12 hours Speech therapy assessment if CT suggests aspiration MRSA swab Hypomagnesemia- Magnesium 1.5 on admission 2 g magnesium sulfate IV, repeat laboratories in a.m. Hyperlipidemia- Continue atorvastatin Hypertension- Continue lisinopril Diabetes mellitus- Placed on Accu-Cheks with sliding scale Remaining orders and notations as noted Resident Activity Tracking Resident Involvement: Resident Care Provided Care Provided: Adult Hospital Medicine (1) Diabetes Diabetes mellitus complication status: with unspecified complications Diabetes mellitus shelter insulin use: unspecified shelter insulin use status Diabetes mellitus type: type 2 Qualified Code(s): E11.8 - Type 2 diabetes mellitus with unspecified complications (2) Hyperlipidemia Hyperlipidemia type: unspecified Qualified Code(s): E78.5 - Hyperlipidemia, unspecified (3) Hypertension Hypertension type: essential hypertension Qualified Code(s): I10 - Essential (primary) hypertension
[2022-08-04] MEDS ORDERED: OPTIRAY 320 500ml IV ONE (21:41)
[2022-08-04] MEDS ORDERED: CEFEPIME 2,000 MG/20 ML VIAL IV STA (22:25)
[2022-08-05] MEDS ORDERED: CARBOHYDRATES FOR HYPOGLYCEMIA PO PRN (00:43)
[2022-08-05] MEDS ORDERED: ONDANSETRON INJ 2 MG/ML 2 ML VIAL IV PRN (00:43)
[2022-08-05] MEDS ORDERED: GLUCOSE 10 TAB/TUBE PO PRN (00:43)
[2022-08-05] MEDS ORDERED: DEXTROSE 50% 50 ML SYRINGE IV PRN (00:43)
[2022-08-05] MEDS ORDERED: ONDANSETRON 4 MG OD TAB PO PRN (00:43)
[2022-08-05] MEDS ORDERED: GLUCOSE 40% GEL 15 GM TUBE PO PRN (00:43)
[2022-08-05] MEDS ORDERED: ALBUT/IPRATROP 3MG/0.5MG NEB 3 ML VIAL NEB PRN (00:43)
[2022-08-05] MEDS ORDERED: GLUCAGON FOR INJ 1 MG VIAL SQ PRN (00:43)
[2022-08-05] MEDS: MAGNESIUM SULFATE / D5W 1 GM/100 ML BAG IV SCH ×2 (01:22→03:25)
[2022-08-05] MEDS: INSULIN ASPART PER UNIT SC SCH ×6 (01:56→20:38)
[2022-08-05 05:30] LABS: Basophils # (auto) 0.02 K/uL (0-0.2); Basophils % (auto) 0.3 %; Eosinophils # (auto) 0.21 K/uL (0-0.50); Eosinophils % (auto) 2.8 %; Hematocrit (blood only) 31.3 % (34.1-44.9); Hemoglobin 10.2 g/dl (12.0-16.0); Immature Granulocytes # (auto) 0.02 K/uL (0.00-0.02); Immature Granulocytes % (auto) 0.3 %; Lymphocytes # (auto) 1.76 K/uL (1.2-3.4); Lymphocytes % (auto) 23.4 %; Mean Corpuscular Hemoglobin 27.1 pg (25.0-34.0); Mean Corpuscular Hgb Conc 32.6 g/dL (32.0-36.0); Mean Platelet Volume 10.2 fL (9.4-12.3); Monocytes # (auto) 0.55 K/uL (0.24-0.82); Monocytes % (auto) 7.3 %; Neutrophils # (auto) 4.95 K/uL (1.4-6.5); Neutrophils % (auto) 65.9 %; Platelet Count 212 K/uL (130-400); RDW Coefficient of Variation 12.7 % (11.5-14.5); RDW Standard Deviation 38.7 fL (36.4-46.3); Red Blood Count 3.77 M/uL (3.93-5.22); White Blood Count 7.51 K/ul (4.8-10.8)
[2022-08-05 05:36] LABS: Albumin Level 3.2 gm/dl (3.4-5.0); BUN Creatinine Ratio 27.8 (10-20); Bilirubin,Total 0.7 mg/dl (0.2-1.0); Calcium 8.7 mg/dl (8.5-10.1); Creatinine Clr Calc Pharmacy 47.8 ml/min; Est GFR (African American) 64.4 ml/min; Est GFR (Non-African American) 55.5 ml/min; Globulin 3.1 gm/dl (2.5-4.0); Potassium 3.7 mmol/L (3.5-5.1); Total Protein 6.3 gm/dl (6.0-8.3)
[2022-08-05 07:37] LABS: Estimated Average Glucose 220 mg/dl; Hemoglobin A1C 9.3 % (4.5-5.6)
--- NOTE | 2022-08-05 09:46 | Hospitalist Progress Note ---
Date of Service August 05, 2022 Assessment & Plan (1) Hypoxia: Plan: Patient is a 77 y/o female with PMHx of CVA, Mixed Dementia (Vascular and Alzheimer's), Depression, Osteoarthritis, Osteoporosis, Chronic Venous Insufficiency, Hyperlipidemia, Hypertension, Type 2 Diabetes Mellitus, and Paroxysmal Atrial Fibrillation on Eliquis, Diastolic CHF on Lasix who presented to the hospital with c/o decreased oxygen saturations at home after several days of fatigue, cough, and decreased appetite. Pneumonia -Presented with hypoxia, differential CHF vs aspiration vs pneumonia -CXR read as cardiomegaly with mild pulmonary edema. Reviewing the CXR, there was some concerns in the right LL for pneumonia. Chest CTA: "Bronchial wall thickening with mild right lung base predominant mucus plugging and right greater than left bibasilar patchy opacities compatible with an infectious or inflammatory pneumonitis" -Start DuoNeb Q4H prn -Patient's symptoms and physical exam as well as CXR and chest CTA is most consistent with pneumonia at this time. -Blood cultures pending, MRSA swab negative -Cefepime q12h Dementia -Baseline A&Ox1 with recent history of falls -Was living at her own home with daily home health/aides until recent fall- now has been staying at daughter's home -Per daughter, her dementia has progressed rapidly in the past year, now struggles to remember people (i.e. her daughter) -PT/OT ordered, has been receiving home PT/OT- can ambulate using a walker with close supervision -Speech Therapy evaluation completed: Minced and moist diet with thin liquids, allow for permissive aspiration per daughter's request -Unable to complete full evaluation/swallow study Hypomagnesemia -Mg at 1.5 at time of admission -Given 2 bags of 1g Magnesium sulfate Diabetes -Patient's home regimen held on admission -Continue BSG checks, sliding-scale insulin, hypoglycemic protocol Hyperlipidemia -Continue home atorvastatin 20mg QPM Hypertension -Continue home lisinopril 20mg QD GERD -Continue home omeprazole 40mg QD and famotidine 20mg QD Diastolic CHF -Continue home furosemide 20mg QD, carvedilol 6.25mg BID, and KCl 10meq QD Depression Continue home Paxil CR 25mg QD. Paroxysmal Atrial Fibrillation -Continue at home Eliquis 5mg BID. Nutrition: Minced and moist Code status: full code DVT ppx: Eliquis Dispo: med/surg (2) Hypomagnesemia: Plan: (3) Hyperlipidemia: (4) Hypertension: (5) Diabetes: (6) GERD without esophagitis: Plan: (7) Dementia: Plan: (8) Diastolic CHF: (9) Paroxysmal A-fib: (10) Depression: Admission and Anticipated Discharge Date Admission Date: August 04, 2022 Supervising Physician Co-Signing Physician Notes Attending addendum: I have physically seen this patient, have supervised the medical residents activities, and agree with the progress note unless as otherwise noted. Assessment and Plan: Acute respiratory failure with hypoxia- Concern regarding possible aspiration pneumonia Involving right lower lobe However, patient improving with cefepime. Duonebs every 4 hours while awake and every 2 hours when necessary. Speech therapy assessment if CT suggests aspiration. MRSA swab Hypomagnesemia- Magnesium 1.5 on admission 2 g magnesium sulfate IV, repeat laboratories in a.m. Hyperlipidemia- Continue atorvastatin Hypertension- Continue lisinopril Diabetes mellitus- Placed on Accu-Cheks with sliding scale Remaining orders and notations as noted Subjective Patient seen and examined. Daughter is at bedside providing history. Per the daughter, patient was very agitated last night and was given Ativan- has been sleepy soundly since. Patient's daughter states that her symptoms seem to be about the same as yesterday- although difficult to say since she is sleeping. Review of Systems Review of Systems: As per HPI Physical Exam Constitutional: WD/WN, vitals as above Neck: trachea midline, no thyromegaly Respiratory: anterior auscultation clear, unable to auscultate at back as patient was supine and asleep. +cough Cardiovascular: RRR, no murmur, no edema Skin: +1 edema of bilateral lower extremities Psychiatric: somnolent, poor eye contact Results & Data Results & Data ([facility]) Vital Signs (Past 12 Hours) Vital Signs Temp Pulse Pulse Resp BP BP Pulse Ox 08/05/22 09:00 74 17 97 08/05/22 08:00 76 21 120/81 95 08/05/22 07:00 74 19 148/59 H 97 08/05/22 08:00 08/05/22 08:00 36.8 C 74 18 120/81 96 08/05/22 06:00 74 20 132/71 95 08/05/22 05:00 72 15 140/67 96 08/05/22 04:00 74 19 130/75 94 08/05/22 03:00 74 20 132/53 L 91 08/05/22 01:41 75 16 124/77 91 08/05/22 00:14 121/87 95 08/04/22 21:49 23 92 08/04/22 21:49 107/67 O2 Del Method O2 Flow Rate 08/05/22 09:00 Nasal Cannula 2 08/05/22 08:00 Nasal Cannula 2 08/05/22 07:00 Nasal Cannula 2 08/05/22 08:00 Nasal Cannula 2 08/05/22 08:00 Nasal Cannula 2 08/05/22 06:00 Nasal Cannula 2 08/05/22 05:00 08/05/22 04:00 08/05/22 03:00 08/05/22 01:41 Nasal Cannula 2 08/05/22 00:14 08/04/22 21:49 08/04/22 21:49 Resident Activity Tracking Resident Involvement: Resident Care Provided Care Provided: Adult Hospital Medicine (1) Diabetes Diabetes mellitus complication status: with unspecified complications Diabetes mellitus group home insulin use: unspecified group home insulin use status Diabetes mellitus type: type 2 Qualified Code(s): E11.8 - Type 2 diabetes mellitus with unspecified complications (2) Hyperlipidemia Hyperlipidemia type: unspecified Qualified Code(s): E78.5 - Hyperlipidemia, unspecified (3) Hypertension Hypertension type: essential hypertension Qualified Code(s): I10 - Essential (primary) hypertension
[2022-08-05] MEDS: CEFEPIME 2,000 MG in SYRINGE 0 ML IV SCH ×2 (09:47→20:11)
--- NOTE | 2022-08-05 10:26 | CT Scan Report ---
CT angio chest PE protocol CT DOSE: 751.36 mGy.cm HISTORY: 77 years-old Female with sob. Acute shortness of breath TECHNIQUE: Multiple CTA images of the chest were obtained after the intravenous administration of 118 ml Optiray. Coronal and sagittal MIPS were obtained from the axial data set and were submitted for review. All measurements were obtained according to NASCET criteria. A dose lowering technique was u tilized adhering to the principles of ALARA. COMPARISON: Chest radiograph of same day, chest radiographs 05/29/2022. FINDINGS: CTA: Cardiomegaly without pericardial effusion. Extensive [place] coronary artery calcifications. There is atherosclerosis of the thoracic aorta without aneurysm or dissection. The segmental and subsegmental pulmonary arterial branches are suboptimally evaluated secondary to respiratory motion artifact. No c entral pulmonary emboli are identified. CT CHEST: Unremarkable thyroid. Mildly enlarged mediastinal and hilar lymph nodes with paratracheal lymph nodes measuring up to approximately 1.2 cm. Trace right pleural effusion. Mild bronchial wall thickening w ith right lung base predominant mucus plugging. Mild patchy groundglass and consolidative opacities a re noted within the right greater than left lung bases. No suspicious pulmonary nodules are identifie d. No acute process of the imaged upper abdomen. The liver appears enlarged. Unremarkable soft tissues. Degenerative changes of the shoulders and spine. Age-indeterminate 25% superior endplate compression deformity of the T3 vertebral body. 50% T12 compression deformity with 4 mm retropulsion and mild par avertebral edema. No significant central canal stenosis. IMPRESSION: 1. Cardiomegaly without pulmonary emboli identified. 2. Bronchial wall thickening with mild right lung base predominant mucus plugging and right greater t [place] left bibasilar patchy opacities compatible with an infectious or inflammatory pneumonitis. Correl ate clinically to exclude aspiration. 3. Mild mediastinal and hilar lymphadenopathy, likely reactive. 4. 50% T12 superior endplate compression deformity with mild paravertebral edema is likely acute or s ubacute demonstrating 4 mm retropulsion. 5. Age-indeterminate mild T3 compression deformity, favored to be chronic. ACT 112: Negative or not required by law. The above report was generated using voice recognition software. It may contain grammatical, syntax o r spelling errors. Electronically signed by: Dago Ramey M.D. 08/05/2022 10:24 AM
[2022-08-05] MEDS: carvediloL 6.25 MG TAB PO SCH ×2 (11:15→20:12)
[2022-08-05] MEDS: APIXABAN 5 MG TABLET PO SCH ×3 (11:15→20:13)
[2022-08-05] MEDS: CETIRIZINE HCL 10 MG TABLET PO SCH (11:16)
[2022-08-05] MEDS: CYANOCOBALAMIN (B-12) 500 MCG TABLET PO SCH (11:16)
[2022-08-05] MEDS: FAMOTIDINE 20 MG TAB PO SCH (11:16)
[2022-08-05] MEDS: MIRABEGRON ER 25 MG TAB PO SCH (11:16)
[2022-08-05] MEDS: FUROSEMIDE 20 MG TAB PO SCH ×2 (11:16→13:06)
[2022-08-05] MEDS: lisinopril 20 MG TAB PO SCH ×2 (11:16→13:06)
[2022-08-05] MEDS: PANTOprazole 40 MG TAB PO SCH (11:17)
[2022-08-05] MEDS: CEROVITE ADV FORMULA TAB PO SCH (11:17)
[2022-08-05] MEDS: POTASSIUM CHLORIDE 10 MEQ TABCR PO SCH (11:18)
[2022-08-05] MEDS: PARoxetine HCl CONTROLLED REL 12.5 MG TABCR PO SCH (11:18)
[2022-08-05] MEDS: LANTUS PER UNIT CHARGE SQ SCH ×2 (11:20→20:38)
[2022-08-05 19:22] LABS: Appearance Urine Clear (Clear); Bacteria Urine Automated Negative (Negative); Bilirubin Urine Negative (Negative); Blood Urine Negative (Negative); Color Urine Yellow; Epithelial Cell Urine Auto >30 /lpf (0-5); Glucose Urine UA Negative (Negative); Ketones Urine Trace (Negative); Leukocyte Esterase Urine Negative (Negative); Nitrite Urine Negative (Negative); Protein Urine Trace (Negative); RBC Urine Automated 0-4 /hpf (0-4); Specific Gravity Urine 1.033 (1.000-1.030); Urobilinogen Urine Negative (Negative); pH Urine 5.5 (4.5-7.5)
--- NOTE | 2022-08-05 19:47 | Billing Data ---
Date of Service August 05, 2022 Coding Level of Care Code 21497 Initial Inpt Care Lvl 3
[2022-08-05] MEDS: ATORVASTATIN 20 MG TAB PO SCH (20:11)
--- NOTE | 2022-08-06 06:40 | Electrocardiogram Report ---
Test Reason : Blood Pressure : / mmHG Vent. Rate : 078 BPM Atrial Rate : 078 BPM P-R Int : 172 ms QRS Dur : 076 ms QT Int : 404 ms P-R-T Axes : 055 033 067 degrees QTc Int : 460 ms Normal sinus rhythm Normal ECG When compared with ECG of 26-JUL-2022 20:08, No significant change was found Confirmed by Ravindra Ortiz ([id number]) on 08/06/2022 6:40:43 AM Referred By: REFERRED SELF Confirmed By:Ravindra Ortiz
[2022-08-06] MEDS: APIXABAN 5 MG TABLET PO SCH ×2 (08:58→20:33)
[2022-08-06] MEDS: carvediloL 6.25 MG TAB PO SCH ×2 (08:59→20:33)
[2022-08-06] MEDS: CETIRIZINE HCL 10 MG TABLET PO SCH (09:00)
[2022-08-06] MEDS: lisinopril 20 MG TAB PO SCH (09:01)
[2022-08-06] MEDS: CYANOCOBALAMIN (B-12) 500 MCG TABLET PO SCH (09:02)
[2022-08-06] MEDS: FUROSEMIDE 20 MG TAB PO SCH (09:02)
[2022-08-06] MEDS: FAMOTIDINE 20 MG TAB PO SCH (09:02)
[2022-08-06] MEDS: PANTOprazole 40 MG TAB PO SCH (09:03)
[2022-08-06] MEDS: MIRABEGRON ER 25 MG TAB PO SCH (09:03)
[2022-08-06] MEDS: CEROVITE ADV FORMULA TAB PO SCH (09:03)
[2022-08-06] MEDS: PARoxetine HCl CONTROLLED REL 12.5 MG TABCR PO SCH (09:04)
[2022-08-06] MEDS: POTASSIUM CHLORIDE 10 MEQ TABCR PO SCH (09:04)
[2022-08-06] MEDS: LANTUS PER UNIT CHARGE SQ SCH ×2 (09:20→20:40)
[2022-08-06] MEDS: INSULIN ASPART PER UNIT SC SCH ×4 (10:04→20:40)
[2022-08-06 10:09] LABS: Basophils # (auto) 0.02 K/uL (0-0.2); Basophils % (auto) 0.3 %; Eosinophils % (auto) 4.7 %; Hematocrit (blood only) 32.1 % (34.1-44.9); Hemoglobin 10.4 g/dl (12.0-16.0); Immature Granulocytes # (auto) 0.01 K/uL (0.00-0.02); Immature Granulocytes % (auto) 0.2 %; Lymphocytes # (auto) 2.16 K/uL (1.2-3.4); Lymphocytes % (auto) 34.1 %; Mean Corpuscular Hemoglobin 27.2 pg (25.0-34.0); Mean Corpuscular Hgb Conc 32.4 g/dL (32.0-36.0); Mean Corpuscular Volume 83.8 fL (80.0-100.0); Mean Platelet Volume 9.4 fL (9.4-12.3); Monocytes # (auto) 0.47 K/uL (0.24-0.82); Monocytes % (auto) 7.4 %; Neutrophils # (auto) 3.38 K/uL (1.4-6.5); Neutrophils % (auto) 53.3 %; Platelet Count 253 K/uL (130-400); RDW Coefficient of Variation 12.6 % (11.5-14.5); RDW Standard Deviation 38.4 fL (36.4-46.3); Red Blood Count 3.83 M/uL (3.93-5.22); White Blood Count 6.34 K/ul (4.8-10.8)
[2022-08-06 10:28] LABS: Albumin Globulin Ratio 1.1 (0.9-2); Albumin Level 3.3 gm/dl (3.4-5.0); BUN Creatinine Ratio 21.4 (10-20); Bilirubin,Total 0.7 mg/dl (0.2-1.0); Calcium 8.9 mg/dl (8.5-10.1); Creatinine Clr Calc Pharmacy 55.1 ml/min; Est GFR (African American) 76.6 ml/min; Est GFR (Non-African American) 66.1 ml/min; Globulin 3.1 gm/dl (2.5-4.0); Potassium 3.5 mmol/L (3.5-5.1); Total Protein 6.4 gm/dl (6.0-8.3)
--- NOTE | 2022-08-06 10:59 | Hospitalist Progress Note ---
Date of Service August 06, 2022 Assessment & Plan (1) Hypoxia: Plan: Patient is a 77 y/o female with PMHx of CVA, Mixed Dementia (Vascular and Alzheimer's), Depression, Osteoarthritis, Osteoporosis, Chronic Venous Insufficiency, Hyperlipidemia, Hypertension, Type 2 Diabetes Mellitus, and Paroxysmal Atrial Fibrillation on Eliquis, Diastolic CHF on Lasix who presented to the hospital with c/o decreased oxygen saturations at home after several days of fatigue, cough, and decreased appetite. Pneumonia - Presented with hypoxia, differential: CHF vs aspiration vs pneumonia - CXR read as cardiomegaly with mild pulmonary edema - Chest CTA: "Bronchial wall thickening with mild right lung base predominant mucus plugging and right greater than left bibasilar patchy opacities compatible with an infectious or inflammatory pneumonitis" - DuoNeb Q4H prn - Patient's symptoms and physical exam as well as CXR and chest CTA is most consistent with pneumonia at this time - able to wean off of 2L NC, O2 sat in 90s on RA - Blood cultures neg at 24 hrs, MRSA swab negative - continue cefepime q12h, will transition to PO ABX upon d/c Dementia -Baseline A&Ox1 with recent history of falls -Was living at her own home with daily home health/aides until recent fall- now has been staying at daughter's home -Per daughter, her dementia has progressed rapidly in the past year, now struggles to remember people (i.e. her daughter) -PT/OT ordered, has been receiving home PT/OT- can ambulate using a walker with close supervision -Speech Therapy evaluation completed: Minced and moist diet with thin liquids, allow for permissive aspiration per daughter's request -Unable to complete full evaluation/swallow study Hypomagnesemia -Mg at 1.5 at time of admission -Given 2 bags of 1g Magnesium sulfate Diabetes -Patient's home regimen held on admission -Continue BSG checks, sliding-scale insulin, hypoglycemic protocol Hyperlipidemia - Continue home atorvastatin 20mg QPM Hypertension - Continue home lisinopril 20mg QD GERD -Continue home omeprazole 40mg QD and famotidine 20mg QD Diastolic CHF -Continue home furosemide 20mg QD, carvedilol 6.25mg BID, and KCl 10meq QD Depression - Continue home Paxil CR 25mg QD Paroxysmal Atrial Fibrillation -Continue home Eliquis 5mg BID and carvedilol 6.25 mg BID (2) Hypomagnesemia: Plan: (3) Hyperlipidemia: (4) Hypertension: (5) Diabetes: (6) GERD without esophagitis: Plan: (7) Dementia: Plan: (8) Diastolic CHF: (9) Paroxysmal A-fib: (10) Depression: Plan Diet: Minced and moist Code status: full code DVT ppx: Eliquis Dispo: med/surg, plan for two step tomorrow and possible d/c Admission and Anticipated Discharge Date Admission Date: August 04, 2022 Subjective Patient is a 77 y/o female with PMHx of CVA, Mixed Dementia (Vascular and Alzheimer's), Depression, Osteoarthritis, Osteoporosis, Chronic Venous Insufficiency, Hyperlipidemia, Hypertension, Type 2 Diabetes Mellitus, and Paroxysmal Atrial Fibrillation on Eliquis, Diastolic CHF on Lasix who presented to the hospital with c/o decreased oxygen saturations at home after several days of fatigue, cough, and decreased appetite. Pt's daughter at bedside this AM. Pt unable to provide any history. Pt's daughter says she is doing much better than when she was originally brought in. Her cough is still present. Pt tends to take her NC oxygen off. Discussed options for rehab after pt's hospital stay and daughter prefers pt to come home with her as they already have PT/OT that comes to the house in addition to 24/7 care with home health nursing. Daughter does not want an inpatient rehab unless absolutely necessary. Review of Systems Review of Systems: Unobtainable due to cognitive status Pt's daughter at bedside and able to provide history. Physical Exam Constitutional: NAD. Vitals WNL. Eyes: no conjunctival abnormality Respiratory: Rhonchi heard throughout right lung romero, left CTA. No wheezing or crackles. Non labored breathing. Few episodes of deep, guttural cough while in the room. Cardiovascular: RRR. No murmur noted. No LL edema. Gastrointestinal (Abdomen): Nontender, +BS. No masses noted. Skin: no rashes, warm and dry Psychiatric: Alert. Mood and affect congruent. Results & Data Results & [facility] ([facility]) Vital Signs (Past 12 Hours) Vital Signs Temp Pulse Resp BP Pulse Ox O2 Del Method O2 Flow Rate 08/06/22 07:26 36.7 C 76 18 118/70 93 Nasal Cannula 2 Resident Activity Tracking Resident Involvement: Resident Care Provided Care Provided: Adult Hospital Medicine (1) Diabetes Diabetes mellitus complication status: with unspecified complications Diabetes mellitus parts counterman insulin use: unspecified parts counterman insulin use status Diabetes mellitus type: type 2 Qualified Code(s): E11.8 - Type 2 diabetes mellitus with unspecified complications (2) Hyperlipidemia Hyperlipidemia type: unspecified Qualified Code(s): E78.5 - Hyperlipidemia, unspecified (3) Hypertension Hypertension type: essential hypertension Qualified Code(s): I10 - Essential (primary) hypertension
[2022-08-06] MEDS: CEFEPIME 2,000 MG in SYRINGE 0 ML IV SCH ×2 (12:05→20:39)
[2022-08-06] MEDS: ATORVASTATIN 20 MG TAB PO SCH (20:33)
[2022-08-07 07:06] LABS: Hematocrit (blood only) 33.6 % (34.1-44.9); Mean Corpuscular Hemoglobin 26.8 pg (25.0-34.0); Mean Corpuscular Hgb Conc 32.7 g/dL (32.0-36.0); Mean Corpuscular Volume 81.8 fL (80.0-100.0); Mean Platelet Volume 9.1 fL (9.4-12.3); Platelet Count 265 K/uL (130-400); RDW Coefficient of Variation 12.3 % (11.5-14.5); Red Blood Count 4.11 M/uL (3.93-5.22); White Blood Count 6.66 K/ul (4.8-10.8)
[2022-08-07 07:41] LABS: BUN Creatinine Ratio 18.8 (10-20); Calcium 8.7 mg/dl (8.5-10.1); Creatinine Clr Calc Pharmacy 54.5 ml/min; Est GFR (African American) 75.5 ml/min; Est GFR (Non-African American) 65.2 ml/min; Magnesium 1.6 mg/dl (1.7-2.4); Potassium 3.7 mmol/L (3.5-5.1)
[2022-08-07] MEDS: MAGNESIUM SULFATE / D5W 1 GM/100 ML BAG IV SCH ×4 (08:10→14:01)
[2022-08-07] MEDS: APIXABAN 5 MG TABLET PO SCH (09:28)
[2022-08-07] MEDS: CETIRIZINE HCL 10 MG TABLET PO SCH (09:29)
[2022-08-07] MEDS: CYANOCOBALAMIN (B-12) 500 MCG TABLET PO SCH (09:29)
[2022-08-07] MEDS: FAMOTIDINE 20 MG TAB PO SCH (09:30)
[2022-08-07] MEDS: FUROSEMIDE 20 MG TAB PO SCH (09:30)
[2022-08-07] MEDS: PANTOprazole 40 MG TAB PO SCH (09:31)
[2022-08-07] MEDS: CEROVITE ADV FORMULA TAB PO SCH (09:31)
[2022-08-07] MEDS: MIRABEGRON ER 25 MG TAB PO SCH (09:31)
[2022-08-07] MEDS: PARoxetine HCl CONTROLLED REL 12.5 MG TABCR PO SCH (09:32)
[2022-08-07] MEDS: POTASSIUM CHLORIDE 10 MEQ TABCR PO SCH (09:33)
[2022-08-07] MEDS: LANTUS PER UNIT CHARGE SQ SCH (09:44)
[2022-08-07] MEDS: INSULIN ASPART PER UNIT SC SCH ×2 (09:45→12:57)
[2022-08-07] MEDS: carvediloL 6.25 MG TAB PO SCH (09:47)
[2022-08-07] MEDS: lisinopril 20 MG TAB PO SCH (09:48)
--- NOTE | 2022-08-07 12:45 | Discharge Summary ---
Date of Service August 07, 2022 Admission HPI Per Admitting Provider Patient is a 77 y/o female with PMHx of CVA, Mixed Dementia (Vascular and Alzheimer's), Depression, Osteoarthritis, Osteoporosis, Chronic Venous Insufficiency, Hyperlipidemia, Hypertension, Type 2 Diabetes Mellitus, and Paroxysmal Atrial Fibrillation on Eliquis, Diastolic CHF on Lasix who presents to the hospital with c/o decreased oxygen saturations at home. She is A&O x1 at baseline due to underlying dementia. The patient denies any issues or concerns at this time. The patient's daughter is present for the exam and states that home health called her and told her that the patient's oxygen levels were in the 70's-90's. The patient's daughter states that the patient has been having some cold like symptoms for the past couple of days. In the ED: Patient was hypoxic at 88. Had to be put on 3L NC. Currently on 2L NC. normal CBC, elevated glucose at 217, mg at 1.5, CXR read as cardiomegaly with mild pulmonary edema. Reviewing the CXR, there was some concerns in the RLL for pneumonia so a chest CTA was performed and stat read showed mild infiltrates/pneumonia in the right lung base. Admission Exam Per Admitting Provider Constitutional: WD/WN, vitals as above Eyes: PERRL, conjunctivae normal, anicteric sclerae ENMT: external ear and nose normal, oropharynx normal Respiratory: normal respiratory effort Auscultation: + crackles (bilateral LL ) Cardiovascular: RRR, no murmur, no edema Vessels: no JVD Gastrointestinal (Abdomen): Inspection/Auscultation: normal bowel sounds Percussion/Palpation: abdomen soft; abdomen nontender Musculoskeletal: no cyanosis or clubbing, extremities motor strength 5/5 Skin: no rashes, warm and dry Psychiatric: Orientation: oriented to person; + not oriented to place and + not oriented to time Principal Diagnosis pneumonia Discharge Exam Constitutional NAD. Vitals WNL. O2 sat 90s on RA. Afebrile. Respiratory Mildly restricted breath sounds upon anterior auscultation. No wheezing, rhonchi, or crackles. Non labored breathing. Cardiovascular Regular rate and rhythm. No murmur noted. Psychiatric Pt sleeping during exam. Baseline alert/oriented to person only. Discharge Data Allergies Allergy/AdvReac Type Severity Reaction Status Date / Time pineapple Allergy Intermediate Swelling Verified 05/05/22 14:29 ciprofloxacin [From Cipro] Allergy Unknown Unknown Verified 05/05/22 14:29 Penicillins Allergy Unknown Unknown Verified 05/05/22 14:29 SURGICAL TAPE Allergy Unknown SKIN Uncoded 05/05/22 14:29 IRRITATION Consultations 08/04/22 21:20 ED Decision to Admit Stat Ordered Studies 08/04/22 20:50 CT angio chest PE protocol Urgent Chest X-Ray 08/04/22 18:40 XR chest 1V portable CLINICAL HISTORY: Sepsis TECHNIQUE: Single frontal radiograph of the chest was obtained. Comparison: Comparison is made to chest radiograph 07/26/2022 FINDINGS: No lines and tubes are seen. Cardiomegaly is noted. The aortic arch is calcified. Prominence and cephalization of the vasculature is seen. No evidence of pleural effusion or pneumothorax. IMPRESSION: Cardiomegaly and mild pulmonary edema. ACT 112: Negative or not required by law. Electronically signed by: Higinio Barba M.D. 08/04/2022 7:42 PM Chest CTA 08/04/22 20:50 CT angio chest PE protocol CT DOSE: 751.36 mGy.cm HISTORY: 77 years-old Female with sob. Acute shortness of breath TECHNIQUE: Multiple CTA images of the chest were obtained after the intravenous administration of 118 ml Optiray. Coronal and sagittal MIPS were obtained from the axial data set and were submitted for review. All measurements were obtained according to NASCET criteria. A dose lowering technique was utilized adhering to the principles of ALARA. COMPARISON: Chest radiograph of same day, chest radiographs 05/29/2022. FINDINGS: CTA: Cardiomegaly without pericardial effusion. Extensive [place] coronary artery calcifications. There is atherosclerosis of the thoracic aorta without aneurysm or dissection. The segmental and subsegmental pulmonary arterial branches are suboptimally evaluated secondary to respiratory motion artifact. No central pulmonary emboli are identified. CT CHEST: Unremarkable thyroid. Mildly enlarged mediastinal and hilar lymph nodes with paratracheal lymph nodes measuring up to approximately 1.2 cm. Trace right pleural effusion. Mild bronchial wall thickening with right lung base predominant mucus plugging. Mild patchy groundglass and consolidative opacities are noted within the right greater than left lung bases. No suspicious pulmonary nodules are identified. No acute process of the imaged upper abdomen. The liver appears enlarged. Unremarkable soft tissues. Degenerative changes of the shoulders and spine. Age-indeterminate 25% superior endplate compression deformity of the T3 vertebral body. 50% T12 compression deformity with 4 mm retropulsion and mild paravertebral edema. No significant central canal stenosis. IMPRESSION: 1. Cardiomegaly without pulmonary emboli identified. 2. Bronchial wall thickening with mild right lung base predominant mucus plugging and right greater than left bibasilar patchy opacities compatible with an infectious or inflammatory pneumonitis. Correlate clinically to exclude aspiration. 3. Mild mediastinal and hilar lymphadenopathy, likely reactive. 4. 50% T12 superior endplate compression deformity with mild paravertebral edema is likely acute or subacute demonstrating 4 mm retropulsion. 5. Age-indeterminate mild T3 compression deformity, favored to be chronic. ACT 112: Negative or not required by law. The above report was generated using voice recognition software. It may contain grammatical, syntax or spelling errors. Electronically signed by: Dago Ramey M.D. 08/05/2022 10:24 AM Hospital Course (1) Hypoxia: Patient is a 77 y/o female with PMHx of CVA, Mixed Dementia (Vascular and Al zheimer's), Depression, Osteoarthritis, Osteoporosis, Chronic Venous Insufficiency, Hyperlipidemia, Hypertension, Type 2 Diabetes Mellitus, and Paroxysmal Atrial Fibrillation on Eliquis, Diastolic CHF on Lasix who presented to the hospital with c/o decreased oxygen saturations at home after several days of fatigue, cough, and decreased appetite. Pneumonia - Presented with hypoxia, differential: CHF vs aspiration vs pneumonia - CXR read as cardiomegaly with mild pulmonary edema - Chest CTA: "Bronchial wall thickening with mild right lung base predominant mucus plugging and right greater than left bibasilar patchy opacities compatible with an infectious or inflammatory pneumonitis" - DuoNeb Q4H prn - Patient's symptoms and physical exam as well as CXR and chest CTA is most consistent with pneumonia - pt required 2L NC, no requirement at discharge (O2 sat in 90s on RA) - Blood cultures neg at 48 hrs, MRSA swab negative - 2 days cefepime given; 1 dose 300 mg cefdinir given before discharge - remaining 300 mg cefdinir BID prescribed upon d/c for a total of 5 days PO ABX Dementia -Baseline A&Ox1 with recent history of falls -Was living at her own home with daily home health/aides until recent fall- now has been staying at daughter's home -Per daughter, her dementia has progressed rapidly in the past year, now struggles to remember people (i.e. her daughter) -PT/OT ordered, has been receiving home PT/OT- can ambulate using a walker with close supervision -Speech Therapy evaluation completed: Minced and moist diet with thin liquids, allow for permissive aspiration per daughter's request - pt will resume home PT/OT and home health nursing services Hypomagnesemia - Mg 1.6 today - given 1g x4 bags before discharge Diabetes -pt to resume home regimen upon d/c Hyperlipidemia - Continue home atorvastatin 20mg QPM Hypertension - Continue home lisinopril 20mg QD GERD -Continue home omeprazole 40mg QD and famotidine 20mg QD Diastolic CHF -Continue home furosemide 20mg QD, carvedilol 6.25mg BID, and KCl 10meq QD Depression - Continue home Paxil CR 25mg QD Paroxysmal Atrial Fibrillation -Continue home Eliquis 5mg BID and carvedilol 6.25 mg BID (2) Hypomagnesemia: (3) Hyperlipidemia: (4) Hypertension: (5) Diabetes: (6) GERD without esophagitis: (7) Dementia: (8) Diastolic CHF: (9) Paroxysmal A-fib: (10) Depression: Plan Diet: Minced and moist Code status: full code DVT ppx: Eliquis Dispo: d/c to daughter's home w/ home health nursing and home PT/OT Total Time Total Time Spent Total Time Spent (In Minutes): as per attending attestation Discharge Plan Discharge Items Patient Disposition: Home - Home Health Services Reason For Visit: PNEUMONIA VS CHF EXCERBATION Discharge Diagnosis: pneumonia Activity: Per Instructions section Non-emergency contact: Primary Care Provider Call non-emergency contact if: you have any medication questions and your symptoms worsen Follow-up/Referrals: Daniela Neves, [Primary Care Provider] - Diet: Carb Consistent or DM2 and Other - See Diet Comment Diet Comment: minced and moist Addtl Attending Provider Instructions: You were admitted to the hospital for respiratory symptoms including cough, congestion, and low oxygen levels. You were treated with an antibiotic through your IV line called cefepime and supplemental oxygen. By the time of discharge, you were not requiring any additional oxygen to keep your levels in the normal range. A discharge summary will be sent to your primary care physician to ensure continuity of care. Please bring this discharge summary with you to your next office appointment so that your provider can review it at that time. Medications: Your medication list has been reviewed and reconciled upon discharge to ensure accuracy and continuity of care. An updated list of all your medications is included with your hospital discharge paperwork. Please review this list closely and make note of any changes to your medications. - You have been sent the antibiotic cefdinir to take for continued treatment of your pneumonia. Your first dose was given in the hospital before you were discharged. The additional 9 capsules were sent to your pharmacy to complete the 5 day course. You are to take the medication two times per day. - Otherwise, continue all your home medications as before your hospitalization. Follow up appointments: - Make a follow up appointment with your PCP within the next week. It is very important that you follow up with them shortly after discharge from the hospital. - Keep all of your follow up appointments as already scheduled. If you cannot make an appointment, notify your provider. CONTACT YOUR PRIMARY CARE PROVIDER if you experience any of the following: - Increase in congestion or productive cough - Fevers - Difficulty following your treatment plan - Difficulty taking any of your medications CALL 911 OR GO TO THE EMERGENCY DEPARTMENT if you experience any of the following: - Difficulty breathing due to congestion or cough - Low oxygen levels - Sudden, severe abdominal pain or nausea/vomiting - Severe chest pain or chest pain that radiates to your jaw or arm - Sudden, severe shortness of breath or difficulty breathing Pending Studies at Discharge: No Stand-Alone Forms: [facility], Smoking Cessation Medications and DC Order Prescriptions: New cefdinir 300 mg capsule 300 mg PO BID 5 Days Qty: 9 0RF Rx Instructions: Take 1 capsule twice per day Continued (DME) blood-glucose meter [OneTouch Ultra2 Meter] Kit See Rx Instructions .Route Qty: 1 0RF Rx Instructions: check sugar bid famotidine 20 mg tablet 20 mg PO DAILY Qty: 90 1RF (DME) Affirm Pads Pad See Rx Instructions .ROUTE .MEDSUPPLY Qty: 400 5RF Rx Instructions: Patient uses 10-12 per day inside brief for incontinence atorvastatin 20 mg tablet 20 mg PO QPM Qty: 90 1RF furosemide 20 mg tablet 20 mg PO QAM Qty: 90 1RF (DME) Wheelchair (Manual) Device See Rx Instructions .Route Qty: 1 0RF Rx Instructions: WHEELCHAIR WITH LEG RESTS. cetirizine 10 mg tablet 10 mg PO DAILY Qty: 90 3RF carvedilol [Coreg] 6.25 mg tablet 6.25 mg PO BID Qty: 180 1RF Rx Instructions: must administer with a meal/food Eliquis 5 mg tablet 5 mg PO BID Qty: 180 1RF (DME) pen needle, diabetic [BD Ultra-Fine Mini Pen Needle] 31 gauge x 3/16" needle See Rx Instructions .ROUTE .MEDSUPPLY Qty: 100 2RF Rx Instructions: DX E11.9 injecting twice daily lisinopril 20 mg tablet 20 mg PO QAM Qty: 90 1RF Myrbetriq 50 mg tablet extended release 24 hr 50 mg PO QAM Qty: 90 1RF Rx Instructions: Start with 25 mg x 1 week then increase to 50 mg. 2 months of samples given. potassium chloride 10 mEq tablet extended release 10 meq PO QAM Qty: 90 1RF (DME) Comfort Shield Adult Diaper Misc See Rx Instructions .Route Qty: 60 12RF Rx Instructions: SIZE XL for Incontinence (DME) Mattress (Air or other) Misc See Rx Instructions .Route Qty: 1 0RF Rx Instructions: AIR MATTRESS ondansetron HCl 4 mg tablet 4 mg PO Q6H PRN (Reason: Nausea) Qty: 10 0RF Levemir FlexTouch U-100 Insuln 100 unit/mL (3 mL) insulin pen 14 unit subcut BID Qty: 15 1RF paroxetine HCl [Paxil CR] 25 mg tablet extended release 24 hr 50 mg PO QAM 90 Days Qty: 180 1RF (DME) OneTouch Ultra Test Strip See Rx Instructions .Route Qty: 100 5RF Rx Instructions: check sugar bid (DME) lancets [OneTouch Delica Lancets] 33 gauge misc See Rx Instructions .Route Qty: 100 3RF Rx Instructions: check sugar bid omeprazole 40 mg capsule,delayed release(DR/EC) 40 mg PO DAILY Qty: 90 2RF mecobalamin (vitamin B12) 1,000 mcg tablet,disintegrating 1,000 mcg PO QAM Centrum Silver Tablet 1 tab PO DAILY Discharge Orders: Discharge Order (Routine); Ordered 08/07/22 Ordered By: Dinorah Snider/Other Patient Handouts: Managing Type 2 Diabetes Admission Data Admit Date/Time: 08/04/22 21:58 Attending Provider: Adis Cee Admit Provider: Tyshawn López Primary Care Provider: Daniela Neves Other Providers: Gamaliel Doshi ; James Al [facility] ; Padilla Shields Resident Activity Tracking Resident Involvement: Resident Care Provided Care Provided: Adult [facility]
[2022-08-07] MEDS ORDERED: CEFDINIR 300 MG CAP PO ONE (14:00)
--- NOTE | 2022-08-07 16:09 | Billing Data ---
Date of Service August 07, 2022 Coding Level of Care Code D/C DAY MANAGEMENT <30 MINS
--- NOTE | 2022-08-07 18:57 | Billing Data ---
Date of Service August 06, 2022 Coding Level of Care Code 49047 Subseq Hosp Care Lvl 2
--- NOTE | 2022-08-07 18:57 | Billing Data ---
Date of Service August 05, 2022 Coding Level of Care Code 13313 Subseq Hosp Care Lvl 2
--- NOTE | 2022-08-17 09:12 | Coding Query ---
To promote full compliance with coding requirements relating to patient care, provider participation is requested in all cases of tea tree farmer uncertainty. Please assist us with the question(s) below: Coding Question(s): The diagnosis below was documented in the H&P and progress notes, then subsequently fell off documentation on the Discharge Summary and the Discharge Summary documents Pneumonia and Addendum documents CAP. Please indicate if it is still a possible diagnosis or ruled out. Physician's Response(s): POSSIBLE ASPIRATION PNEUMONIA ( x) Diagnosed and POA ( ) Diagnosed and not POA ( ) Ruled out ( ) Other (please specify) MTDD
== END 2022-08-07 16:33 | disposition home health service (06) | DRG 177 ==
LOC: ED 18:23 → SUATTDRO 21:58 → EDINP 21:58 → 3E 08-05 18:47

== ENCOUNTER 2022-10-13 17:43 | Inpatient (IN) ==
--- NOTE | 2022-10-13 17:56 | ED Triage Note ---
Date of Service October 13, 2022 History of Present Illness This patient was briefly evaluated while in triage. An abbreviated physical exam was performed. This patient is a 77-year-old Female who presents to the ED for evaluation of recent hospitalize for pneumonia at [facility] today, feeling poorly, fever, "raspy" per MD return of cough Monday hx of dementia, not at baseline per daughter Physical Exam GENERAL: NAD, seated in a wheelchair CARDIOVASCULAR: RRR RESPIRATORY: CTA ABDOMEN: BS x 4. Nontender to palpation. Initial orders for labs and / or imaging were placed and patient was placed in the waiting area until a bed is available. Please see further documentation for the full ED course. MDM / Impression Impression Impression: Hypoxia, COVID-19
--- NOTE | 2022-10-13 18:50 | XRay Report ---
XR chest 1V portable CLINICAL HISTORY: Recent pneumonia TECHNIQUE: Single frontal radiograph of the chest was obtained. Comparison: Comparison is made to chest radiograph 08/04/[address] chest 08/04/2022 FINDINGS: No lines and tubes are seen. Calcified aortic knob is seen. The lungs are clear. No evidence of pleur al effusion or pneumothorax. IMPRESSION: No acute abnormalities and in particular no evidence of pneumonia. ACT 112: Negative or not required by law. Electronically signed by: Higinio Barba M.D. 10/13/2022 6:48 PM
[2022-10-13 18:55] LABS: Basophils # (auto) 0.02 K/uL (0-0.2); Basophils % (auto) 0.3 %; Eosinophils # (auto) 0.06 K/uL (0-0.50); Eosinophils % (auto) 0.8 %; Hemoglobin 12.2 g/dl (12.0-16.0); Immature Granulocytes # (auto) 0.01 K/uL (0.01-0.20); Immature Granulocytes % (auto) 0.1 %; Lymphocytes # (auto) 0.92 K/uL (1.2-3.4); Lymphocytes % (auto) 12.7 %; Mean Corpuscular Hemoglobin 25.2 pg (25.0-34.0); Mean Corpuscular Hgb Conc 32.1 g/dL (32.0-36.0); Mean Corpuscular Volume 78.5 fL (80.0-100.0); Mean Platelet Volume 10.2 fL (9.4-12.4); Monocytes # (auto) 0.44 K/uL (0.11-0.59); Monocytes % (auto) 6.1 %; Neutrophils # (auto) 5.77 K/uL (1.40-6.50); Platelet Count 156 K/uL (130-400); RDW Coefficient of Variation 14.2 % (11.5-14.5); RDW Standard Deviation 40.3 fL (36.4-46.3); Red Blood Count 4.84 M/uL (4.20-5.40); White Blood Count 7.22 K/ul (4.8-10.8)
[2022-10-13] MEDS ORDERED: ALBUT/IPRATROP 3MG/0.5MG NEB 3 ML VIAL NEB STA ×2 (19:11→20:44)
[2022-10-13 19:13] LABS: Alanine Aminotransferase 15 U/L (7-52); Albumin Globulin Ratio 1.3 (0.9-2); Albumin Level 4.3 gm/dl (3.4-5.0); Alkaline Phosphatase 143 U/L (34-104); Anion Gap 6 (3-11); Aspartate Aminotransferase 22 U/L (13-39); Bilirubin,Total 0.6 mg/dl (0.2-1.0); Blood Urea Nitrogen 16 mg/dl (6-23); Carbon Dioxide 28 mmol/L (21-32); Chloride 102 mmol/L (98-107); Est GFR (African American) 76.6 ml/min; Est GFR (Non-African American) 66.1 ml/min; Globulin 3.2 gm/dl (2.5-4.0); Glucose 204 mg/dl (70-99(Fasting)); Potassium 4.2 mmol/L (3.5-5.1); Sodium 136 mmol/L (136-145); Total Protein 7.5 gm/dl (6.0-8.3)
[2022-10-13 19:19] LABS: Troponin I High Sensitivity 6.6 pg/ml (0-14)
--- NOTE | 2022-10-13 19:42 | Emergency Department Note ---
History of Present Illness General Chief complaint: Illness Stated complaint: LOW GRADE TEMP, COUGH Time Seen by Provider: 10/13/22 18:54 Source: family (Daughter at bedside) History of Present Illness Provider complaint: Cough fever Onset (ago): day(s) 1 77-year-old female presents emergency department for cough and fever. Patient has a history of dementia. History is provided by her daughter. Daughter reports that the patient started having cough and fever for the last day. Daughter reports that the patient was recently discharged from [facility] for 1 week admission of pneumonia. Patient's daughter states she has a history of aspiration pneumonia. No recent falls. No vomiting or diarrhea. Home Medications Medication Instructions Recorded Confirmed Type blood-glucose meter (OneTouch #1 ea 07/19/21 10/13/22 Rx Ultra2 Meter kit) blood sugar diagnostic (OneTouch #100 ea 09/23/21 10/13/22 Rx Ultra Test strips) lancets 33 gauge (OneTouch Delica #100 ea 09/23/21 10/13/22 Rx Lancets) mecobalamin (vitamin B12) 1,000 1,000 mcg PO QAM 11/29/21 10/13/22 History mcg disintegrating tablet,sublingual incontinence pad, liner, disp #400 ea 01/05/22 10/13/22 Rx (Affirm Pads) atorvastatin 20 mg tablet 20 mg PO QPM #90 tabs 02/08/22 10/13/22 Rx Wheelchair (Manual) #1 ea 02/23/22 10/13/22 Rx cetirizine 10 mg tablet 10 mg PO DAILY #90 tabs 03/24/22 10/13/22 Rx omeprazole 40 mg capsule,delayed 40 mg PO DAILY #90 caps 04/21/22 10/13/22 Rx release carvedilol 6.25 mg tablet (Coreg) 6.25 mg PO BID #180 tabs 05/04/22 10/13/22 Rx lisinopril 20 mg tablet 20 mg PO QAM #90 tabs 05/23/22 10/13/22 Rx mirabegron 50 mg tablet,extended 50 mg PO QAM #90 tabs 05/23/22 10/13/22 Rx release 24 hr (Myrbetriq) pen needle, diabetic 31 gauge x #100 ea 05/23/22 10/13/22 Rx 3/16" (BD Ultra-Fine Mini Pen Needle) potassium chloride 10 mEq 10 meq PO QAM #90 tabs 06/06/22 10/13/22 Rx tablet,extended release Mattress (Air or other) #1 ea 06/29/22 10/13/22 Rx diaper,brief,adult,disposable #60 ea 06/29/22 10/13/22 Rx (Comfort Shield Adult Diaper) Paxil CR 25 mg tablet,extended 50 mg PO QAM 90 days #180 tabs 07/25/22 10/13/22 Rx release (paroxetine HCl) mzyqixvgtgvx-mhjefafi-crbtbd tablet 1 tab PO DAILY 08/04/22 10/13/22 History memantine 5 mg tablet 5 mg PO BID #60 tabs 09/16/22 10/13/22 Rx mirtazapine 15 mg tablet 15 mg PO QPM #30 tabs 09/16/22 10/13/22 Rx washable pads #30 ea 09/20/22 10/13/22 Rx insulin detemir U-100 100 unit/mL 14 unit (0.14 mL) subcut BID #15 mL 09/23/22 10/13/22 Rx (3 mL) subcutaneous pen (Levemir FlexPen) famotidine 20 mg tablet 20 mg PO DAILY PRN acid reflux #90 10/11/22 10/13/22 Rx tabs ondansetron 4 mg disintegrating 4 mg PO Q6H PRN nausea and 10/11/22 10/13/22 Rx tablet vomiting #30 tabs apixaban 5 mg tablet (Eliquis) 5 mg PO BID #180 tabs 10/12/22 10/13/22 Rx Allergies Allergy/AdvReac Type Severity Reaction Status Date / Time pineapple Allergy Intermediate Swelling Verified 10/13/22 16:21 ciprofloxacin [From Cipro] Allergy Unknown Unknown Verified 10/13/22 16:21 Penicillins Allergy Unknown Unknown Verified 10/13/22 16:21 SURGICAL TAPE Allergy Unknown SKIN Uncoded 10/13/22 16:21 IRRITATION Past Med/Surg History Medical History Atrial fibrillation NEW ONSET DX'D [facility] 10/16/2021-PLACED ON ELIQUIS F/U DR CHAUDHARY Avascular necrosis of bone of left hip 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-REMOVED WITH HYSTERECTOMY Cholecystitis DRAIN TUBE IN PLACE FROM GALL BLADDER Chronic venous insufficiency COVID-19 DX'D [facility] 08/18/2021-PNEUMONIA Dementia Depression Diabetes IDDM Diastolic CHF GERD (gastroesophageal reflux disease) GERD without esophagitis History of CVA (cerebrovascular accident) L NANCY ischemic stroke 12/2018 History of gastroesophageal reflux (GERD) Hyperlipidemia Hypertension Osteoporosis Urinary incontinence Surgical History History of surgical removal of skin lesion from buttock Hx laparoscopic cholecystectomy (12/01/21) Robotic Laparoscopic Cholecystectomy, robotic laparoscopic lysis of adhesions applicable) - Jc Smith, DO, FACS S/P cataract surgery S/P hysterectomy S/P ORIF (open reduction internal fixation) fracture (09/2019) L hip S/P tonsillectomy Status post surgery tumor excision Status post surgery (07/2016) L finger tip removal d/t osteomyelitis Family History Mother Throat cancer Ovarian cancer Breast cancer Mouth cancer Father Heart disease Myocardial infarction Cancer Daughter Diabetes Breast cancer Family history of reaction to anesthesia PONV Other Coronary heart disease Denies family history of Colon cancer Prostate cancer Social History Smoking Status: Never smoker Second Hand Exposure: No; Hx Alcohol Use: No Hx Substance Use: No Preferred Language: Palestinian Communication Ability: Effective Visual Impairment: Partially Limited Hearing Ability: Normal 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 Beliefs That Will Affect Care: None marital status: / Current Living Situation: Alone and Other Current Living Situation Comment: lives at home with 24 hour care current occupational status: retired How many Children do You have: 5 Feels Safe at Home: Yes Safety Concerns Comment: DIFFICULTY WALKING DUE LOOSE LEFT HIP PROSTHESIS/DEMENTIA Diet Comment: regular caffeine: No during the past year weight has: decreased > 10 lbs Dental Care, Regularly: No Physical Activity Frequency: Does not Exercise Seatbelt Use: always Sunscreen Use: No Assistive Devices: Walker and Wheelchair Physical Exam Vital Signs Vital Signs - 24 hr 10/13/22 17:52 10/13/22 18:58 10/13/22 19:11 Temperature 37 C Temperature Source Temporal Artery Scan Pulse Rate 96 H 91 H Pulse Rate [Apical] 97 H Respiratory Rate 18 24 Respiratory Effort / Characteristics Non-Labored Spontaneous Respiratory Depth Normal Normal Blood Pressure 201/99 H Blood Pressure [Left Arm] 206/113 H Blood Pressure Mean 133 Blood Pressure Mean [Left Arm] 144 Pulse Oximetry 95 98 Oxygen Delivery Method Room Air Room Air Oxygen Flow Rate Sepsis Recent Fever Within 48 Hours No Sepsis New/Unexplained Change in Mental Status No Sepsis Action Taken by Nursing No Action Required Oxygen Flow Rate - Titration Pulse Oximetry Post Tiitration 10/13/22 20:39 Temperature Temperature Source Pulse Rate Pulse Rate [Apical] Respiratory Rate Respiratory Effort / Characteristics Respiratory Depth Blood Pressure Blood Pressure [Left Arm] Blood Pressure Mean Blood Pressure Mean [Left Arm] Pulse Oximetry 88 L Oxygen Delivery Method Room Air Oxygen Flow Rate 0 Sepsis Recent Fever Within 48 Hours Sepsis New/Unexplained Change in Mental Status Sepsis Action Taken by Nursing Oxygen Flow Rate - Titration 2 Pulse Oximetry Post Tiitration 95 Physical Exam HENT: Exam performed. - Head: Normocephalic and atraumatic. EYES: Conjunctivae and EOM are normal. Right eye exhibits no discharge. Left eye exhibits no discharge. No scleral icterus. NECK: Normal range of motion. Neck supple. No JVD present. CV: Normal rate, regular rhythm, normal heart sounds and intact distal pulses. There is no peripheral edema. Palpable radial pulses bue. PULM/CHEST: Wheezing bilaterally. ABD: The abdomen is soft. There is no tenderness. SKIN: Skin is warm and dry. He is not diaphoretic. Course Course 1853: The patient was evaluated in room B4. A complete history and physical exam was performed Cardiac monitoring: An order was placed for continuous cardiac monitoring. The monitor shows a rate of 90 with sinus rhythm interpreted by me 2045: Nursing called to inform you that the patient's oxygen saturation went down to 88%. On reassessment the patient still having wheezing. Repeat DuoNeb ordered for the patient. Daughter at bedside states that the patient used to smoke heavily when she was younger. Solu-Medrol also ordered for the patient. Chest x-ray negative. Labs within normal limits. Leukocytosis 7.62. Hemoglobin 12.2. Electrolytes within normal limits. Cardiac enzymes negative. Metabolic profile negative. Procalcitonin negative. Influenza COVID and RSV is still pending. [facility] given her hypoxia and wheezing. 2158: Patient is COVID-positive. Oxygen saturations are stable on supplemental oxygen via nasal cannula. IV steroids were ordered for the patient. Patient admitted to Dr. Lock team. Administered Medications Discontinued Medications Albuterol (Albut/Ipratrop 3mg/0.5mg Neb 3 Ml Vial) 3 ml NEB NOW STA; Protocol Stop: 10/13/22 19:12 Last Admin: 10/13/22 19:16 Dose: 3 ml Documented By: CHARLY Albuterol (Albut/Ipratrop 3mg/0.5mg Neb 3 Ml Vial) 3 ml NEB NOW STA; Protocol Stop: 10/13/22 20:45 Last Admin: 10/13/22 21:13 Dose: 3 ml Documented By: KIMBERLY Sodium Chloride (Nss 1000ml) 500 mls @ 999 mls/hr IV .Q31M ONE Stop: 10/13/22 21:04 Last Admin: 10/13/22 21:33 Dose: 999 mls/hr Documented By: KIMBERLY Methylprednisolone (Methylprednisolone 125 Mg/2 Ml Vial) 125 mg IV NOW STA Stop: 10/13/22 20:45 Last Admin: 10/13/22 21:13 Dose: 125 mg Documented By: KIMBERLY Critical Care Time Critical Care Time: Yes Total Critical Care Time: 40 I have personally spent greater than 40 minutes of critical care time in the direct management of this patient. This includes bedside care, interpretation of diagnostic studies, and testing, discussion with consultants, patient, and family members, and other required patient management activities. This 40 minutes is in excess of all separately billable procedures. Medical Decision Making Laboratory Data Attestation: I reviewed the patient's lab results. 10/13/22 18:37 10/13/22 18:37 Lab Results 10/13/22 10/13/22 10/13/22 Range/Units 18:37 18:37 18:37 WBC 7.22 (4.8-10.8) K/ul RBC 4.84 (4.20-5.40) M/uL Hgb 12.2 (12.0-16.0) g/dl Hct 38.0 (37.0-47.0) % MCV 78.5 L (80.0-100.0) fL MCH 25.2 (25.0-34.0) pg MCHC 32.1 (32.0-36.0) g/dL RDW Std Deviation 40.3 (36.4-46.3) fL RDW Coeff of Catherine 14.2 (11.5-14.5) % Plt Count 156 (130-400) K/uL MPV 10.2 (9.4-12.4) fL Immature Gran % (Auto) 0.1 % Neut % (Auto) 80.0 % Lymph % (Auto) 12.7 % Tyrrell % (Auto) 6.1 % Eos % (Auto) 0.8 % Baso % (Auto) 0.3 % Neut # (Auto) 5.77 (1.40-6.50) K/uL Lymph # (Auto) 0.92 L (1.2-3.4) K/uL Tyrrell # (Auto) 0.44 (0.11-0.59) K/uL Eos # (Auto) 0.06 (0-0.50) K/uL Baso # (Auto) 0.02 (0-0.2) K/uL Immature Gran # (Auto) 0.01 (0.01-0.20) K/uL Sodium 136 (136-145) mmol/L Potassium 4.2 (3.5-5.1) mmol/L Chloride 102 (98-107) mmol/L Carbon Dioxide 28 (21-32) mmol/L Anion Gap 6 (3-11) BUN 16 (6-23) mg/dl Creatinine 0.84 (0.6-1.2) mg/dl Est Cr Clr Drug Dosing Not Reportable Est GFR ( Amer) 76.6 ml/min Est GFR (Non-Af Amer) 66.1 ml/min BUN/Creatinine Ratio 19.0 (10-20) Glucose 204 H (70-99(Fasting)) mg/dl Lactate (0.4-2.0) mmol/L Calcium 9.0 (8.5-10.1) mg/dl Total Bilirubin 0.6 (0.2-1.0) mg/dl AST 22 (13-39) U/L ALT 15 (7-52) U/L Alkaline Phosphatase 143 H (34-104) U/L Troponin I High Sens 6.6 (0-14) pg/ml Total Protein 7.5 (6.0-8.3) gm/dl Albumin 4.3 (3.4-5.0) gm/dl Globulin 3.2 (2.5-4.0) gm/dl Albumin/Globulin Ratio 1.3 (0.9-2) Procalcitonin < 0.05 (0-0.5) ng/ml SARS-CoV-2 (PCR) (Negative) Influenza Type A (PCR) (Neg) Influenza Type B (PCR) (Neg) RSV (RT-PCR) (Neg) 10/13/22 10/13/22 Range/Units 20:02 20:52 WBC (4.8-10.8) K/ul RBC (4.20-5.40) M/uL Hgb (12.0-16.0) g/dl Hct (37.0-47.0) % MCV (80.0-100.0) fL MCH (25.0-34.0) pg MCHC (32.0-36.0) g/dL RDW Std Deviation (36.4-46.3) fL RDW Coeff of Catherine (11.5-14.5) % Plt Count (130-400) K/uL MPV (9.4-12.4) fL Immature Gran % (Auto) % Neut % (Auto) % Lymph % (Auto) % Tyrrell % (Auto) % Eos % (Auto) % Baso % (Auto) % Neut # (Auto) (1.40-6.50) K/uL Lymph # (Auto) (1.2-3.4) K/uL Tyrrell # (Auto) (0.11-0.59) K/uL Eos # (Auto) (0-0.50) K/uL Baso # (Auto) (0-0.2) K/uL Immature Gran # (Auto) (0.01-0.20) K/uL Sodium (136-145) mmol/L Potassium (3.5-5.1) mmol/L Chloride (98-107) mmol/L Carbon Dioxide (21-32) mmol/L Anion Gap (3-11) BUN (6-23) mg/dl Creatinine (0.6-1.2) mg/dl Est Cr Clr Drug Dosing Est GFR ( Amer) ml/min Est GFR (Non-Af Amer) ml/min BUN/Creatinine Ratio (10-20) Glucose (70-99(Fasting)) mg/dl Lactate 1.2 (0.4-2.0) mmol/L Calcium (8.5-10.1) mg/dl Total Bilirubin (0.2-1.0) mg/dl AST (13-39) U/L ALT (7-52) U/L Alkaline Phosphatase (34-104) U/L Troponin I High Sens (0-14) pg/ml Total Protein (6.0-8.3) gm/dl Albumin (3.4-5.0) gm/dl Globulin (2.5-4.0) gm/dl Albumin/Globulin Ratio (0.9-2) Procalcitonin (0-0.5) ng/ml SARS-CoV-2 (PCR) POSITIVE A* (Negative) Influenza Type A (PCR) Negative (Neg) Influenza Type B (PCR) Negative (Neg) RSV (RT-PCR) Negative (Neg) Imaging Data Attestation: I personally reviewed and interpreted this imaging study as fol lows: My Impression: Chest x-ray negative. Airway clear. No pneumothorax. No consolidation. No cardiomegaly or cephalization.. No free air under the diaphragm. No fractures of the skeletal structures. Radiologist's Impression: Chest X-Ray 10/13/22 17:56 XR chest 1V portable CLINICAL HISTORY: Recent pneumonia TECHNIQUE: Single frontal radiograph of the chest was obtained. Comparison: Comparison is made to chest radiograph 08/04/[address] chest 08/04/2022 FINDINGS: No lines and tubes are seen. Calcified aortic knob is seen. The lungs are clear. No evidence of pleural effusion or pneumothorax. IMPRESSION: No acute abnormalities and in particular no evidence of pneumonia. ACT 112: Negative or not required by law. Electronically signed by: Higinio Barba M.D. 10/13/2022 6:48 PM ECG Data Attestation: I personally reviewed and interpreted this ECG as follows: Indication: + weakness Rate (beats per minute): 98 Rhythm: + normal sinus ECG Intervals/blocks: + Normal VT and + Normal QT-c ECG ST segments: + Normal ST segments Additional Comments: QRS 76 MDM Narrative 1854: The patient was evaluated in room B4. A complete history and physical exam was performed Cardiac monitoring: An order was placed for continuous cardiac monitoring. The monitor shows a rate of 90 with sinus rhythm interpreted by me 2044: Nursing called to inform you that the patient's oxygen saturation went down to 88%. On reassessment the patient still having wheezing. Repeat DuoNeb ordered for the patient. Daughter at bedside states that the patient used to smoke heavily when she was younger. Solu-Medrol also ordered for the patient. Chest x-ray negative. Labs within normal limits. Leukocytosis 7.62. Hemoglobin 12.2. Electrolytes within normal limits. Cardiac enzymes negative. Metabolic profile negative. Procalcitonin negative. Influenza COVID and RSV is still pending. [facility] given her hypoxia and wheezing. 2158: Patient is COVID-positive. Oxygen saturations are stable on supplemental oxygen via nasal cannula. IV steroids were ordered for the patient. Patient admitted to Dr. Lock team. Impression & Plan Hypoxia, COVID-19 Discharge Plan Visit Data Chief Complaint: Illness Stated Complaint: LOW GRADE TEMP, COUGH ED Provider: Gentry Govea Discharge Problem: Hypoxia, COVID-19 Patient Disposition: Admitted As Inpatient Forms Stand Alone Forms: My [facility] Prescriptions Prescriptions: No Action (DME) blood-glucose meter [OneTouch Ultra2 Meter] Kit See Rx Instructions .Route Qty: 1 0RF Rx Instructions: check sugar bid (DME) Affirm Pads Pad See Rx Instructions .ROUTE .MEDSUPPLY Qty: 400 5RF Rx Instructions: Patient uses 10-12 per day inside brief for incontinence atorvastatin 20 mg tablet 20 mg PO QPM Qty: 90 1RF (DME) Wheelchair (Manual) Device See Rx Instructions .Route Qty: 1 0RF Rx Instructions: WHEELCHAIR WITH LEG RESTS. cetirizine 10 mg tablet 10 mg PO DAILY Qty: 90 3RF carvedilol [Coreg] 6.25 mg tablet 6.25 mg PO BID Qty: 180 1RF Rx Instructions: must administer with a meal/food (DME) pen needle, diabetic [BD Ultra-Fine Mini Pen Needle] 31 gauge x 3/16" needle See Rx Instructions .ROUTE .MEDSUPPLY Qty: 100 2RF Rx Instructions: DX E11.9 injecting twice daily lisinopril 20 mg tablet 20 mg PO QAM Qty: 90 1RF Myrbetriq 50 mg tablet extended release 24 hr 50 mg PO QAM Qty: 90 1RF Rx Instructions: Start with 25 mg x 1 week then increase to 50 mg. 2 months of samples given. potassium chloride 10 mEq tablet extended release 10 meq PO QAM Qty: 90 1RF (DME) Comfort Shield Adult Diaper Misc See Rx Instructions .Route Qty: 60 12RF Rx Instructions: SIZE XL for Incontinence (DME) Mattress (Air or other) Misc See Rx Instructions .Route Qty: 1 0RF Rx Instructions: AIR MATTRESS paroxetine HCl [Paxil CR] 25 mg tablet extended release 24 hr 50 mg PO QAM 90 Days Qty: 180 1RF (DME) washable pads See Rx Instructions .Route .MEDSUPPLY Qty: 30 5RF Rx Instructions: WASHABLE PADS Levemir FlexPen 100 unit/mL (3 mL) insulin pen 14 unit subcut BID Qty: 15 1RF Eliquis 5 mg tablet 5 mg PO BID Qty: 180 1RF mirtazapine 15 mg tablet 15 mg PO QPM Qty: 30 5RF memantine 5 mg tablet 5 mg PO BID Qty: 60 5RF (DME) OneTouch Ultra Test Strip See Rx Instructions .Route Qty: 100 5RF Rx Instructions: check sugar bid (DME) lancets [OneTouch Delica Lancets] 33 gauge misc See Rx Instructions .Route Qty: 100 3RF Rx Instructions: check sugar bid omeprazole 40 mg capsule,delayed release(DR/EC) 40 mg PO DAILY Qty: 90 2RF famotidine 20 mg tablet 20 mg PO DAILY PRN (Reason: acid reflux) Qty: 90 1RF ondansetron 4 mg tablet,disintegrating 4 mg PO Q6H PRN (Reason: nausea and vomiting) Qty: 30 0RF mecobalamin (vitamin B12) 1,000 mcg tablet,disintegrating 1,000 mcg PO QAM [id number]-kqjbvrrk-[id number] Tablet 1 tab PO DAILY Referrals Referrals: Daniela Neves DO [Primary Care Provider] -
[2022-10-13] MEDS ORDERED: SODIUM CHLORIDE 0.9% 1000ML 500 ML IV ONE (20:34)
[2022-10-13] MEDS ORDERED: methylPREDNISolone 125 MG/2 ML VIAL IV STA (20:44)
--- NOTE | 2022-10-13 21:35 | History & Physical Report ---
Date of Service October 13, 2022 Assessment & Plan (1) Acute respiratory failure with hypoxia: Plan: -Pt hypoxic on admission and requiring supplemental O2. CXR without evidence of acute process. Respiratory failure likely 2/2 COVID -Continue supplemental O2, goal > 90% -Pulmonary toilet- flutter valve, IS -She does have a distant but extensive smoking history- quit 40 years prior but smoked heavily before then. Given her wheezing on exam, there may be an element of underlying COPD with exacerbation- as such, continue duoneb q4 and steroid therapy -Deferring antibiotic coverage for pneumonia at present. Can consider azithromycin for anti-inflammatory effect but I do suspect COVID is driving the majority of her symptoms and not COPD exacerbation as she may not have this diagnosis to begin with (2) COVID-19: Plan: -COVID+ on admission. Pt not nvaccinated. -Given her hypoxia and acutely worsening symptoms over past few days, will initiate treatment -Solumedrol 125 mg IV given in ER. Continue dexamethasone 6 mg IV daily x9 days or until discharge. Pantoprazole for GI prophylaxis -Remdesivir ordered for 5 days- monitor renal function, LFTs -Isolation precautions (3) Altered mental status: Plan: -Likely due to acute COVID infection in setting of known dementia -Expect improvement as pt continues COVID treatment (4) Dementia: Plan: -Holding home memantine given mental status and aspiration history/risk -Reorientation, redirection- avoid benzodiazepines. Antipsychotics PRN for acute agitation (5) At risk for aspiration: Plan: -Known history of previous aspiration and CVA -She was advised to have soft diet by SS team at [place] -Speech consult ordered -Holding non-essential home medications given mental status and aspiration history/risk, resume as able (6) Weakness: Plan: -Chronic deconditioning in setting of multiple recent illnesses, hospitalizations -PT/OT, anticipate need for placement once acute illness resolves (7) Paroxysmal atrial fibrillation: Plan: -History of pAF, currently on Eliquis -NSR on admission via monitor and EKG, rate-controlled -Continue Eliquis (8) Diastolic CHF: Plan: -Last TTE in 10/2021 with EF 60-65% -Currently I do not suspect volume overload and CXR on admission without evidence of such -Monitor volume status (9) Hypertension: Plan: -BP elevated to 200s/100s on admission -Suspect secondary to physiologic stress, expect further rise while on IV steroids -Continue home lisinopril, Coreg (10) Diabetes: Plan: -Insulin dependent, last A1C of 9.3% in 07/2022 -BSG 203 on admission -Expect elevated BSGs while on steroid therapy -Lantus 10u BID, SSI- adjust as needed pending BSG monitoring (11) Hyperlipidemia: Plan: --Holding statin given mental status and aspiration history/risk (12) Depression: Plan: -Holding home medications given mental status and aspiration history/risk (13) GERD without esophagitis: Plan: -Home omeprazole/famotidine held as above due to NPO + aspiration risk -Pantoprazole 40 mg IV daily while in hospital and receiving steroids Plan FENGI: NPO pending SS evaluation Code status: Full DVT ppx: Eliquis Isolation: COVID Dispo: Medical/surgical with telemetry History of Present Illness Chief Complaint: Cough Primary Care Provider: Daniela Neves, DO 77 yo F with PMH pAF on Eliquis, HFpEF, IDDM2, HTN, HLD, GERD, anxiety, dementia, history of CVA and aspiration, multiple recent hospitalizations for hypoxia presenting with cough. History obtained from daughter. Pt has had multiple hospitalizations over past few months including [facility] 08/04- 08/07 for acute hypoxic respiratory failure due to CAP. Again admitted to [facility] 08/12-08/14 for hypoxia but due to influenza. Admitted 10/03- 10/06 at [place] again due to R middle lobe CAP. Pt was treated with antibiotics, O2 and transitioned to RA by time of discharge, sent home on azithromycin and cefuroxime- completed antibiotics by 10/11. She did improve initially but started to worsen in the evening of 10/11. She has had progressively worsening productive cough along with generalized weakness, confusion and difficulty eating. She was febrile at home with Tmax 100.4 F and was seen by PCP on 10/13, where she was noted to be febrile in the office to 38.1 C. She was advised to come to ED for further evaluation. Pt arrived to ED with BP elevated 200s/100s, HR 90s, afebrile. CBC, BMP unremarkable. Glucose 204. EKG with NSR, no ST changes. CXR without evidence of vascular congestion or pneumonia. COVID+. She was noted to be wheezing and received 125 mg IV Solumedrol along with albuterol nebulizer treatments x2 along with NSS IVF 500 ccs. She was later hypoxic to 88% and started on 2L NC. At time of my evaluation, pt was laying in bed disoriented and unable to engage meaningfully in interview. Daughter provided history. Allergies Allergy/AdvReac Type Severity Reaction Status Date / Time pineapple Allergy Intermediate Swelling Verified 10/13/22 16:21 adhesive tape Allergy Unknown skin Verified 10/13/22 23:55 irritation ciprofloxacin [From Cipro] Allergy Unknown Unknown Verified 10/13/22 16:21 Penicillins Allergy Unknown Unknown Verified 10/13/22 16:21 Home Medications Medication Instructions Recorded Confirmed Type blood-glucose meter ([facility] GorillaTouch #1 ea 07/19/21 10/13/22 Rx Ultra2 Meter kit) blood sugar diagnostic ([facility] GorillaTouch #100 ea 09/23/21 10/13/22 Rx Ultra Test strips) lancets 33 gauge (OneTouch Delica #100 ea 09/23/21 10/13/22 Rx Lancets) mecobalamin (vitamin B12) 1,000 1,000 mcg PO QAM 11/29/21 10/13/22 History mcg disintegrating tablet,sublingual incontinence pad, liner, disp #400 ea 01/05/22 10/13/22 Rx (Affirm Pads) atorvastatin 20 mg tablet 20 mg PO QPM #90 tabs 02/08/22 10/13/22 Rx Wheelchair (Manual) #1 ea 02/23/22 10/13/22 Rx cetirizine 10 mg tablet 10 mg PO DAILY #90 tabs 03/24/22 10/13/22 Rx omeprazole 40 mg capsule,delayed 40 mg PO DAILY #90 caps 04/21/22 10/13/22 Rx release lisinopril 20 mg tablet 20 mg PO QAM #90 tabs 05/23/22 10/13/22 Rx mirabegron 50 mg tablet,extended 50 mg PO QAM #90 tabs 05/23/22 10/13/22 Rx release 24 hr (Myrbetriq) pen needle, diabetic 31 gauge x #100 ea 05/23/22 10/13/22 Rx 3/16" (BD Ultra-Fine Mini Pen Needle) potassium chloride 10 mEq 10 meq PO QAM #90 tabs 06/06/22 10/13/22 Rx tablet,extended release Mattress (Air or other) #1 ea 06/29/22 10/13/22 Rx diaper,brief,adult,disposable #60 ea 06/29/22 10/13/22 Rx (Comfort Shield Adult Diaper) Paxil CR 25 mg tablet,extended 50 mg PO QAM 90 days #180 tabs 07/25/22 10/13/22 Rx release (paroxetine HCl) pdszgrshpjjr-owbcerpq-lonrmo tablet 1 tab PO DAILY 08/04/22 10/13/22 History memantine 5 mg tablet 5 mg PO BID #60 tabs 09/16/22 10/13/22 Rx mirtazapine 15 mg tablet 15 mg PO QPM #30 tabs 09/16/22 10/13/22 Rx washable pads #30 ea 09/20/22 10/13/22 Rx insulin detemir U-100 100 unit/mL 14 unit (0.14 mL) subcut BID #15 mL 09/23/22 10/13/22 Rx (3 mL) subcutaneous pen (Levemir FlexPen) famotidine 20 mg tablet 20 mg PO DAILY PRN acid reflux #90 10/11/22 10/13/22 Rx tabs ondansetron 4 mg disintegrating 4 mg PO Q6H PRN nausea and 10/11/22 10/13/22 Rx tablet vomiting #30 tabs apixaban 5 mg tablet (Eliquis) 5 mg PO BID #180 tabs 10/12/22 10/13/22 Rx carvedilol 6.25 mg tablet (Coreg) 6.25 mg PO BID #180 tabs 10/14/22 Rx Past Med/Surg History Medical History Atrial fibrillation [place] 10/16/2021-PLACED ON ELIQUIS F/U DR CHAUDHARY Avascular necrosis of bone of left hip 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-REMOVED WITH HYSTERECTOMY Cholecystitis DRAIN TUBE IN PLACE FROM GALL BLADDER Chronic venous insufficiency COVID-19 [facility] 08/18/2021-PNEUMONIA Dementia Depression Diabetes IDDM Diastolic CHF GERD (gastroesophageal reflux disease) GERD without esophagitis History of CVA (cerebrovascular accident) L NANCY ischemic stroke 12/2018 History of gastroesophageal reflux (GERD) Hyperlipidemia Hypertension Osteoporosis Urinary incontinence Surgical History History of surgical removal of skin lesion from buttock Hx laparoscopic cholecystectomy (12/01/21) Robotic Laparoscopic Cholecystectomy, robotic laparoscopic lysis of adhesions applicable) - Jc Smith, DO, FACS S/P cataract surgery S/P hysterectomy S/P ORIF (open reduction internal fixation) fracture (09/2019) L hip S/P tonsillectomy Status post surgery tumor excision Status post surgery (07/2016) L finger tip removal d/t osteomyelitis Family History Mother Throat cancer Ovarian cancer Breast cancer Mouth cancer Father Heart disease Myocardial infarction Cancer Daughter Diabetes Breast cancer Family history of reaction to anesthesia PONV Other Coronary heart disease Denies family history of Colon cancer Prostate cancer Social History Smoking Status: Never smoker Second Hand Exposure: No; Hx Alcohol Use: No Hx Substance Use: No Preferred Language: Latvian Communication Ability: Impaired Visual Impairment: Partially Limited Hearing Ability: Normal Map Drafter Required: No Beliefs That Will Affect Care: None marital status: / Current Living Situation: Alone Current Living Situation Comment: Lives at home alone w/ 24 Hour caregiver current occupational status: retired How many Children do You have: 5 Feels Safe at Home: Yes Safety Concerns: Feels Safe At This Time Safety Concerns Comment: DIFFICULTY WALKING DUE LOOSE LEFT HIP PROSTHESIS/DEMENTIA Diet Comment: regular caffeine: No during the past year weight has: decreased > 10 lbs Dental Care, Regularly: No Physical Activity Frequency: Does not Exercise Seatbelt Use: always Sunscreen Use: No Assistive Devices: Hospital Bed, Stair Lift, Walker and Wheelchair Assistive Devices Comment: Pt. came w/ personal wheelchair, daughter will bring home Review of Systems Review of Systems: Per HPI Physical Exam Constitutional: Elderly female laying in bed, appears weak Neck: normal visual inspection Respiratory: normal respiratory effort and + cough (moist harsh cough) Auscultation: + rhonchi (R mid and RLL) and + wheezes (expiratory) Cardiovascular: Rate/Rhythm: regular rate and regular rhythm Heart Sounds: normal S1 and normal S2 Extremities: no edema Gastrointestinal (Abdomen): Soft, nontender, nondistended Neurologic: Lethargic, tracks with eyes, non-verbal (not her baseline) Psychiatric: Eye Contact: + poor eye contact Lymphatic: no cervical lymphadenopathy Results & Data Results & Data ([facility]) Vital Signs (Past 12 Hours) Vital Signs Temp Pulse Pulse Resp BP BP Pulse Ox 10/13/22 20:39 88 L 10/13/22 19:11 91 H 10/13/22 18:58 97 H 24 206/113 H 98 10/13/22 17:52 37 C 96 H 18 201/99 H 95 O2 Del Method O2 Flow Rate 10/13/22 20:39 Room Air 0 10/13/22 19:11 10/13/22 18:58 Room Air 10/13/22 17:52 Room Air Supervising Physician Co-Signing Physician Notes Attending addendum: I have physically seen this patient, have supervised the medical residents activities, and agree with the H&P unless as otherwise noted. Assessment and Plan: Acute respiratory failure with hypoxia/COVID-19 infection- She had already been given methylprednisolone 125 mg IV and DuoNeb's x2 in the ED Placed on dexamethasone 6 mg IV daily Remdesivir IV per protocol COVID-19 isolation Had just completed a course of azithromycin in the outpatient setting At risk for aspiration pneumonia, n.p.o. except essential medications, consult speech therapy Altered mental status/underlying dementia- Likely issue with underlying dementia being aggravated by acute illness If control issues, will place on Zyprexa 5 mg IM as needed Generalized weakness- Expect to worsen due to illness Consult PT/OT Would likely need rehab placement post admission Paroxysmal atrial fibrillation/hypertension/diastolic CHF- Continue Eliquis, lisinopril and Coreg Diabetes mellitus- Glucose 203 on admission Follow closely while on steroids Sliding scale insulin GERD without esophagitis- Pantoprazole 40 mg IV daily Remaining orders and notations as noted Resident Activity Tracking Resident Involvement: Resident Care Provided Care Provided: Adult Hospital Medicine (9) Hypertension Hypertension type: essential hypertension Qualified Code(s): I10 - Essential (primary) hypertension (10) Diabetes Diabetes mellitus complication status: with unspecified complications Diabetes mellitus longterm insulin use: unspecified longterm insulin use status Diabetes mellitus type: type 2 Qualified Code(s): E11.8 - Type 2 diabetes mellitus with unspecified complications (11) Hyperlipidemia Hyperlipidemia type: unspecified Qualified Code(s): E78.5 - Hyperlipidemia, unspecified
[2022-10-13 21:39] LABS: Influenza A virus by PCR Negative (Neg); Influenza B virus by PCR Negative (Neg); RSV by PCR Negative (Neg)
[2022-10-13 21:45] LABS: SARS CoV2 RNA(COVID-19) Ceph POSITIVE (Negative)
[2022-10-13 23:18] LABS: Appearance Urine Clear (Clear); Bacteria Urine Automated Negative (Negative); Bilirubin Urine Negative (Negative); Blood Urine 1+ (Negative); Cast Urine Automated 0 /lpf (0-5); Color Urine Yellow; Glucose Urine UA Negative (Negative); Ketones Urine Negative (Negative); Leukocyte Esterase Urine Negative (Negative); Nitrite Urine Negative (Negative); Protein Urine 1+ (Negative); Specific Gravity Urine 1.018 (1.000-1.030); Urobilinogen Urine Negative (Negative); WBC Urine Automated 0 /hpf (0-5)
[2022-10-13] MEDS ORDERED: CARBOHYDRATES FOR HYPOGLYCEMIA PO PRN (23:53)
[2022-10-13] MEDS ORDERED: GLUCOSE 40% GEL 15 GM TUBE PO PRN (23:53)
[2022-10-13] MEDS ORDERED: DEXTROSE 50% 50 ML SYRINGE IV PRN (23:53)
[2022-10-13] MEDS ORDERED: GLUCAGON FOR INJ 1 MG VIAL SQ PRN (23:53)
[2022-10-13] MEDS ORDERED: GLUCOSE 10 TAB/TUBE PO PRN (23:53)
[2022-10-13] MEDS ORDERED: REMDESIVIR 200 MG in SODIUM CHLORIDE 0.9% 210 ML IV STA (23:53)
[2022-10-14] MEDS: ALBUT/IPRATROP 3MG/0.5MG NEB 3 ML VIAL NEB SCH ×7 (00:19→23:16)
[2022-10-14] MEDS: carvediloL 6.25 MG TAB PO SCH ×3 (00:30→20:57)
[2022-10-14] MEDS: APIXABAN 5 MG TABLET PO SCH ×3 (00:31→20:57)
[2022-10-14 06:36] LABS: Hematocrit (blood only) 36.5 % (37.0-47.0); Hemoglobin 11.6 g/dl (12.0-16.0); Mean Corpuscular Hemoglobin 25.1 pg (25.0-34.0); Mean Corpuscular Hgb Conc 31.8 g/dL (32.0-36.0); Mean Platelet Volume 9.6 fL (9.4-12.4); Platelet Count 169 K/uL (130-400); RDW Standard Deviation 39.8 fL (36.4-46.3); Red Blood Count 4.62 M/uL (4.20-5.40)
[2022-10-14 07:18] LABS: Albumin Globulin Ratio 1.2 (0.9-2); Albumin Level 3.7 gm/dl (3.4-5.0); BUN Creatinine Ratio 21.2 (10-20); Bilirubin,Total 0.5 mg/dl (0.2-1.0); Calcium 8.8 mg/dl (8.5-10.1); Creatinine Clr Calc Pharmacy 51.8 ml/min; Est GFR (African American) 75.5 ml/min; Est GFR (Non-African American) 65.2 ml/min; Globulin 3.1 gm/dl (2.5-4.0); Magnesium 1.8 mg/dl (1.7-2.4); Potassium 4.2 mmol/L (3.5-5.1); Total Protein 6.8 gm/dl (6.0-8.3)
[2022-10-14] MEDS: INSULIN ASPART PER UNIT SC SCH ×4 (08:10→20:34)
[2022-10-14] MEDS: LANTUS PER UNIT CHARGE SQ SCH ×2 (08:10→20:35)
[2022-10-14] MEDS: dexAMETHasone 6 MG in SYRINGE 0 ML IV SCH (08:18)
[2022-10-14] MEDS: lisinopril 20 MG TAB PO SCH (08:19)
--- NOTE | 2022-10-14 11:36 | Electrocardiogram Report ---
Test Reason : Blood Pressure : / mmHG Vent. Rate : 098 BPM Atrial Rate : 098 BPM P-R Int : 138 ms QRS Dur : 076 ms QT Int : 358 ms P-R-T Axes : 033 -07 054 degrees QTc Int : 457 ms Poor data quality, interpretation may be adversely affected Normal sinus rhythm Poor R wave progression, consider anterior NH vs. lead placement vs. LVH Abnormal ECG When compared with ECG of 04-AUG-2022 18:51, No significant change was found Confirmed by Everton Brandon ([id number]) on 10/14/2022 11:36:03 AM Referred By: Daniela Neves Confirmed By:Everton Brandon
[2022-10-14] MEDS: PANTOprazole 40 MG in SYRINGE 0 ML IV SCH (12:17)
--- NOTE | 2022-10-14 17:37 | Hospitalist Progress Note ---
Date of Service October 14, 2022 Assessment & Plan (1) Acute respiratory failure with hypoxia: Plan: -Pt hypoxic on admission and requiring supplemental O2. CXR without evidence of acute process. Respiratory failure likely 2/2 COVID -Continue supplemental O2, goal > 90% -Pulmonary toilet- flutter valve, IS -She does have a distant but extensive smoking history- quit 40 years prior but smoked heavily before then. Given her wheezing on exam, there may be an element of underlying COPD with exacerbation- as such, continue duoneb q4 and steroid therapy -Deferring antibiotic coverage for pneumonia at present. Can consider azithromycin for anti-inflammatory effect but I do suspect COVID is driving the majority of her symptoms and not COPD exacerbation 10/14/2022-continue close monitoring Patient presently on remdesivir along with Decadron Monitor oxygen saturation with pulse oximetry monitoring (2) COVID-19: Plan: -COVID+ on admission. Pt not nvaccinated. -Given her hypoxia and acutely worsening symptoms over past few days, will initiate treatment -Solumedrol 125 mg IV given in ER. Continue dexamethasone 6 mg IV daily x9 days or until discharge. Pantoprazole for GI prophylaxis -Remdesivir ordered for 5 days- monitor renal function, LFTs -Isolation precautions (3) Altered mental status: Plan: -Likely due to acute COVID infection in setting of known dementia -Expect improvement as pt continues COVID treatment (4) Dementia: Plan: -Holding home memantine given mental status and aspiration history/risk -Reorientation, redirection- avoid benzodiazepines. Antipsychotics PRN for acute agitation (5) Paroxysmal atrial fibrillation: Plan: -History of pAF, currently on Eliquis -NSR on admission via monitor and EKG, rate-controlled -Continue Eliquis (6) Diastolic CHF: Plan: -Last TTE in 10/2021 with EF 60-65% -Currently I do not suspect volume overload and CXR on admission without evidence of such -Monitor volume status (7) At risk for aspiration: Plan: -Known history of previous aspiration and CVA -She was advised to have soft diet by SS team at [facility] -Speech consult ordered -Holding non-essential home medications given mental status and aspiration history/risk, resume as able (8) Weakness: Plan: -Chronic deconditioning in setting of multiple recent illnesses, hospitalizations -PT/OT, anticipate need for placement once acute illness resolves (9) Hypertension: Plan: -BP elevated to 200s/100s on admission -Suspect secondary to physiologic stress, expect further rise while on IV steroids -Continue home lisinopril, Coreg (10) Diabetes: Plan: -Insulin dependent, last A1C of 9.3% in 07/2022 -BSG 203 on admission -Expect elevated BSGs while on steroid therapy -Lantus 10u BID, SSI- adjust as needed pending BSG monitoring (11) Hyperlipidemia: Plan: --Holding statin given mental status and aspiration history/risk (12) Depression: Plan: -Holding home medications given mental status and aspiration history/risk (13) GERD without esophagitis: Plan: -Home omeprazole/famotidine held as above due to NPO + aspiration risk -Pantoprazole 40 mg IV daily while in hospital and receiving steroids Plan FENGI: NPO pending SS evaluation Code status: Full DVT ppx: Eliquis Isolation: COVID Dispo: Medical/surgical with telemetry Admission and Anticipated Discharge Date Admission Date: October 13, 2022 Subjective Patient seen and examined No chest pain noted Physical Exam Physical Exam: Head and ENT no thyroid enlargement trachea midline Cardiovascular S1-S2 are normal no S3 Lungs bilateral air entry fair no wheezing Abdomen soft nondistended positive bowel sounds no rebound tenderness Extremity shows trace edema Neurologically no focal deficits Skin shows no rash no cyanosis Results & Data Results & [facility] ([facility]) Vital Signs (Past 12 Hours) Vital Signs Temp Pulse Pulse Resp BP Pulse Ox Pulse Ox 10/14/22 15:28 74 10/14/22 07:00 70 10/14/22 15:21 36.8 C 66 19 131/73 91 10/14/22 15:15 70 18 91 10/14/22 13:16 93 10/14/22 11:49 36.6 C 67 18 114/70 96 10/14/22 11:16 94 10/14/22 11:17 68 18 96 10/14/22 10:10 10/14/22 10:10 10/14/22 07:39 36.7 C 75 18 151/85 H 96 10/14/22 07:19 71 16 96 Pulse Ox Pulse Ox O2 Del Method O2 Del Method O2 Flow Rate O2 Flow Rate 10/14/22 15:28 10/14/22 07:00 10/14/22 15:21 Room Air 10/14/22 15:15 Room Air 10/14/22 13:16 94 10/14/22 11:49 Nasal Cannula 2 10/14/22 11:16 10/14/22 11:17 Nasal Cannula 2 10/14/22 10:10 Room Air 2 10/14/22 10:10 95 Nasal Cannula 2 10/14/22 07:39 Nasal Cannula 2 10/14/22 07:19 Nasal Cannula 2 Laboratory Results Short CBC 10/14/22 Range/Units 05:45 WBC 5.60 (4.8-10.8) K/ul Hgb 11.6 L (12.0-16.0) g/dl Hct 36.5 L (37.0-47.0) % Plt Count 169 (130-400) K/uL BMP 10/14/22 05:45 Sodium 136 Potassium 4.2 Chloride 102 Carbon Dioxide 27 BUN 18 Creatinine 0.85 Glucose 373 H* Calcium 8.8 Liver Function 10/14/22 Range/Units 05:45 Total Bilirubin 0.5 (0.2-1.0) mg/dl AST 18 (13-39) U/L ALT 14 (7-52) U/L Alkaline Phosphatase 128 H (34-104) U/L Albumin 3.7 (3.4-5.0) gm/dl PG Care Time/CCT Total # of Minutes Spent Total Time Spent with Patient: Total time spent is greater than 50% in coordination of care (as documented) at patient's floor/unit and/or counseling patient: Coding Level of Care Code 03465 SUB INP/OBS CARE MIN Diagnoses Acute respiratory failure with hypoxia J96.01 COVID-19 U07.1 Altered mental status R41.82 Dementia F03.90 Paroxysmal atrial fibrillation I48.0 Diastolic CHF I50.30 At risk for aspiration Z91.89 Weakness R53.1 Hypertension I10 Hypertension type: essential hypertension Diabetes E11.8 Diabetes mellitus type: type 2 Diabetes mellitus jail insulin use: unspecified labor arbitrator insulin use status Diabetes mellitus complication status: with unspecified complications Hyperlipidemia E78.5 Hyperlipidemia type: unspecified Depression F32.9 GERD without esophagitis K21.9 (9) Hypertension Hypertension type: essential hypertension Qualified Code(s): I10 - Essential (primary) hypertension (10) Diabetes Diabetes mellitus type: type 2 Diabetes mellitus jail insulin use: unspecified labor arbitrator insulin use status Diabetes mellitus complication status: with unspecified complications Qualified Code(s): E11.8 - Type 2 diabetes mellitus with unspecified complications (11) Hyperlipidemia Hyperlipidemia type: unspecified Qualified Code(s): E78.5 - Hyperlipidemia, unspecified
--- NOTE | 2022-10-14 20:05 | Billing Data ---
Date of Service October 14, 2022 Coding Level of Care Code 39719 INT INP/OBS CARE
[2022-10-14] MEDS ORDERED: COUGH DROP (SUGAR FREE) LOZ 24 LOZ/1 BOX BUCCAL PRN (20:26)
[2022-10-14] MEDS: REMDESIVIR 100 MG in SODIUM CHLORIDE 0.9% 230 ML IV SCH (20:44)
[2022-10-15] MEDS: ALBUT/IPRATROP 3MG/0.5MG NEB 3 ML VIAL NEB SCH ×6 (02:27→23:19)
[2022-10-15 06:33] LABS: Hematocrit (blood only) 34.8 % (37.0-47.0); Mean Corpuscular Hgb Conc 31.6 g/dL (32.0-36.0); Mean Corpuscular Volume 79.1 fL (80.0-100.0); Mean Platelet Volume 9.8 fL (9.4-12.4); Platelet Count 177 K/uL (130-400); RDW Coefficient of Variation 14.2 % (11.5-14.5); RDW Standard Deviation 41.1 fL (36.4-46.3); White Blood Count 6.17 K/ul (4.8-10.8)
[2022-10-15] MEDS: carvediloL 6.25 MG TAB PO SCH ×2 (07:59→21:18)
[2022-10-15] MEDS: lisinopril 20 MG TAB PO SCH (07:59)
[2022-10-15] MEDS: APIXABAN 5 MG TABLET PO SCH ×2 (07:59→21:18)
[2022-10-15] MEDS: INSULIN ASPART PER UNIT SC SCH ×4 (08:25→21:03)
[2022-10-15] MEDS: LANTUS PER UNIT CHARGE SQ SCH ×2 (08:25→21:03)
[2022-10-15] MEDS: dexAMETHasone 6 MG in SYRINGE 0 ML IV SCH (08:31)
[2022-10-15 09:52] LABS: Albumin Globulin Ratio 1.2 (0.9-2); Albumin Level 3.7 gm/dl (3.4-5.0); Bilirubin,Total 0.4 mg/dl (0.2-1.0); Calcium 9.2 mg/dl (8.5-10.1); Est GFR (African American) 67.7 ml/min; Est GFR (Non-African American) 58.5 ml/min; Potassium 3.9 mmol/L (3.5-5.1); Total Protein 6.7 gm/dl (6.0-8.3)
[2022-10-15] MEDS: PANTOprazole 40 MG in SYRINGE 0 ML IV SCH (11:30)
[2022-10-15] MEDS: haloperidoL 0.5 MG TAB PO PRN (15:02)
--- NOTE | 2022-10-15 19:45 | Hospitalist Progress Note ---
Date of Service October 15, 2022 Assessment & Plan (1) Acute respiratory failure with hypoxia: Plan: -Pt hypoxic on admission and requiring supplemental O2. CXR without evidence of acute process. Respiratory failure likely 2/2 COVID -Continue supplemental O2, goal > 90% -Pulmonary toilet- flutter valve, IS -She does have a distant but extensive smoking history- quit 40 years prior but smoked heavily before then. Given her wheezing on exam, there may be an element of underlying COPD with exacerbation- as such, continue duoneb q4 and steroid therapy -Deferring antibiotic coverage for pneumonia at present. Can consider azithromycin for anti-inflammatory effect but I do suspect COVID is driving the majority of her symptoms and not COPD exacerbation 10/14/2022-continue close monitoring Patient presently on remdesivir along with Decadron Monitor oxygen saturation with pulse oximetry monitoring 10/15-patient continues to improve slowly Oxygen saturation has remained stable improved Discussed with patient's daughter regarding COVID being the primary cause And patient also has a tendency for aspiration and needs to be monitored closely for aspiration related symptoms WAREHOUSE MAN evaluation also recommends minced diet to prevent aspiration related symptoms (2) COVID-19: Plan: -COVID+ on admission. Pt not nvaccinated. -Given her hypoxia and acutely worsening symptoms over past few days, will initi ate treatment -Solumedrol 125 mg IV given in ER. Continue dexamethasone 6 mg IV daily x9 days or until discharge. Pantoprazole for GI prophylaxis -Remdesivir ordered for 5 days- monitor renal function, LFTs -Isolation precautions (3) Altered mental status: Plan: -Likely due to acute COVID infection in setting of known dementia -Expect improvement as pt continues COVID treatment (4) Dementia: Plan: -Holding home memantine given mental status and aspiration history/risk -Reorientation, redirection- avoid benzodiazepines. Antipsychotics PRN for acute agitation (5) Paroxysmal atrial fibrillation: Plan: -History of pAF, currently on Eliquis -NSR on admission via monitor and EKG, rate-controlled -Continue Eliquis (6) Diastolic CHF: Plan: -Last TTE in 10/2021 with EF 60-65% -Currently I do not suspect volume overload and CXR on admission without evidence of such -Monitor volume status (7) At risk for aspiration: Plan: -Known history of previous aspiration and CVA -She was advised to have soft diet by SS team at [facility] -Speech consult ordered -Holding non-essential home medications given mental status and aspiration history/risk, resume as able (8) Weakness: Plan: -Chronic deconditioning in setting of multiple recent illnesses, hospitalizations -PT/OT, anticipate need for placement once acute illness resolves (9) Hypertension: Plan: -BP elevated to 200s/100s on admission -Suspect secondary to physiologic stress, expect further rise while on IV steroids -Continue home lisinopril, Coreg (10) Diabetes: Plan: -Insulin dependent, last A1C of 9.3% in 07/2022 -BSG 203 on admission -Expect elevated BSGs while on steroid therapy -Lantus 10u BID, SSI- adjust as needed pending BSG monitoring (11) Hyperlipidemia: Plan: --Holding statin given mental status and aspiration history/risk (12) Depression: Plan: -Holding home medications given mental status and aspiration history/risk (13) GERD without esophagitis: Plan: -Home omeprazole/famotidine held as above due to NPO + aspiration risk -Pantoprazole 40 mg IV daily while in hospital and receiving steroids Plan FENGI: NPO pending SS evaluation Code status: Full DVT ppx: Eliquis Isolation: COVID Dispo: Medical/surgical with telemetry Admission and Anticipated Discharge Date Admission Date: October 13, 2022 Subjective Patient seen and examined Patient daughter at bedside Patient has intermittent coughing episodes Physical Exam Physical Exam: Head and ENT no thyroid enlargement trachea midline Cardiovascular S1-S2 are normal no S3 Lungs bilateral air entry fair no wheezing Abdomen soft nondistended positive bowel sounds no rebound tenderness Extremity shows trace edema Neurologically no focal deficits Skin shows no rash no cyanosis Results & Data Results & [facility] ([facility]) Vital Signs (Past 12 Hours) Vital Signs Temp Pulse Pulse Resp BP Pulse Ox O2 Del Method 10/15/22 19:00 88 16 95 Room Air 10/15/22 15:45 36.3 C L 87 18 158/98 H 95 Room Air 10/15/22 15:00 73 10/15/22 14:26 71 16 93 Room Air 10/15/22 11:30 36.6 C 63 18 145/73 H 95 Room Air 10/15/22 11:30 98 Room Air 10/15/22 11:54 36.7 C 63 18 183/72 H 95 Room Air 10/15/22 09:33 68 10/15/22 08:00 Nasal Cannula 10/15/22 07:57 36.6 C 70 20 163/81 H 91 Nasal Cannula O2 Flow Rate FiO2 10/15/22 19:00 21 10/15/22 15:45 10/15/22 15:00 10/15/22 14:26 10/15/22 11:30 10/15/22 11:30 2 10/15/22 11:54 10/15/22 09:33 10/15/22 08:00 2 10/15/22 07:57 3 PG Care Time/CCT Total # of Minutes Spent Total Time Spent with Patient: Total time spent is greater than 50% in coordination of care (as documented) at patient's floor/unit and/or counseling patient: Coding Level of Care Code 24862 SUB INP/OBS CARE 2/35MIN Diagnoses Acute respiratory failure with hypoxia J96.01 COVID-19 U07.1 Altered mental status R41.82 Dementia F03.90 Paroxysmal atrial fibrillation I48.0 Diastolic CHF I50.30 At risk for aspiration Z91.89 Weakness R53.1 Hypertension I10 Hypertension type: essential hypertension Diabetes E11.8 Diabetes mellitus complication status: with unspecified complications Diabetes mellitus chcf insulin use: unspecified chcf insulin use status Diabetes mellitus type: type 2 Hyperlipidemia E78.5 Hyperlipidemia type: unspecified Depression F32.9 GERD without esophagitis K21.9 (9) Hypertension Hypertension type: essential hypertension Qualified Code(s): I10 - Essential (primary) hypertension (10) Diabetes Diabetes mellitus complication status: with unspecified complications Diabetes mellitus chcf insulin use: unspecified chcf insulin use status Diabetes mellitus type: type 2 Qualified Code(s): E11.8 - Type 2 diabetes mellitus with unspecified complications (11) Hyperlipidemia Hyperlipidemia type: unspecified Qualified Code(s): E78.5 - Hyperlipidemia, unspecified
[2022-10-15] MEDS: REMDESIVIR 100 MG in SODIUM CHLORIDE 0.9% 230 ML IV SCH (21:17)
[2022-10-16] MEDS: ALBUT/IPRATROP 3MG/0.5MG NEB 3 ML VIAL NEB SCH ×6 (02:48→23:07)
[2022-10-16 07:28] LABS: Hematocrit (blood only) 34.7 % (37.0-47.0); Mean Corpuscular Hemoglobin 25.2 pg (25.0-34.0); Mean Corpuscular Hgb Conc 31.7 g/dL (32.0-36.0); Mean Corpuscular Volume 79.4 fL (80.0-100.0); Mean Platelet Volume 9.7 fL (9.4-12.4); Platelet Count 192 K/uL (130-400); RDW Coefficient of Variation 14.4 % (11.5-14.5); RDW Standard Deviation 41.5 fL (36.4-46.3); Red Blood Count 4.37 M/uL (4.20-5.40); White Blood Count 6.56 K/ul (4.8-10.8)
[2022-10-16 07:48] LABS: Albumin Globulin Ratio 1.3 (0.9-2); Albumin Level 3.7 gm/dl (3.4-5.0); BUN Creatinine Ratio 30.6 (10-20); Bilirubin,Total 0.4 mg/dl (0.2-1.0); Calcium 9.1 mg/dl (8.5-10.1); Creatinine Clr Calc Pharmacy 50.8 ml/min; Est GFR (African American) 75.5 ml/min; Est GFR (Non-African American) 65.2 ml/min; Globulin 2.8 gm/dl (2.5-4.0); Potassium 3.8 mmol/L (3.5-5.1); Total Protein 6.5 gm/dl (6.0-8.3)
[2022-10-16] MEDS: lisinopril 20 MG TAB PO SCH (08:22)
[2022-10-16] MEDS: APIXABAN 5 MG TABLET PO SCH ×2 (08:22→20:10)
[2022-10-16] MEDS: haloperidoL 0.5 MG TAB PO PRN (08:22)
[2022-10-16] MEDS: carvediloL 6.25 MG TAB PO SCH ×2 (08:22→20:09)
[2022-10-16] MEDS: INSULIN ASPART PER UNIT SC SCH ×4 (08:33→20:59)
[2022-10-16] MEDS: LANTUS PER UNIT CHARGE SQ SCH ×2 (08:34→21:00)
[2022-10-16] MEDS: dexAMETHasone 6 MG in SYRINGE 0 ML IV SCH (08:36)
[2022-10-16] MEDS: PANTOprazole 40 MG in SYRINGE 0 ML IV SCH (12:17)
--- NOTE | 2022-10-16 13:54 | CT Scan Report ---
CT chest diagnostic wo con CT DOSE: 267.15 mGy.cm CLINICAL HISTORY: 77 years-old Female with r/o pnx. Acute shortness of breath TECHNIQUE: Multiaxial CT images of the chest were performed without contrast. A dose lowering techni que was utilized adhering to the principles of ALARA. COMPARISON: CTA chest 08/04/2022 FINDINGS: Moderate cardiomegaly without pericardial effusion. Extensive coronary artery calcification s. Atherosclerosis of the thoracic aorta without aneurysm. Mild dilation of the pulmonary artery sugg estive of pulmonary arterial hypertension. No thyroid nodule. Unchanged mediastinal and hilar lymphad enopathy with paratracheal lymph nodes measuring up to 1.2 cm. No pneumothorax, pleural effusion or overt pulmonary edema. Limited evaluation of the lungs secondary to upper extremities positioning and respiratory motion artifact. Mild linear consolidation within t he right middle lobe. Mild groundglass densities of the right upper lobe with bilateral subtle mosaic attenuation. Decreased AP dimension of the trachea. No acute processes of the upper abdomen. The spleen and liver appear enlarged. Unremarkable soft tiss ues. No acute fracture identified. Partially imaged T12 compression deformity with 4 mm retropulsion similar to prior. Mild T1-T3 spring plate compression deformities are chronic. IMPRESSION: 1. Mild linear consolidation of the right middle lobe with subtle groundglass densities of the right upper lobe. Findings may represent atelectasis versus a mild pneumonia 2. Mild air trapping. 3. Unchanged mediastinal and hilar lymphadenopathy. 4. Cardiomegaly without pulmonary edema. 5. Unchanged appearance of the thoracic compression deformities. ACT 112: Negative or not required by law. Electronically signed by: Dago Ramey M.D. 10/16/2022 1:51 PM
[2022-10-16] MEDS ORDERED: MELATONIN 3 MG TAB PO PRN (17:33)
--- NOTE | 2022-10-16 17:46 | Hospitalist Progress Note ---
Date of Service October 16, 2022 Assessment & Plan (1) Acute respiratory failure with hypoxia: Plan: -Pt hypoxic on admission and requiring supplemental O2. CXR without evidence of acute process. Respiratory failure likely 2/2 COVID -Continue supplemental O2, goal > 90% -Pulmonary toilet- flutter valve, IS -She does have a distant but extensive smoking history- quit 40 years prior but smoked heavily before then. Given her wheezing on exam, there may be an element of underlying COPD with exacerbation- as such, continue duoneb q4 and steroid therapy -Deferring antibiotic coverage for pneumonia at present. Can consider azithromycin for anti-inflammatory effect but I do suspect COVID is driving the majority of her symptoms and not COPD exacerbation 10/14/2022-continue close monitoring Patient presently on remdesivir along with Decadron Monitor oxygen saturation with pulse oximetry monitoring 10/15-patient continues to improve slowly Oxygen saturation has remained stable improved Discussed with patient's daughter regarding COVID being the primary cause And patient also has a tendency for aspiration and needs to be monitored closely for aspiration related symptoms EDUCATIONAL TECHNOLOGIST evaluation also recommends minced diet to prevent aspiration related symptoms 10/16-patient oxygen saturation remained stable Discussed with patient's daughter and based on their request will obtain CT of the chest to assess ongoing progress Patient's family reported that patient was not compliant with her care while she was in an outside facility Need ongoing care to prevent aspiration related symptoms Continue remdesivir therapy along with steroids (2) COVID-19: Plan: -COVID+ on admission. Pt not nvaccinated. -Given her hypoxia and acutely worsening symptoms over past few days, will initiate treatment -Solumedrol 125 mg IV given in ER. Continue dexamethasone 6 mg IV daily x9 days or until discharge. Pantoprazole for GI prophylaxis -Remdesivir ordered for 5 days- monitor renal function, LFTs -Isolation precautions (3) Altered mental status: Plan: -Likely due to acute COVID infection in setting of known dementia -Expect improvement as pt continues COVID treatment (4) Dementia: Plan: -Holding home memantine given mental status and aspiration history/risk -Reorientation, redirection- avoid benzodiazepines. Antipsychotics PRN for acute agitation (5) Paroxysmal atrial fibrillation: Plan: -History of pAF, currently on Eliquis -NSR on admission via monitor and EKG, rate-controlled -Continue Eliquis (6) Diastolic CHF: Plan: -Last TTE in 10/2021 with EF 60-65% -Currently I do not suspect volume overload and CXR on admission without evidence of such -Monitor volume status (7) At risk for aspiration: Plan: -Known history of previous aspiration and CVA -She was advised to have soft diet by SS team at [facility] -Speech consult ordered -Holding non-essential home medications given mental status and aspiration history/risk, resume as able (8) Weakness: Plan: -Chronic deconditioning in setting of multiple recent illnesses, hospitalizations -PT/OT, anticipate need for placement once acute illness resolves (9) Hypertension: Plan: -BP elevated to 200s/100s on admission -Suspect secondary to physiologic stress, expect further rise while on IV steroids -Continue home lisinopril, Coreg (10) Diabetes: Plan: -Insulin dependent, last A1C of 9.3% in 07/2022 -BSG 203 on admission -Expect elevated BSGs while on steroid therapy -Lantus 10u BID, SSI- adjust as needed pending BSG monitoring (11) Hyperlipidemia: Plan: --Holding statin given mental status and aspiration history/risk (12) Depression: Plan: -Holding home medications given mental status and aspiration history/risk (13) GERD without esophagitis: Plan: -Home omeprazole/famotidine held as above due to NPO + aspiration risk -Pantoprazole 40 mg IV daily while in hospital and receiving steroids Plan FENGI: NPO pending SS evaluation Code status: Full DVT ppx: Eliquis Isolation: COVID Dispo: Medical/surgical with telemetry Admission and Anticipated Discharge Date Admission Date: October 13, 2022 Subjective Patient seen and examined Continues to have intermittent coughing episodes with food intake Otherwise no shortness of breath noted Physical Exam Physical Exam: Head and ENT no thyroid enlargement trachea midline Cardiovascular S1-S2 are normal no S3 Lungs bilateral air entry fair no wheezing few scattered rhonchi Abdomen soft nondistended positive bowel sounds no rebound tenderness Extremity shows trace edema Neurologically no focal deficits Skin shows no rash no cyanosis Results & Data Results & [facility]) Vital Signs (Past 12 Hours) Vital Signs Temp Pulse Pulse Resp BP Pulse Ox O2 Del Method 10/16/22 16:50 37.1 C 82 18 199/75 H 92 Room Air 10/16/22 15:37 70 18 92 Room Air 10/16/22 15:17 78 10/16/22 11:47 66 18 92 Room Air 10/16/22 08:00 Room Air 10/16/22 09:02 64 10/16/22 08:55 36.6 C 64 18 176/82 H 94 Room Air 10/16/22 08:29 68 18 192/80 H 94 Room Air 10/16/22 08:00 68 16 94 Room Air 10/16/22 07:55 36.8 C 69 18 198/107 H 96 Nasal Cannula O2 Flow Rate 10/16/22 16:50 10/16/22 15:37 10/16/22 15:17 10/16/22 11:47 10/16/22 08:00 10/16/22 09:02 10/16/22 08:55 10/16/22 08:29 10/16/22 08:00 10/16/22 07:55 2 Laboratory Results Short CBC 10/16/22 Range/Units 06:54 WBC 6.56 (4.8-10.8) K/ul Hgb 11.0 L (12.0-16.0) g/dl Hct 34.7 L (37.0-47.0) % Plt Count 192 (130-400) K/uL BMP 10/16/22 06:54 Sodium 141 Potassium 3.8 Chloride 106 Carbon Dioxide 30 BUN 26 H Creatinine 0.85 Glucose 111 H Calcium 9.1 Liver Function 10/16/22 Range/Units 06:54 Total Bilirubin 0.4 (0.2-1.0) mg/dl AST 27 (13-39) U/L ALT 17 (7-52) U/L Alkaline Phosphatase 92 (34-104) U/L Albumin 3.7 (3.4-5.0) gm/dl PG Care Time/CCT Total # of Minutes Spent Total Time Spent with Patient: Total time spent is greater than 50% in coordination of care (as documented) at patient's floor/unit and/or counseling patient: Coding Level of Care Code 95636 SUB INP/OBS CARE 2/35MIN Diagnoses Acute respiratory failure with hypoxia J96.01 COVID-19 U07.1 Altered mental status R41.82 Dementia F03.90 Paroxysmal atrial fibrillation I48.0 Diastolic CHF I50.30 At risk for aspiration Z91.89 Weakness R53.1 Hypertension I10 Hypertension type: essential hypertension Diabetes E11.8 Diabetes mellitus complication status: with unspecified complications Diabetes mellitus fci insulin use: unspecified emt intermediate insulin use status Diabetes mellitus type: type 2 Hyperlipidemia E78.5 Hyperlipidemia type: unspecified Depression F32.9 GERD without esophagitis K21.9 (9) Hypertension Hypertension type: essential hypertension Qualified Code(s): I10 - Essential (primary) hypertension (10) Diabetes Diabetes mellitus complication status: with unspecified complications Diabetes mellitus fci insulin use: unspecified fci insulin use status Diabetes mellitus type: type 2 Qualified Code(s): E11.8 - Type 2 diabetes mellitus with unspecified complications (11) Hyperlipidemia Hyperlipidemia type: unspecified Qualified Code(s): E78.5 - Hyperlipidemia, unspecified
[2022-10-16] MEDS: REMDESIVIR 100 MG in SODIUM CHLORIDE 0.9% 230 ML IV SCH (20:45)
[2022-10-16] MEDS ORDERED: OLANZAPINE 2.5 MG TAB PO SCH (21:00)
[2022-10-17] MEDS: ALBUT/IPRATROP 3MG/0.5MG NEB 3 ML VIAL NEB SCH ×2 (02:15→06:59)
[2022-10-17 07:26] LABS: Hematocrit (blood only) 33.7 % (37.0-47.0); Hemoglobin 10.6 g/dl (12.0-16.0); Mean Corpuscular Hemoglobin 25.2 pg (25.0-34.0); Mean Corpuscular Hgb Conc 31.5 g/dL (32.0-36.0); Mean Platelet Volume 9.8 fL (9.4-12.4); Platelet Count 183 K/uL (130-400); RDW Coefficient of Variation 14.3 % (11.5-14.5); RDW Standard Deviation 41.9 fL (36.4-46.3); Red Blood Count 4.21 M/uL (4.20-5.40); White Blood Count 5.51 K/ul (4.8-10.8)
[2022-10-17 07:49] LABS: Albumin Globulin Ratio 1.3 (0.9-2); Albumin Level 3.3 gm/dl (3.4-5.0); BUN Creatinine Ratio 27.7 (10-20); Bilirubin,Total 0.4 mg/dl (0.2-1.0); Est GFR (African American) 61.3 ml/min; Est GFR (Non-African American) 52.9 ml/min; Globulin 2.6 gm/dl (2.5-4.0); Potassium 4.1 mmol/L (3.5-5.1); Total Protein 5.9 gm/dl (6.0-8.3)
[2022-10-17] MEDS: INSULIN ASPART PER UNIT SC SCH ×2 (08:55→12:11)
[2022-10-17] MEDS: LANTUS PER UNIT CHARGE SQ SCH (08:56)
[2022-10-17] MEDS ORDERED: PANTOprazole 40 MG TAB PO SCH (09:00)
[2022-10-17] MEDS: dexAMETHasone 6 MG in SYRINGE 0 ML IV SCH (09:01)
[2022-10-17] MEDS: APIXABAN 5 MG TABLET PO SCH (09:01)
[2022-10-17] MEDS: carvediloL 6.25 MG TAB PO SCH (09:01)
[2022-10-17] MEDS: lisinopril 20 MG TAB PO SCH (09:02)
[2022-10-17] MEDS ORDERED: ALBUT/IPRATROP 3MG/0.5MG NEB 3 ML VIAL NEB PRN (10:50)
--- NOTE | 2022-10-17 12:06 | Discharge Summary ---
Date of Service October 17, 2022 Admission HPI Per Admitting Provider 77 yo F with PMH pAF on Eliquis, HFpEF, IDDM2, HTN, HLD, GERD, anxiety, dementia, history of CVA and aspiration, multiple recent hospitalizations for hypoxia presenting with cough. History obtained from daughter. Pt has had multiple hospitalizations over past few months including [facility] 08/04- 08/07 for acute hypoxic respiratory failure due to CAP. Again admitted to [facility] 08/12-08/14 for hypoxia but due to influenza. Admitted 10/03- 10/06 at [facility] again due to R middle lobe CAP. Pt was treated with antibiotics, O2 and transitioned to RA by time of discharge, sent home on azithromycin and cefuroxime- completed antibiotics by 10/11. She did improve initially but started to worsen in the evening of 10/11. She has had progressively worsening productive cough along with generalized weakness, confus ion and difficulty eating. She was febrile at home with Tmax 100.4 F and was seen by PCP on 10/13, where she was noted to be febrile in the office to 38.1 C. She was advised to come to ED for further evaluation. Pt arrived to ED with BP elevated 200s/100s, HR 90s, afebrile. CBC, BMP unremarkable. Glucose 204. EKG with NSR, no ST changes. CXR without evidence of vascular congestion or pneumonia. COVID+. She was noted to be wheezing and received 125 mg IV Solumedrol along with albuterol nebulizer treatments x2 along with NSS IVF 500 ccs. She was later hypoxic to 88% and started on 2L NC. At time of my evaluation, pt was laying in bed disoriented and unable to engage meaningfully in interview. Daughter provided history. Principal Diagnosis Acute COVID infection, acute hypoxic respiratory failure, acute exacerbation COPD, metabolic encephalopathy, uncontrolled hypertension Discharge Exam General-alert. Chronic disorientation due to baseline dementia. No fevers, no chills HEENT-head atraumatic and normocephalic, pupils equal and reactive to light, extraocular muscles intact Neck-no lymphadenopathy or thyromegaly, trachea midline Chest-clear to auscultation percussion. No rales wheezing or rhonchi Cardiac-regular rate and rhythm, normal S1 and S2 Abdomen-normal bowel sounds, nontender, no hepatosplenomegaly Extremities-no cyanosis, clubbing, or edema Neuro-cranial nerves II through XII intact, motor and sensory function within normal limits, strength symmetrical , no focal deficits Psych-normal affect, normal mood Discharge Data Allergies Allergy/AdvReac Type Severity Reaction Status Date / Time pineapple Allergy Intermediate Swelling Verified 10/13/22 16:21 adhesive tape Allergy Unknown skin Verified 10/13/22 23:55 irritation ciprofloxacin [From Cipro] Allergy Unknown Unknown Verified 10/13/22 16:21 Penicillins Allergy Unknown Unknown Verified 10/13/22 16:21 Consultations 10/13/22 20:52 ED Decision to Admit Stat Ordered Studies 10/16/22 10:24 CT chest without contrast [CT chest diagnostic wo con] Routine Hospital Course (1) Acute respiratory failure with hypoxia: -Pt hypoxic on admission and requiring supplemental O2. CXR without evidence of acute process. Respiratory failure likely 2/2 COVID -Continue supplemental O2, goal > 90% -Pulmonary toilet- flutter valve, IS -She does have a distant but extensive smoking history- quit 40 years prior but smoked heavily before then. Given her wheezing on exam, there may be an element of underlying COPD with exacerbation- as such, continue duoneb q4 and steroid therapy -Deferring antibiotic coverage for pneumonia at present. Can consider azithromycin for anti-inflammatory effect but I do suspect COVID is driving the majority of her symptoms and not COPD exacerbation 10/14/2022-continue close monitoring Patient presently on remdesivir along with Decadron Monitor oxygen saturation with pulse oximetry monitoring 10/15-patient continues to improve slowly Oxygen saturation has remained stable improved Discussed with patient's daughter regarding COVID being the primary cause And patient also has a tendency for aspiration and needs to be monitored closely for aspiration related symptoms PHOTOGRAPHER MODEL evaluation also recommends minced diet to prevent aspiration related symptoms 10/16-patient oxygen saturation remained stable Discussed with patient's daughter and based on their request will obtain CT of the chest to assess ongoing progress Patient's family reported that patient was not compliant with her care while she was in an outside facility Need ongoing care to prevent aspiration related symptoms Continue remdesivir therapy along with steroids 10/17-now on room air. Hypoxia resolved (2) COVID-19: -COVID+ on admission. Pt not nvaccinated. She was treated with intravenous steroids and remdesivir while hospitalized. Encourage vitamin D and zinc therapy at the time of discharge. She is now on room air. Her daughter was informed by phone todayOctober 17 (3) Altered mental status: Likely due to acute COVID infection in setting of known dementia. Supportive care (4) Dementia: Supportive care. Continue medication management. (5) Paroxysmal atrial fibrillation: currently on Eliquis. NSR on admission via monitor and EKG, rate-controlled. (6) Diastolic CHF: Last TTE in 10/2021 with EF 60-65%. Currently stable. Monitor intake and output. Continue current medication management (7) At risk for aspiration: Known history of previous aspiration and CVA. Appreciate speech therapy evaluation and recommendations. (8) Weakness: Chronic deconditioning in setting of multiple recent illnesses, hospitalizations. Treated with PT/OT while hospitalized. (9) Hypertension: Lisinopril discontinued. Hydralazine ordered todayOctober 17. Continue Coreg. (10) Diabetes: -Insulin dependent, last A1C of 9.3% in 07/2022. ADA diet. Sliding scale coverage. Basal insulin therapy (11) Hyperlipidemia: Holding statin given mental status and aspiration history/risk. Will resume at discharge (12) Depression: Medications held on admission. Restarted at discharge. (13) GERD without esophagitis: Treated with omeprazole/famotidine. Plan Discharge to home todayOctober 17. I spoke with her daughter by phone. She will continue vitamin D supplementation indefinitely and continue zinc supplementation for 1 week. Total Time Total Time Spent Total Time Spent (In Minutes): 40 minutes Discharge Plan Discharge Items Patient Disposition: Home - Home Health Services Reason For Visit: LOW GRADE TEMP, COUGH Discharge Diagnosis: COVID infection, acute hypoxic respiratory failure, acute exacerbation COPD, metabolic encephalopathy Activity: Resume your previous activity Non-emergency contact: Primary Care Provider Call non-emergency contact if: you have any medication questions Follow-up/Referrals: Daniela Neves DO [Primary Care Provider] - Diet: Carb Consistent or DM2 and Heart Healthy Addtl Attending Provider Instructions: Take vitamin D3 daily indefinitely. Take zinc supplement daily for 1 week Pending Studies at Discharge: No Stand-Alone Forms: My [employer], Smoking Cessation Medications and DC Order Prescriptions: New hydralazine 10 mg Tablet 10 mg PO QID Qty: 60 0RF olanzapine 2.5 mg Tablet 2.5 mg PO HS Qty: 0 0RF Continued (DME) blood-glucose meter [OneTouch Ultra2 Meter] Kit See Rx Instructions .Route Qty: 1 0RF Rx Instructions: check sugar bid (DME) Affirm Pads Pad See Rx Instructions .ROUTE .MEDSUPPLY Qty: 400 5RF Rx Instructions: Patient uses 10-12 per day inside brief for incontinence atorvastatin 20 mg tablet 20 mg PO QPM Qty: 90 1RF (DME) Wheelchair (Manual) Device See Rx Instructions .Route Qty: 1 0RF Rx Instructions: WHEELCHAIR WITH LEG RESTS. cetirizine 10 mg tablet 10 mg PO DAILY Qty: 90 3RF (DME) pen needle, diabetic [BD Ultra-Fine Mini Pen Needle] 31 gauge x 3/16" needle See Rx Instructions .ROUTE .MEDSUPPLY Qty: 100 2RF Rx Instructions: DX E11.9 injecting twice daily Myrbetriq 50 mg tablet extended release 24 hr 50 mg PO QAM Qty: 90 1RF Rx Instructions: Start with 25 mg x 1 week then increase to 50 mg. 2 months of samples given. potassium chloride 10 mEq tablet extended release 10 meq PO QAM Qty: 90 1RF (DME) Comfort Shield Adult Diaper Misc See Rx Instructions .Route Qty: 60 12RF Rx Instructions: SIZE XL for Incontinence (DME) Mattress (Air or other) Misc See Rx Instructions .Route Qty: 1 0RF Rx Instructions: AIR MATTRESS paroxetine HCl [Paxil CR] 25 mg tablet extended release 24 hr 50 mg PO QAM 90 Days Qty: 180 1RF (DME) washable pads See Rx Instructions .Route .MEDSUPPLY Qty: 30 5RF Rx Instructions: WASHABLE PADS Levemir FlexPen 100 unit/mL (3 mL) insulin pen 14 unit subcut BID Qty: 15 1RF Eliquis 5 mg tablet 5 mg PO BID Qty: 180 1RF carvedilol [Coreg] 6.25 mg tablet 6.25 mg PO BID Qty: 180 1RF Rx Instructions: must administer with a meal/food mirtazapine 15 mg tablet 15 mg PO QPM Qty: 30 5RF memantine 5 mg tablet 5 mg PO BID Qty: 60 5RF (DME) OneTouch Ultra Test Strip See Rx Instructions .Route Qty: 100 5RF Rx Instructions: check sugar bid (DME) lancets [OneTouch Delica Lancets] 33 gauge misc See Rx Instructions .Route Qty: 100 3RF Rx Instructions: check sugar bid omeprazole 40 mg capsule,delayed release(DR/EC) 40 mg PO DAILY Qty: 90 2RF famotidine 20 mg tablet 20 mg PO DAILY PRN (Reason: acid reflux) Qty: 90 1RF ondansetron 4 mg tablet,disintegrating 4 mg PO Q6H PRN (Reason: nausea and vomiting) Qty: 30 0RF mecobalamin (vitamin B12) 1,000 mcg tablet,disintegrating 1,000 mcg PO QAM [id number] Tablet 1 tab PO DAILY Discontinued lisinopril 20 mg tablet 20 mg PO QAM Qty: 90 1RF Discharge Orders: Discharge Order (Routine); Ordered 10/17/22 Ordered By: Mango Mendiola Admission Data Admit Date/Time: 10/13/22 22:04 Attending Provider: Mango Mendiola Admit Provider: Perlita Lopez Primary Care Provider: Daniela Neves Other Providers: Gamaliel [facility] Coding Level of Care Code 10668 INP/OBS DISCH >30 MIN Diagnoses Acute respiratory failure with hypoxia J96.01 COVID-19 U07.1 Altered mental status R41.82 Dementia F03.90 Paroxysmal atrial fibrillation I48.0 Diastolic CHF I50.30 At risk for aspiration Z91.89 Weakness R53.1 Hypertension I10 Hypertension type: essential hypertension Diabetes E11.8 Diabetes mellitus type: type 2 Diabetes mellitus chcf insulin use: unspecified chcf insulin use status Diabetes mellitus complication status: with unspecified complications Hyperlipidemia E78.5 Hyperlipidemia type: unspecified Depression F32.9 GERD without esophagitis K21.9
[2022-10-17] MEDS ORDERED: hydrALAZINE 10 MG TAB PO SCH (13:00)
== END 2022-10-17 16:44 | disposition home health service (06) | DRG 177 ==
LOC: ED 17:43 → 2W 22:04 → SUATTDRO 22:04 → 2W 23:13